=== PATIENT | female | born 1985 | race Caucasian/White ===

== ENCOUNTER 2016-03-06 22:11 | Inpatient (IN) | payer MEDICAID ==
[2016-03-06] MEDS ORDERED: NORMAL SALINE 1000 ML 1,000 ML IV PRN ×2 (22:30→22:57)
[2016-03-06] MEDS ORDERED: PROMETHAZINE HCL 25 MG TABLET PO ONE (22:57)
[2016-03-06] MEDS ORDERED: OXYCODONE-ACETAMINOPHEN 5-325 MG TABLET PO ONE (22:57)
--- NOTE | 2016-03-06 22:58 | ER Document Report ---
ED Blood Sugar Problem - General Chief Complaint: High Blood Sugar Stated Complaint: BLOOD SUGAR PROBLEMS Time seen by provider: 22:57 Mode of Arrival: Ambulatory Information source: Patient TRAVEL OUTSIDE OF THE [place] IN LAST 30 DAYS: No - HPI Patient complains to provider of: elevated blood sugar Onset: This morning Onset/Duration: Worse Quality of pain: Achy Severity: Moderate Insulin taken: Yes Associated symptoms: Increased thirst, Frequent urination, Nausea Similar symptoms previously: Yes Notes: Patient is a 30-year-old female with a history of type I diabetes who presents to the emergency room complaining of elevated blood sugar with increased thirst and urination that started earlier today, she denies any nausea, vomiting or diarrhea, no fever or chills, she does report mild dysuria, and generalized weakness and body aches, patient does report having recent dental extractions on the , had multiple teeth pulled from the right mandibular region, she states she did take some insulin this morning - Related Data Allergies/Adverse Reactions: amoxicillin trihydrate [From Augmentin] Allergy (Unknown, Verified 03/13/15 14: 46) methylphenidate HCl [From Ritalin] Allergy (Unknown, Verified 03/13/15 14:46) Penicillins Allergy (Unknown, Verified 03/13/15 14:46) Potassium Clavulanate * [From Augmentin] Allergy (Unknown, Verified 03/13/15 14: 46) Sulfa (Sulfonamide Antibiotics) Allergy (Unknown, Verified 03/13/15 14:46) amoxicillin [Amoxicillin] Allergy (Verified 03/13/15 14:46) buspirone HCl [From BuSpar] Allergy (Verified 03/13/15 14:46) Psychosis enoxaparin sodium [From Lovenox] Allergy (Verified 03/13/15 14:46) Estrogens Allergy (Verified 03/13/15 14:46) Heparin Analogues [Heparin Agents] Allergy (Verified 03/13/15 18:53) ondansetron HCl [From Zofran] Allergy (Verified 03/13/15 14:46) Past Medical History - General Information source: Patient - Social History Smoking Status: Current Every Day Smoker Family History: Arthritis, CAD, DM, Hyperlipidemia, Hypertension, Malignancy, Thyroid Disfunction - Past Medical History Cardiac Medical History: Reports: Hx Hypercholesterolemia Pulmonary Medical History: Reports: Hx Asthma, Hx Pneumonia Neurological Medical History: Reports: Hx Seizures - DUE RITALIN Endocrine Medical History: Reports: Hx Diabetes Mellitus Type 1, Hx Hypothyroidism Renal/ Medical History: Reports: Hx Ovarian Cysts GI Medical History: Reports: Hx Gastroesophageal Reflux Disease Musculoskeltal Medical History: Reports Hx Arthritis, Reports Hx Musculoskeletal Trauma - foot fracture Psychiatric Medical History: Reports: Hx Bipolar Disorder, Hx Depression, Hx Schizophrenia Traumatic Medical History: Reports: Hx Fractures - left foot Past Surgical History: Reports: Hx Dilation and Curettage, Hx Oral Surgery - wisdom tooth - Immunizations Immunizations up to date: Yes Hx Diphtheria, Pertussis, Tetanus Vaccination: Yes Hx Pneumococcal Vaccination: 04/16/08 Review of Systems - Review of Systems Constitutional: See HPI EENT: No symptoms reported Cardiovascular: No symptoms reported Respiratory: No symptoms reported Gastrointestinal: No symptoms reported. denies: Abdominal pain, Diarrhea, Nausea, Vomiting Genitourinary: Frequency, Other - Increased thirst Female Genitourinary: No symptoms reported Musculoskeletal: See HPI Skin: No symptoms reported Hematologic/Lymphatic: No symptoms reported Neurological/Psychological: No symptoms reported -: Yes All other systems reviewed and negative Physical Exam - Vital signs Vitals: Temp Pulse Resp BP Pulse Ox 98.6 F 106 H 20 145/93 H 97 03/06/16 22:15 03/06/16 22:15 03/06/16 22:15 03/06/16 22:15 03/06/16 22:15 Interpretation: Hypertensive, Tachycardic - General General appearance: Appears well, Alert - HEENT Head: Normocephalic, Atraumatic Eyes: Normal Pupils: PERRL - Respiratory Respiratory status: No respiratory distress Chest status: Nontender Breath sounds: Normal Chest palpation: Normal - Cardiovascular Rhythm: Regular Heart sounds: Normal auscultation Murmur: No - Abdominal Inspection: Normal Distension: No distension Bowel sounds: Normal Tenderness: Nontender Organomegaly: No organomegaly - Back Back: Normal, Nontender - Extremities General upper extremity: Normal inspection, Nontender, Normal color, Normal ROM , Normal temperature General lower extremity: Normal inspection, Nontender, Normal color, Normal ROM , Normal temperature, Normal weight bearing. No: Donna's sign - Neurological Neuro grossly intact: Yes Cognition: Normal Orientation: AAOx4 Michael Coma Scale Eye Opening: Spontaneous Happy Coma Scale Verbal: Oriented Happy Coma Scale Motor: Obeys Commands Happy Coma Scale Total: 15 Speech: Normal Motor strength normal: LUE, RUE, LLE, RLE Sensory: Normal - Psychological Associated symptoms: Normal affect, Normal mood - Skin Skin Temperature: Warm Skin Moisture: Dry Skin Color: Normal Course - Re-evaluation Re-evalutation: 03/07/16 00:29 Patient was discussed with the hospitalist who agrees to admit to the [facility] for further evaluation and treatment of nonketotic hyperosmolar hyperglycemia, patient will be started on an insulin drip, this plan was discussed with patient who is in agreement - Vital Signs Vital signs: Temp Pulse Resp BP Pulse Ox 98.6 F 106 H 20 145/93 H 97 03/06/16 22:15 03/06/16 22:15 03/06/16 22:15 03/06/16 22:15 03/06/16 22:15 - Laboratory Result Diagrams: 03/06/16 22:35 03/06/16 22:35 Laboratory results interpreted by me: 03/06/16 03/06/16 03/06/16 22:35 22:35 22:35 RBC 3.35 L Hgb 10.7 L Hct 33.1 L MCV 99 H VBG HCO3 Sodium 111.2 L* Potassium 5.6 H Chloride 77 L Carbon Dioxide 15 L BUN 39 H Creatinine 1.69 H Est GFR ( Amer) 43 L Est GFR (Non-Af Amer) 36 L Glucose 1313 H* Serum Osmolality 325 H Total Protein 5.8 L Albumin 3.2 L Urine Glucose (UA) Urine Ketones Urine Blood 03/06/16 03/06/16 22:35 22:35 RBC Hgb Hct MCV VBG HCO3 18.3 L Sodium Potassium Chloride Carbon Dioxide BUN Creatinine Est GFR ( Amer) Est GFR (Non-Af Amer) Glucose Serum Osmolality Total Protein Albumin Urine Glucose (UA) >=500 H Urine Ketones 20 H Urine Blood SMALL H - Transfer of Care Care transferred to following provider: Dr. Miller Critical Care Note - Critical Care Note Total time excluding time spent on procedures (mins): 30 Comments: Patient with markedly elevated blood sugar consistent with nonketotic hyperosmolar hyperglycemia, requiring insulin drip and IMCU admission Discharge - Discharge Clinical Impression: Type 1 diabetes mellitus with hyperosmolarity without nonketotic hyperglycemic hyperosmolar coma Condition: Serious Disposition: ADMITTED INPATIENT Admitting Provider: Hospitalist Unit Admitted: [facility]
[2016-03-06 23:04] LABS: ABSOLUTE BASOPHILS # (AUTO) 0.1 10^3/uL (0.0-0.2); ABSOLUTE EOSINOPHILS # (AUTO) 0.2 10^3/uL (0.0-0.6); ABSOLUTE MONOCYTES (AUTO) 0.6 10^3/uL (0.1-1.4); ABSOLUTE NEUT (AUTO) 4.8 10^3/uL (1.7-8.2); BASOPHILS % (AUTO) 0.8 % (0-2); EOSINOPHILS % (AUTO) 2.8 % (0-6); HEMATOCRIT 33.1 % (36.0-47.0); HEMOGLOBIN 10.7 g/dL (12.0-15.5); LYMPHOCYTES % (AUTO) 25.6 % (13-45); MEAN CORPUSCULAR HEMOGLOBIN 31.9 pg (27.0-33.4); MEAN CORPUSCULAR HGB CONC 32.3 g/dL (32.0-36.0); MEAN CORPUSCULAR VOLUME 99 fl (80-97); MONOCYTES % (AUTO) 8.5 % (3-13); RED BLOOD COUNT 3.35 10^6/uL (3.72-5.28); RED CELL DISTRIBUTION WIDTH 13.3 % (11.5-14.0); SEGMENTED NEUTROPHILS % (AUTO) 62.3 % (42-78); WHITE BLOOD COUNT 7.7 10^3/uL (4.0-10.5)
[2016-03-06 23:09] LABS: VENOUS BLOOD BASE EXCESS -6.8 mmol/L; VENOUS BLOOD HCO3 18.3 mmol/L (20-32); VENOUS BLOOD PCO2 35.4 mmHg (35-63); VENOUS BLOOD PH 7.33 (7.30-7.42)
[2016-03-06 23:14] LABS: APPEARANCE,URINE CLEAR; BILIRUBIN,URINE NEGATIVE (NEGATIVE); GLUCOSE, URINE >=500 mg/dL (NEGATIVE); KETONES,URINE 20 mg/dL (NEGATIVE); LEUKOCYTE ESTERASE,URINE NEGATIVE (NEGATIVE); NITRITE,URINE NEGATIVE (NEGATIVE); PROTEIN,URINE NEGATIVE (NEGATIVE); UROBILINOGEN,URINE NEGATIVE mg/dL (<2.0)
[2016-03-06 23:25] LABS: ALANINE AMINOTRANSFERASE 31 U/L (9-52); ALBUMIN 3.2 g/dL (3.5-5.0); ALKALINE PHOSPHATASE 125 U/L (38-126); ANION GAP 19 (5-19); ASPARTATE AMINO TRANSFERASE 18 U/L (14-36); BILIRUBIN,TOTAL 0.8 mg/dL (0.2-1.3); BLOOD UREA NITROGEN 39 mg/dL (7-20); CALCIUM 9.2 mg/dL (8.4-10.2); CARBON DIOXIDE 15 mmol/L (22-30); CHLORIDE 77 mmol/L (98-107); CREATININE RESULT 1.69 mg/dL (0.52-1.25); POTASSIUM 5.6 mmol/L (3.6-5.0); TOTAL PROTEIN 5.8 g/dL (6.3-8.2)
[2016-03-07 00:02] LABS: GLUCOSE 1313 mg/dL (75-110); SODIUM 111.2 mmol/L (137-145)
[2016-03-07] MEDS ORDERED: GLUCAGON,HUMAN RECOMB 1 MG INJ IM PRN (00:04)
[2016-03-07] MEDS ORDERED: NORMAL SALINE 100 ML with INSULIN REGULAR, HUMAN 100 UNIT IV PRN ×4 (00:04→01:38)
[2016-03-07] MEDS ORDERED: DEXTROSE 40% GEL 15 GM TUBE PO PRN ×4 (00:04→01:38)
[2016-03-07] MEDS ORDERED: DEXTROSE 50%-WATER 25 GM/50 ML DISP.SYRIN IV PRN ×4 (00:04→01:38)
[2016-03-07] MEDS ORDERED: INSULIN LISPRO 100 UNIT/ML 3 ML VIAL ONE (00:11)
[2016-03-07 00:49] LABS: ADD ON TESTING BLD IN LAB ACKNOWLEDGE
[2016-03-07] MEDS ORDERED: NORMAL SALINE 1000 ML 2,000 ML IV ONE ×2 (01:25→02:33)
[2016-03-07] MEDS ORDERED: NORMAL SALINE 1000 ML 1,000 ML IV PRN (01:29)
[2016-03-07] MEDS ORDERED: IPRATROPIUM/ALBUTEROL 0.5-2.5 MG/3 ML AMPUL NEB PRN (01:34)
[2016-03-07] MEDS ORDERED: ACETAMINOPHEN 325 MG TABLET PO PRN (01:34)
[2016-03-07] MEDS ORDERED: NICOTINE 14 MG/24 HR PATCH.TD24 TD PRN (01:35)
[2016-03-07 02:01] LABS: URINE BARBITURATES SCREEN NEGATIVE; URINE METHADONE SCREEN NEGATIVE; URINE PHENCYCLIDINE SCREEN NEGATIVE
[2016-03-07 02:01] LABS: PROTHROMBIN TIME 12.5 SEC (11.4-15.4)
[2016-03-07 02:02] LABS: PARTIAL THROMBOPLASTIN TIME 31.4 SEC (23.5-35.8)
--- NOTE | 2016-03-07 02:11 | PDOC H&P ---
History of Present Illness Admission Date/PCP: 03/07/16 00:20 LION LOPEZ DO, [facility] Patient complains of: BLOOD SUGAR PROBLEMS History of Present Illness: DADA SWEET is a 30 year old female, with underlying type I diabetes mellitus, bipolar disorder, and hypothyroidism, along with other diagnoses to be listed below, and with a long history of noncompliance to both medications and diet, who presents to the emergency room yet again for above complaint. Has a history of multiple admissions to our facility for same, typically DKA. Patient has been discussed with emergency room physician who evaluated the patient. Has noted approximate 24-hour history of elevated blood sugar, with associated increased thirst and urination. Nausea, but no vomiting. No fever chills, diarrhea or dysuria. States has probably been about 4 days since she last had a bowel movement, which is not unusual for her, according to the patient. Denies any "sore spots" anywhere on her body or infected draining areas. Has noted recent onset of a slightly productive cough. Denies chest pain. States she's been compliant with her medications. Status post extraction of multiple teeth, right mandibular and maxillary, on the 10th of this month. Laboratory results are listed in [employer] and are reviewed. X-ray chest x-ray pending. EKG reviewed. Social history/personal habits: . No children. On disability. Half- pack of cigarettes per day. No alcohol or illicit drug use. Allergies/adverse reactions are listed in [employer] and are reviewed. Home medications are reviewed bottle review and discussion with patient and are to be reconciled by nursing staff in [facility]. Home medications initially autopopulated into [employer] may not accurately reflect patient's true medications, dosages, and/or frequencies. REVIEW OF SYSTEMS: Constitutional: No fever or chills. Eyes: Wears glasses. ENT: No swallowing problems or complaints. No hearing problems or complaints. Pulmonary: No current complaints. Cardiovascular: No current complaints, including chest pain. Gastrointestinal: See history and present illness. Skin: No current complaints, including rashes. Hematologic: No unusual easy bruising or bleeding. Neurologic: No current complaints, including numbness or tingling. Musculoskeletal: No current complaints, including painful joints. Psychiatric: Anxiety depression; denies suicidal or homicidal ideation. Endocrine: See history and present illness. Genitourinary: No current complaints, including dysuria. PHYSICAL EXAMINATION: 5 feet 4 inches tall. 66.1 kg. BMI 25 kg/m. Blood pressure 147/94. Pulse 101 and regular. 97% saturation on room air. Respirations are 25 and unlabored. Temperature 98.6. Slightly overweight otherwise well-nourished well-developed though somewhat chronically ill-appearing female who nevertheless appears approximately her stated age. Initially asleep, but awakens easily. Pleasant alert and cooperative. Mildly anxious; otherwise no obvious distress. Female emergency room nurse Fabi is present. Skin is warm and dry. No grossly obvious evidence of rash in areas of skin examined. No subcutaneous nodules palpated. ENT: Hearing grossly normal to normal conversation. Tongue midline on protrusion pink and slightly tacky. Eyes: No scleral icterus. Pupils equal and reactive to light at 4 mm. [place] conjunctivae. Neck is supple and nontender to gentle active range of motion and palpation. Midline trachea. No palpable thyroid nodule mass enlargement or tenderness. Lymphatic: No palpable cervical or clavicular nodes. Neck and lymphatic exams limited by patient body habitus. Psychiatric: Fair to reasonable insight into acute and chronic medical issues. Oriented to time location and why here. Lungs: Auscultation reveals clear and equal breath sounds bilaterally. No use of accessory respiratory muscles. Occasional slightly productive cough. Cardiovascular: Heart regular rate and rhythm, without gallop murmur or rub. No carotid or abdominal aortic bruits. No ankle or pedal edema. palpable dorsalis pedis pulses. Abdomen: soft, slightly obese, nontender with positive bowel sounds. Unable to adequately evaluate abdomen for masses or organomegaly due to body habitus. Extremities: Feet are warm and dry. No calf tenderness to compression. No grossly obvious visual evidence of calf swelling. Gentle manipulation of lower extremities fails to reveal any obvious evidence of injury or instability to knees hips or ankles. Neurologic: Moves upper extremities grossly normally. Moves from a lateral decubitus to supine position without undue difficulty. Patellar reflexes absent. Light touch is intact at feet. Dorsiflexion and plantarflexion of feet 5 / 5 and symmetric. Past Medical History Cardiac Medical History: Reports: Pulmonary Embolism - History of same. Denies: Congestive Heart Failure, DVT, Myocardial Infarction, Hypertension Pulmonary Medical History: Reports: Asthma, Pneumonia EENT Medical History: Reports: Eyes - Reading glasses Denies: Ears, Throat Neurological Medical History: Reports: Seizures - DUE RITALIN Denies: Hemorrhagic CVA, Ischemic CVA Endocrine Medical History: Reports: Diabetes Mellitus Type 1, Hypothyroidism Renal/ Medical History: Reports: None GI Medical History: Reports: Gastroesophageal Reflux Disease Denies: Cirrhosis, Hepatitis, Peptic Ulcer Disease Musculoskeltal Medical History: Denies: Arthritis Skin Medical History: Reports: None Denies: Eczema, Psoriasis Psychiatric Medical History: Reports: Bipolar Disorder, Depression, General Anxiety Disorder, Tobacco Dependency Denies: Alcohol Dependency, Substance Abuse Hematology: Denies: Anemia Infectious Medical History: Denies: Hepatitis B, Hepatitis C Past Surgical History Past Surgical History: Reports: Other - D&C. Multiple dental extractions. Social History Information Source: Patient, Emergency Med Personnel, [facility] Records Smoking Status: Current Every Day Smoker Frequency of Alcohol Use: None Drugs: None - Advance Directive Resuscitation Status: Full Code Surrogate healthcare decision maker:: Mother Family History Family History: Arthritis, CAD, DM, Hyperlipidemia, Hypertension, Malignancy, Thyroid Disfunction Parental Family History Reviewed: Yes Children Family History Reviewed: NA Sibling(s) Family History Reviewed.: Yes Medication/Allergy Home Medications: Albuterol Sulfate [Proair HFA Inhalation Aerosol 8.5 gm MDI] 1 puff IH Q4HP PRN 03/07/16 Benztropine Mesylate [Cogentin 1 mg Tablet] 1 tab PO BID 03/07/16 Clonazepam [Klonopin] 0.5 mg PO BID 03/07/16 Cyclobenzaprine HCl [Flexeril 10 mg Tablet] 10 mg PO QHS 03/07/16 Folic Acid 0.8 mg PO DAILY 03/07/16 Gabapentin [Neurontin 300 mg Capsule] 300 mg PO Q12 03/07/16 Haloperidol [Haldol 5 mg Tablet] 15 mg PO QHS 03/07/16 Ibuprofen [Motrin 800 mg Tablet] 800 mg PO TID 03/07/16 Insulin Aspart [Novolog Flexpen] 0 unit SUBCUT .SLD SCALE 03/07/16 Insulin Degludec [Tresiba Flextouch U-100] 20 unit SQ QAM 03/07/16 Levothyroxine Sodium [Synthroid 0.15 mg Tablet] 0.15 mg PO DAILY 03/07/16 Omeprazole 40 mg PO BID 03/07/16 Allergies/Adverse Reactions: amoxicillin trihydrate [From Augmentin] Allergy (Unknown, Verified 03/13/15 14: 46) methylphenidate HCl [From Ritalin] Allergy (Unknown, Verified 03/07/16 05:10) seizure Penicillins Allergy (Unknown, Verified 03/13/15 14:46) Potassium Clavulanate * [From Augmentin] Allergy (Unknown, Verified 03/13/15 14: 46) Sulfa (Sulfonamide Antibiotics) Allergy (Unknown, Verified 03/07/16 05:10) rash amoxicillin [Amoxicillin] Allergy (Verified 03/13/15 14:46) buspirone HCl [From BuSpar] Allergy (Verified 03/13/15 14:46) Psychosis enoxaparin sodium [From Lovenox] Allergy (Verified 03/07/16 05:09) rash Estrogens Allergy (Verified 03/13/15 14:46) fondaparinux [From Arixtra] Allergy (Verified 03/07/16 05:09) rash Heparin Analogues [Heparin Agents] Allergy (Verified 03/07/16 05:09) rash ondansetron HCl [From Zofran] Allergy (Verified 03/13/15 14:46) Physical Exam Vital Signs: Temp Pulse Resp BP Pulse Ox 98.6 F 106 H 20 147/94 H 97 03/06/16 22:15 03/06/16 22:15 03/07/16 01:00 03/07/16 01:00 03/07/16 01:01 Intake & Output 03/06/16 03/07/16 03/08/16 00:59 00:59 00:59 Weight 66.1 kg Assessment & Plan - Diagnosis (1) History of medication noncompliance Is this a current diagnosis for this admission?: Yes (2) Tobacco dependency Is this a current diagnosis for this admission?: YesPlan: When necessary nicotine patch. (3) Cough Is this a current diagnosis for this admission?: YesPlan: Chest x-ray. (4) Hypothyroidism Qualifiers: Hypothyroidism type: unspecified Qualified Code(s): E03.9 - Hypothyroidism, unspecified Is this a current diagnosis for this admission?: YesPlan: TSH pending. Resume home medications as appropriate once these have been reviewed. (5) Acute renal failure (ARF) Qualifiers: Acute renal failure type: unspecified Qualified Code(s): N17.9 - Acute kidney failure, unspecified Is this a current diagnosis for this admission?: YesPlan: Likely prerenal. Serial chemistry. (6) Type 1 diabetes mellitus with hyperosmolarity without nonketotic hyperglycemic hyperosmolar coma Is this a current diagnosis for this admission?: YesPlan: Patient will be admitted under DKA protocol. Insulin drip. Vigorous fluid hydration. Strict intake and output. Q 4 hours chemistry 7. Hourly Accu- Cheks. Addition of dextrose to intravenous fluid once serum glucose and/or Accu- Cheks 275 or less. Patient is full code. I have strongly encouraged patient not to get out of bed without notifying staff , to avoid a fall with injury. Knee high SCDs for DVT prophylaxis. Impression and plans were discussed with patient , who concurs. Critical care Time spent in evaluation and management of patient: 65 minutes (7) DVT prophylaxis Is this a current diagnosis for this admission?: YesPlan: With allergies to Heparin, Lovenox, and Arixtra, and with personal history of PE , will add aspirin to standard SCD's. - Inpatient Certification Based on my medical assessment, after consideration of the patient's comorbidities, presenting symptoms, or acuity I expect that the services needed warrant INPATIENT care.: Yes I certify that my determination is in accordance with my understanding of Medicare's requirements for reasonable and necessary INPATIENT services [42 CFR 412.3e].: Yes Medical Necessity: Need Close Monitoring Due to Risk of Patient Decompensation, Need For IV Fluids, Need For Continuous Telemetry Monitoring, Risk of Complication if Not Cared For in Hospital, Risk of Diagnosis Which Will Require Inpatient Eval/Care/Monitoring Post Hospital Care: D/C or Transfer Summary
[2016-03-07 02:24] LABS: CREATINE KINASE MB 0.82 ng/mL (<4.55)
[2016-03-07 02:25] LABS: TROPONIN I < 0.012 ng/mL
[2016-03-07 02:32] LABS: ANION GAP 14 (5-19); BLOOD UREA NITROGEN 38 mg/dL (7-20); CALCIUM 8.3 mg/dL (8.4-10.2); CARBON DIOXIDE 17 mmol/L (22-30); CHLORIDE 90 mmol/L (98-107); CREATINE KINASE 77 U/L (30-135); CREATININE RESULT 1.53 mg/dL (0.52-1.25); SODIUM 121.2 mmol/L (137-145)
[2016-03-07 02:48] LABS: GLUCOSE 1011 mg/dL (75-110)
[2016-03-07 02:49] LABS: POTASSIUM 4.4 mmol/L (3.6-5.0)
[2016-03-07] MEDS ORDERED: PROMETHAZINE HCL INJ 25 MG/1 ML VIAL IV PRN (03:11)
[2016-03-07] MEDS ORDERED: DEXTROSE 5%-NORMAL SALINE 1,000 ML IV PRN (06:11)
[2016-03-07 06:37] LABS: ABSOLUTE BASOPHILS # (AUTO) 0.1 10^3/uL (0.0-0.2); ABSOLUTE EOSINOPHILS # (AUTO) 0.4 10^3/uL (0.0-0.6); ABSOLUTE LYMPHOCYTES (AUTO) 3.6 10^3/uL (0.5-4.7); ABSOLUTE MONOCYTES (AUTO) 0.7 10^3/uL (0.1-1.4); ABSOLUTE NEUT (AUTO) 4.4 10^3/uL (1.7-8.2); BASOPHILS % (AUTO) 0.7 % (0-2); EOSINOPHILS % (AUTO) 4.2 % (0-6); HEMATOCRIT 30.4 % (36.0-47.0); HEMOGLOBIN 10.5 g/dL (12.0-15.5); HGB HCT DIFFERENCE 1.1; LYMPHOCYTES % (AUTO) 38.9 % (13-45); MEAN CORPUSCULAR HGB CONC 34.5 g/dL (32.0-36.0); MONOCYTES % (AUTO) 8.2 % (3-13); RED BLOOD COUNT 3.39 10^6/uL (3.72-5.28); RED CELL DISTRIBUTION WIDTH 12.8 % (11.5-14.0); WHITE BLOOD COUNT 9.2 10^3/uL (4.0-10.5)
[2016-03-07 06:42] LABS: MEAN CORPUSCULAR VOLUME 90 fl (80-97)
[2016-03-07 07:02] LABS: ANION GAP 13 (5-19); BLOOD UREA NITROGEN 30 mg/dL (7-20); CARBON DIOXIDE 19 mmol/L (22-30); CHLORIDE 105 mmol/L (98-107); CREATININE RESULT 1.14 mg/dL (0.52-1.25); GLUCOSE 235 mg/dL (75-110); POTASSIUM 3.6 mmol/L (3.6-5.0); SODIUM 136.5 mmol/L (137-145)
[2016-03-07 08:07] VITALS: BP 122/83
[2016-03-07] MEDS ORDERED: FOLIC ACID 1 MG TABLET PO SCH (10:00)
[2016-03-07] MEDS ORDERED: ASPIRIN 81 MG TABLET, ENT COATED PO SCH (10:00)
[2016-03-07] MEDS ORDERED: (PENDING PHARMACY ID) (Folic Acid [Folic Acid] 0.8 MG) PO SCH (10:00)
[2016-03-07] MEDS ORDERED: BENZTROPINE MESYLATE 1 MG TABLET PO SCH ×2 (10:00→22:00)
[2016-03-07] MEDS ORDERED: HALOPERIDOL 5 MG TABLET PO SCH ×2 (10:00→22:00)
[2016-03-07] MEDS ORDERED: FAMOTIDINE INJ/PF 20 MG/2 ML SDV IV SCH (10:00)
[2016-03-07] MEDS ORDERED: GABAPENTIN 300 MG CAPSULE PO SCH ×2 (10:00→22:00)
[2016-03-07] MEDS ORDERED: LEVOTHYROXINE SODIUM 0.15 MG TABLET PO SCH (10:00)
[2016-03-07] MEDS ORDERED: DOCUSATE SODIUM 100 MG CAPSULE PO SCH (10:00)
[2016-03-07] MEDS ORDERED: HALOPERIDOL 15 MG PO SCH (10:00)
--- NOTE | 2016-03-07 10:05 | EKG REPORT ---
SEVERITY:- OTHERWISE NORMAL ECG - SINUS TACHYCARDIA : Confirmed by: Nimo Herrera MD 07-Mar-2016 10:04:47
[2016-03-07 10:40] LABS: ANION GAP 12 (5-19); BLOOD UREA NITROGEN 23 mg/dL (7-20); CARBON DIOXIDE 18 mmol/L (22-30); CHLORIDE 111 mmol/L (98-107); CREATININE RESULT 0.93 mg/dL (0.52-1.25); GLUCOSE 99 mg/dL (75-110); POTASSIUM 3.3 mmol/L (3.6-5.0); SODIUM 140.6 mmol/L (137-145)
[2016-03-07] MEDS ORDERED: (PENDING PHARMACY ID) (Clonazepam [Klonopin] 0.5 MG) PO PRN (12:07)
[2016-03-07] MEDS ORDERED: LEVOTHYROXINE SODIUM 0.15 MG TABLET PO ONE (13:00)
[2016-03-07] MEDS ORDERED: POTASSIUM CHLORIDE 10 MEQ TABLET.SA PO ONE (13:30)
[2016-03-07] MEDS ORDERED: CLONAZEPAM 1 MG TABLET PO PRN (13:54)
[2016-03-07] MEDS ORDERED: LANSOPRAZOLE 30 MG TAB.RAP.DR PO SCH (18:00)
[2016-03-07] MEDS ORDERED: (PENDING PHARMACY ID) (Doxepin Hcl [Doxepin Hcl] 100 MG) PO SCH (22:00)
[2016-03-07] MEDS ORDERED: CYCLOBENZAPRINE HCL 10 MG TABLET PO SCH (22:00)
[2016-03-07] MEDS ORDERED: DOXEPIN HCL 25 MG CAPSULE PO SCH (22:00)
[2016-03-08] MEDS ORDERED: (PENDING PHARMACY ID) (Folic Acid [Folic Acid] 0.8 MG) PO SCH (10:00)
[2016-03-08] MEDS ORDERED: LEVOTHYROXINE SODIUM 0.15 MG TABLET PO SCH (10:00)
--- NOTE | 2016-03-08 17:28 | DISCHARGE SUMMARY E ---
Discharge Summary NAME: DADA SWEET : 1985 AGE: 30Y ADMITTED: 03/07/2016 DISCHARGED: 03/07/2016 AGAINST MEDICAL ADVICE DATE PATIENT LEFT AMA: 03/07/2016 CODE STATUS AT TIME OF AMA: FULL CODE. PRIMARY CARE PROVIDER: Elana Escalera. WORKING DIAGNOSIS AT TIME OF AMA: 1. Hyperosmolar nonketotic state. 2. Diabetes mellitus type 1. 3. Noncompliance. 4. Bipolar disorder. 5. History of pulmonary embolism. 6. History of asthma. 7. Hypothyroidism. 8. Gastroesophageal reflux disease. 9. General anxiety disorder. 10. Tobacco dependency. HISTORY OF PRESENT ILLNESS: The patient is a 30-year-old female with a past medical history of diabetes mellitus type 1 and numerous admissions for diabetic ketoacidosis that is well known to the hospitalist service. The patient presented to the Emergency Department with a chief complaint of blood sugar problems. The patient noted a 24-hour history of having elevated blood sugars with an associated increased thirst, urination, nausea without vomiting. The patient denied any fevers, chills, diarrhea, dysuria. The patient had stated that she had indeed been compliant with her medications, however, was unable to produce the bottles for such. The patient on presentation was found to have glucose of 1313 with a sodium of 111, potassium of 5.6, CO2 of 15 without a gap. The patient's TSH was found to be 94, and the patient was referred to the hospitalist for admission and management. HOSPITAL COURSE: The patient was admitted to [facility]. The patient was aggressively volume resuscitated and was started on an insulin drip at [facility] protocol. The patient's blood sugars did improve, and the patient's electrolytes improved with hydration; however, as soon as the patient's blood sugars were in the 200 range, the patient requested against medical advice paperwork as she wanted to leave. The patient would not give specific reason other than she no longer needed to be in the hospital, and the patient left against medical advice. The patient was aware of the risks associated with this including . TIME SPENT: Time spent on this AMA summary is 10 minutes. DICTATING PHYSICIAN: ADITYA FELIX NP [id number] PHY#: [id number] ID: [id number] JOB#: [id number] ACCT: [id number] cc:Maegan HURST NP >
== END 2016-03-07 13:45 | disposition left against medical advice (07) | DRG 639 ==
LOC: ER 22:11 → EH 03-07 00:20 → UNDOADMIN 03-07 00:20 → EH 03-07 01:34 → 3W 03-07 03:25
PROVIDERS: ADMIT Family Medicine; ATTEND Family Medicine
DX: E10.69 Type 1 diabetes mellitus with other specified complication (principal); E10.65 Type 1 diabetes mellitus with hyperglycemia; N17.9 Acute kidney failure, unspecified; F31.9 Bipolar disorder, unspecified; E03.9 Hypothyroidism, unspecified; F17.210 Nicotine dependence, cigarettes, uncomplicated; J45.909 Unspecified asthma, uncomplicated; E66.3 Overweight; D64.9 Anemia, unspecified; K21.9 Gastro-esophageal reflux disease without esophagitis; Z79.4 Long term (current) use of insulin; R05 Cough; F41.1 Generalized anxiety disorder; Z91.19 Patient's noncompliance with other medical treatment and regimen; Z86.711 Personal history of pulmonary embolism; Z88.0 Allergy status to penicillin; Z88.2 Allergy status to sulfonamides; Z88.8 Allergy status to other drugs, medicaments and biological substances; Z82.61 Family history of arthritis; Z83.3 Family history of diabetes mellitus; Z82.49 Family history of ischemic heart disease and other diseases of the circulatory system; Z80.9 Family history of malignant neoplasm, unspecified; Z98.818 Other dental procedure status
CPT/HCPCS: 36415; 71010; 80048; 80053; 80307; 81001; 82550; 82553; 82803; 82962; 83735; 83930; 84443; 84484; 84703; 85025; 85610; 85730; 93005; 93010; 94640; 96360; 99291; J1815; J7030; J7620; S0028

== ENCOUNTER 2016-04-22 09:40 | Emergency (ER) | payer MEDICAID, OTHER ==
[2016-04-22 11:24] LABS: APPEARANCE,URINE CLOUDY; BILIRUBIN,URINE NEGATIVE (NEGATIVE); GLUCOSE, URINE 150 mg/dL (NEGATIVE); KETONES,URINE NEGATIVE (NEGATIVE); LEUKOCYTE ESTERASE,URINE LARGE (NEGATIVE); NITRITE,URINE NEGATIVE (NEGATIVE); PROTEIN,URINE 100 mg/dL (NEGATIVE); URINE SPECIFIC GRAVITY 1.014; UROBILINOGEN,URINE NEGATIVE mg/dL (<2.0)
--- NOTE | 2016-04-22 11:48 | ER Document Report ---
ED General - General Chief Complaint: Urinary Problem Stated Complaint: URINARY SYMPTOMS Mode of Arrival: Ambulatory Information source: Patient Notes: 30-year-old female presents with 2 separate complaints. Patient notes that she' s been having burning on urination for the past 4 days. Patient also notes that she's had itching and rash of her left shoulder for 2-3 days. Patient notes she took Benadryl one time. Patient is unsure of any allergens TRAVEL OUTSIDE OF THE [place] IN LAST 30 DAYS: No - HPI Onset: Other Onset/Duration: Persistent Quality of pain: Burning Severity: Mild Pain Level: 1 Associated symptoms: Other Exacerbated by: Denies Relieved by: Denies Similar symptoms previously: No Recently seen / treated by doctor: No - Related Data Allergies/Adverse Reactions: amoxicillin trihydrate [From Augmentin] Allergy (Unknown, Verified 04/22/16 09: 43) methylphenidate HCl [From Ritalin] Allergy (Unknown, Verified 04/22/16 09:43) seizure Penicillins Allergy (Unknown, Verified 04/22/16 09:43) Potassium Clavulanate * [From Augmentin] Allergy (Unknown, Verified 04/22/16 09: 43) Sulfa (Sulfonamide Antibiotics) Allergy (Unknown, Verified 04/22/16 09:43) rash amoxicillin [Amoxicillin] Allergy (Verified 04/22/16 09:43) buspirone HCl [From BuSpar] Allergy (Verified 04/22/16 09:43) Psychosis enoxaparin sodium [From Lovenox] Allergy (Verified 04/22/16 09:43) rash Estrogens Allergy (Verified 04/22/16 09:43) fondaparinux [From Arixtra] Allergy (Verified 04/22/16 09:43) rash Heparin Analogues [Heparin Agents] Allergy (Verified 03/07/16 05:09) rash ondansetron HCl [From Zofran] Allergy (Verified 03/13/15 14:46) Past Medical History - General Last Menstrual Period: 1 year ago - Social History Smoking Status: Current Every Day Smoker Cigarette use (# per day): No Chew tobacco use (# tins/day): No Smoking Education Provided: No Frequency of alcohol use: None Drug Abuse: None Family History: Arthritis, CAD, DM, Hyperlipidemia, Hypertension, Malignancy, Thyroid Disfunction Patient has suicidal ideation: No - Past Medical History Cardiac Medical History: Reports: Hx Hypercholesterolemia, Hx Pulmonary Embolism - History of same. Denies: Hx Congestive Heart Failure, Hx DVT, Hx Heart Attack, Hx Hypertension Pulmonary Medical History: Reports: Hx Asthma, Hx Pneumonia Neurological Medical History: Reports: Hx Seizures - DUE RITALIN Endocrine Medical History: Reports: Hx Diabetes Mellitus Type 1, Hx Hypothyroidism Renal/ Medical History: Reports: Hx Ovarian Cysts. Denies: Hx Peritoneal Dialysis GI Medical History: Reports: Hx Gastroesophageal Reflux Disease. Denies: Hx Cirrhosis, Hx Hepatitis Musculoskeltal Medical History: Denies Hx Arthritis, Reports Hx Musculoskeletal Trauma - foot fracture Skin Medical History: Denies Hx Eczema, Denies Hx Psoriasis Psychiatric Medical History: Reports: Hx Bipolar Disorder, Hx Depression, Hx Schizophrenia Traumatic Medical History: Reports: Hx Fractures - left foot Infectious Medical History: Denies: Hx Hepatitis Past Surgical History: Reports: Hx Dilation and Curettage, Hx Oral Surgery - wisdom tooth, Other - D&C. Multiple dental extractions. - Immunizations Immunizations up to date: Yes Hx Diphtheria, Pertussis, Tetanus Vaccination: Yes Hx Pneumococcal Vaccination: 04/16/08 Review of Systems - Review of Systems Notes: REVIEW OF SYSTEMS: CONSTITUTIONAL : Denies fever, chills, or sweats. Denies recent illness. EENT: Denies eye, ear, throat, or mouth pain or symptoms. Denies nasal or sinus congestion or discharge. Denies throat, tongue, or mouth swelling or difficulty swallowing. CARDIOVASCULAR: Denies chest pain. Denies palpitations or racing or irregular heart beat. Denies ankle edema. RESPIRATORY: Denies cough, cold, or chest congestion. Denies shortness of breath, difficulty breathing, or wheezing. GASTROINTESTINAL: Denies abdominal pain or distention. Denies nausea, vomiting , or diarrhea. Denies blood in vomitus, stools, or per rectum. Denies black, tarry stools. Denies constipation. GENITOURINARY: Admits to burning on urination FEMALE GENITOURINARY: Denies vaginal bleeding, heavy or abnormal periods, irregular periods. Denies vaginal discharge or odor. MUSCULOSKELETAL: Denies back or neck pain or stiffness. Denies joint pain or swelling. SKIN: Admits to shoulder rash HEMATOLOGIC : Denies easy bruising or bleeding. LYMPHATIC: Denies swollen, enlarged glands. NEUROLOGICAL: Denies confusion or altered mental status. Denies passing out or loss of consciousness. Denies dizziness or lightheadedness. Denies headache. Denies weakness or paralysis or loss of use of either side. Denies problems with gait or speech. Denies sensory loss, numbness, or tingling. Denies seizures. PSYCHIATRIC: Denies anxiety or stress. Denies depression, suicidal ideation, or homicidal ideation. ALL OTHER SYSTEMS REVIEWED AND NEGATIVE. Dictation was performed using [employer] voice recognition software PHYSICAL EXAMINATION: GENERAL: Well-appearing, well-nourished and in no acute distress. HEAD: Atraumatic, normocephalic. EYES: Pupils equal round and reactive to light, extraocular movements intact, conjunctiva are normal. ENT: Nares patent, oropharynx clear without exudates. Moist mucous membranes. NECK: Normal range of motion, supple without lymphadenopathy LUNGS: Breath sounds clear to auscultation bilaterally and equal. No wheezes rales or rhonchi. HEART: Regular rate and rhythm without murmurs ABDOMEN: Soft, nontender, nondistended abdomen. No guarding, no rebound. No masses appreciated. Female : deferred Musculoskeletal: Normal range of motion, no pitting or edema. No cyanosis. NEUROLOGICAL: Cranial nerves grossly intact. Normal speech, normal gait. Normal sensory, motor exams PSYCH: Normal mood, normal affect. SKIN: Multiple hives noted of the left scapular and shoulder region no secondary sign of infection Physical Exam - Vital signs Vitals: Temp Pulse Resp BP Pulse Ox 97.4 F 88 14 122/76 99 04/22/16 09:44 04/22/16 09:44 04/22/16 09:44 04/22/16 09:44 04/22/16 09:44 Course - Re-evaluation Re-evalutation: 04/22/16 15:06 Urinalysis was consistent with a UTI, patient was started on antibiotic. She is instructed to take Benadryl for her hives. She is been given a double cutter for testing as well. Patient is rotated to return immediately if there are any other concerns After performing a Medical Screening Examination, I estimate there is LOW risk for AIRWAY COMPROMISE, ANAPHYLAXIS, CELLULITIS, EPIGLOTTIS, or NECROTIZING FASCIITIS, thus I consider the discharge disposition reasonable. Also, there is no evidence or peritonitis, sepsis, or toxicity. The patient and I have discussed the diagnosis and risks, and we agree with discharging home with close follow-up with the understanding that symptoms and presentations can change. We also discussed returning to the Emergency Department immediately if new or worsening symptoms occur. We have discussed the symptoms which are most concerning (e.g., difficulty breathing or swallowing, fever, changing or worsening pain) that necessitate immediate return. - Vital Signs Vital signs: Temp Pulse Resp BP Pulse Ox 97.5 F 84 16 120/81 99 04/22/16 11:44 04/22/16 11:44 04/22/16 11:44 04/22/16 11:44 04/22/16 11:44 - Laboratory Laboratory results interpreted by me: 04/22/16 10:44 Urine Protein 100 H Urine Glucose (UA) 150 H Urine Blood MODERATE H Ur Leukocyte Esterase LARGE H Discharge - Discharge Clinical Impression: allergic rash UTI (urinary tract infection) Qualifiers: Urinary tract infection type: acute cystitis Hematuria presence: with hematuria Qualified Code(s): N30.01 - Acute cystitis with hematuria Condition: Stable Disposition: HOME, SELF-CARE Instructions: Urinary Tract Infection ([facility]) Prescriptions: Cephalexin Monohydrate [Keflex 500 mg Capsule] 500 mg PO BID #10 capsule Phenazopyridine HCl [Pyridium 100 Mg Tablet] 100 mg PO Q8 #9 tablet Referrals: CLEMENTE COWART PA-C [Primary Care Provider] - Follow up in 3-5 days CHEMA ROBBINS DO [ACTIVE STAFF] - Follow up in 3-5 days
[2016-04-22 11:56] VITALS: BP 120/81
== END 2016-04-22 11:57 | disposition home or self-care (01) ==
LOC: ER 09:40
DX: N30.01 Acute cystitis with hematuria (principal); R30.0 Dysuria; L50.0 Allergic urticaria; F17.200 Nicotine dependence, unspecified, uncomplicated; E10.9 Type 1 diabetes mellitus without complications; J45.909 Unspecified asthma, uncomplicated; Z88.0 Allergy status to penicillin; Z88.8 Allergy status to other drugs, medicaments and biological substances; Z88.2 Allergy status to sulfonamides; Z86.711 Personal history of pulmonary embolism
CPT/HCPCS: 81001; 81025; 99283

== ENCOUNTER 2016-05-05 09:55 | Emergency (ER) | payer MEDICAID ==
[2016-05-05 10:03] VITALS: BP 102/66
--- NOTE | 2016-05-05 10:38 | ER Document Report ---
ED Extremity Problem, Lower - General Chief Complaint: Foot Injury Stated Complaint: FOOT PAIN Notes: She is a 30-year-old female, past medical history type I diabetes, schizophrenia , presents with right foot pain after she twisted her ankle last night and landed on her right foot. She says she is having pain when she walks. She denies numbness, tingling, open wounds, ankle pain or any other injuries. TRAVEL OUTSIDE OF THE [place] IN LAST 30 DAYS: No - Related Data Allergies/Adverse Reactions: amoxicillin trihydrate [From Augmentin] Allergy (Unknown, Verified 05/05/16 10: 02) methylphenidate HCl [From Ritalin] Allergy (Unknown, Verified 05/05/16 10:02) seizure Penicillins Allergy (Unknown, Verified 05/05/16 10:02) Potassium Clavulanate * [From Augmentin] Allergy (Unknown, Verified 05/05/16 10: 02) Sulfa (Sulfonamide Antibiotics) Allergy (Unknown, Verified 05/05/16 10:02) rash amoxicillin [Amoxicillin] Allergy (Verified 05/05/16 10:02) buspirone HCl [From BuSpar] Allergy (Verified 05/05/16 10:02) Psychosis enoxaparin sodium [From Lovenox] Allergy (Verified 05/05/16 10:02) rash Estrogens Allergy (Verified 05/05/16 10:02) fondaparinux [From Arixtra] Allergy (Verified 05/05/16 10:02) rash Heparin Analogues [Heparin Agents] Allergy (Verified 03/07/16 05:09) rash ondansetron HCl [From Zofran] Allergy (Verified 03/13/15 14:46) Past Medical History - General Information source: Patient - Social History Smoking Status: Current Every Day Smoker Chew tobacco use (# tins/day): No Frequency of alcohol use: None Drug Abuse: None Family History: Arthritis, CAD, DM, Hyperlipidemia, Hypertension, Malignancy, Thyroid Disfunction Patient has suicidal ideation: No Patient has homicidal ideation: No - Past Medical History Cardiac Medical History: Reports: Hx Hypercholesterolemia, Hx Pulmonary Embolism - History of same. Denies: Hx Congestive Heart Failure, Hx DVT, Hx Heart Attack, Hx Hypertension Pulmonary Medical History: Reports: Hx Asthma, Hx Pneumonia Neurological Medical History: Reports: Hx Seizures - DUE RITALIN Endocrine Medical History: Reports: Hx Diabetes Mellitus Type 1, Hx Hypothyroidism Renal/ Medical History: Reports: Hx Ovarian Cysts. Denies: Hx Peritoneal Dialysis GI Medical History: Reports: Hx Gastroesophageal Reflux Disease. Denies: Hx Cirrhosis, Hx Hepatitis Musculoskeltal Medical History: Denies Hx Arthritis, Reports Hx Musculoskeletal Trauma - foot fracture Skin Medical History: Denies Hx Eczema, Denies Hx Psoriasis Psychiatric Medical History: Reports: Hx Bipolar Disorder, Hx Depression, Hx Schizophrenia Traumatic Medical History: Reports: Hx Fractures - left foot Infectious Medical History: Denies: Hx Hepatitis Past Surgical History: Reports: Hx Dilation and Curettage, Hx Oral Surgery - wisdom tooth, Other - D&C. Multiple dental extractions. - Immunizations Immunizations up to date: Yes Hx Diphtheria, Pertussis, Tetanus Vaccination: Yes Hx Pneumococcal Vaccination: 04/16/08 Review of Systems - Review of Systems Notes: REVIEW OF SYSTEMS: CONSTITUTIONAL: -fevers, -chills EENT: -eye pain, -difficulty swallowing, -nasal congestion CARDIOVASCULAR:-chest pain, -syncope. RESPIRATORY: -cough, -SOB GASTROINTESTINAL: -abdominal pain, - nausea, -vomiting, -diarrhea GENITOURINARY: -dysuria, -hematuria MUSCULOSKELETAL: +right foot pain, -back pain, -neck pain SKIN: -rash or skin lesions. HEMATOLOGIC: -easy bruising or bleeding. LYMPHATIC: -swollen, enlarged glands. NEUROLOGICAL: -altered mental status or loss of consciousness, -headache, - neurologic symptoms PSYCHIATRIC: -anxiety, -depression. ALL OTHER SYSTEMS REVIEWED AND NEGATIVE. Physical Exam - Vital signs Vitals: Temp Pulse Resp BP Pulse Ox 97.4 F 98 18 102/66 98 05/05/16 10:05/05/16 10:05/05/16 10:01 05/05/16 10:05/05/16 10:01 - Notes Notes: PHYSICAL EXAMINATION: GENERAL: Well-appearing, well-nourished and in no acute distress. HEAD: Atraumatic, normocephalic. EYES: Pupils equal round and reactive to light, extraocular movements intact, sclera anicteric, conjunctiva are normal. ENT: nares patent, oropharynx clear without exudates. Moist mucous membranes. NECK: Normal range of motion, supple without lymphadenopathy LUNGS: Breath sounds clear to auscultation bilaterally and equal. No wheezes rales or rhonchi. HEART: Regular rate and rhythm without murmurs ABDOMEN: Soft, nontender, normoactive bowel sounds. No guarding, no rebound. No masses appreciated. EXTREMITIES: Tenderness over right distal 5th metatarsal, brisk capillary refill , N/V intact distally, Normal range of motion, no pitting or edema. No cyanosis. NEUROLOGICAL: Cranial nerves grossly intact. Normal speech, normal gait. Normal sensory, motor, and reflex exams. PSYCH: Normal mood, normal affect. SKIN: Warm, Dry, normal turgor, no rashes or lesions noted. Course - Re-evaluation Re-evalutation: Patient with no fractures on x-ray. No base of fifth metatarsal tenderness to suggest Salgado fracture. Placed in an Maximino wrap and instructed her about RICE. She will follow up with her primary care physician and ortho as needed. - Vital Signs Vital signs: Temp Pulse Resp BP Pulse Ox 97.4 F 98 18 102/66 98 05/05/16 10:05/05/16 10:05/05/16 10:05/05/16 10:05/05/16 10:01 - Diagnostic Test Radiology reviewed: Image reviewed, Reports reviewed Radiology results interpreted by me: Right x-ray and foot: NAD Discharge - Discharge Clinical Impression: Contusion of foot, right Qualifiers: Encounter type: initial encounter Qualified Code(s): S90.31XA - Contusion of right foot, initial encounter Condition: Stable Disposition: HOME, SELF-CARE Additional Instructions: Contusion Your injury has resulted in a contusion -- a crushing of the deep tissues. No injury to important structures was detected during the physician's exam. Contusions vary in the amount of pain they cause, and in the length of time required for healing. Typically, the area will become bruised, and will remain painful to touch for two or three weeks. However, most patients are back to working and playing within a few days. After the initial period of rest and cold-packs, your symptoms (together with the doctor's recommendations) will determine how rapidly you can get back to full activity. Usually this means "do what feels okay, but don't do things that hurt." If re-examination was recommended, it's important to follow up as instructed. Call the doctor or return any time if pain increases, if swelling becomes severe, if you develop numbness or weakness in an injured extremity, or if any other alarming symptoms occur. Referrals: KASI CROOKS MD [ACTIVE STAFF] - Follow up as needed
== END 2016-05-05 10:50 | disposition home or self-care (01) ==
LOC: ER 09:55
DX: S90.31XA Contusion of right foot, initial encounter (principal); X50.1XXA Overexertion from prolonged static or awkward postures, initial encounter; M79.671 Pain in right foot; E10.9 Type 1 diabetes mellitus without complications; J45.909 Unspecified asthma, uncomplicated; F17.200 Nicotine dependence, unspecified, uncomplicated; Z88.0 Allergy status to penicillin; Z88.8 Allergy status to other drugs, medicaments and biological substances; Z88.2 Allergy status to sulfonamides; Z86.711 Personal history of pulmonary embolism
CPT/HCPCS: 99283

== ENCOUNTER → 2016-05-11 | Outpatient (CLI) | payer MEDICAID | LOC: OD 10:33 | DX: J45.909 Unspecified asthma, uncomplicated (principal); M79.5 Residual foreign body in soft tissue; M72.2 Plantar fascial fibromatosis | CPT/HCPCS: 71020 ==

== ENCOUNTER 2016-05-13 13:05 | Emergency (ER) | payer MEDICAID ==
[2016-05-13] MEDS ORDERED: NORMAL SALINE 1000 ML 1,000 ML IV ONE (13:23)
--- NOTE | 2016-05-13 13:23 | ER Document Report ---
ED Medical Screen (RME) - General Stated Complaint: BLOOD SUGAR PROBLEMS Mode of Arrival: Wheelchair Information source: Patient Notes: She reports low blood sugar at home. Patient states that her blood glucose was 59 earlier this morning. Patient states most recently she was 75 around 12:30 today. Patient complains of slurred speech and feeling dizzy. Patient hypotensive in triage. Patient complains of right foot pain from a fall one week ago. Patient reports malodorous urine and UTI symptoms for the past 2 weeks. hx: Diabetes, thyroid, GERD, bipolar, schizophrenia I have greeted and performed a rapid initial assessment of this patient. A comprehensive ED assessment and evaluation of the patient, analysis of test results and completion of the medical decision making process will be conducted by additional ED providers. TRAVEL OUTSIDE OF THE [place] IN LAST 30 DAYS: No - Related Data Allergies/Adverse Reactions: amoxicillin trihydrate [From Augmentin] Allergy (Unknown, Verified 05/13/16 13: 18) methylphenidate HCl [From Ritalin] Allergy (Unknown, Verified 05/13/16 13:18) seizure Penicillins Allergy (Unknown, Verified 05/13/16 13:18) Potassium Clavulanate * [From Augmentin] Allergy (Unknown, Verified 05/13/16 13: 18) Sulfa (Sulfonamide Antibiotics) Allergy (Unknown, Verified 05/13/16 13:18) rash amoxicillin [Amoxicillin] Allergy (Verified 05/13/16 13:18) buspirone HCl [From BuSpar] Allergy (Verified 05/13/16 13:18) Psychosis enoxaparin sodium [From Lovenox] Allergy (Verified 05/13/16 13:18) rash Estrogens Allergy (Verified 05/13/16 13:18) fondaparinux [From Arixtra] Allergy (Verified 05/13/16 13:18) rash Heparin Analogues [Heparin Agents] Allergy (Verified 03/07/16 05:09) rash ondansetron HCl [From Zofran] Allergy (Verified 03/13/15 14:46) Past Medical History - Past Medical History Cardiac Medical History: Reports: Hx Hypercholesterolemia, Hx Pulmonary Embolism - History of same. Denies: Hx Congestive Heart Failure, Hx DVT, Hx Heart Attack, Hx Hypertension Pulmonary Medical History: Reports: Hx Asthma, Hx Pneumonia Neurological Medical History: Reports: Hx Seizures - DUE RITALIN Endocrine Medical History: Reports: Hx Diabetes Mellitus Type 1, Hx Hypothyroidism Renal/ Medical History: Reports: Hx Ovarian Cysts. Denies: Hx Peritoneal Dialysis GI Medical History: Reports: Hx Gastroesophageal Reflux Disease. Denies: Hx Cirrhosis, Hx Hepatitis Musculoskeltal Medical History: Denies Hx Arthritis, Reports Hx Musculoskeletal Trauma - foot fracture Skin Medical History: Denies Hx Eczema, Denies Hx Psoriasis Psychiatric Medical History: Reports: Hx Bipolar Disorder, Hx Depression, Hx Schizophrenia Traumatic Medical History: Reports: Hx Fractures - left foot Infectious Medical History: Denies: Hx Hepatitis Past Surgical History: Reports: Hx Dilation and Curettage, Hx Oral Surgery - wisdom tooth, Other - D&C. Multiple dental extractions. - Immunizations Immunizations up to date: Yes Hx Diphtheria, Pertussis, Tetanus Vaccination: Yes Physical Exam - Back Back: Normal. No: CVA tenderness - Extremities General lower extremity: Tender - Right foot
--- NOTE | 2016-05-13 13:41 | ER Document Report ---
ED Blood Sugar Problem - General Mode of Arrival: Wheelchair Information source: Patient TRAVEL OUTSIDE OF THE [place] IN LAST 30 DAYS: No - HPI Patient complains to provider of: Hypoglycemia Onset: Yesterday Onset/Duration: Gradual, Persistent Quality of pain: No pain Associated symptoms: Other - Cloudy urine with an odor x 1 week <NADER SAMSON - Last Filed: 05/13/16 14:12> <DIA CARLTON - Last Filed: 05/13/16 16:02> - General Chief Complaint: Low Blood Pressure Stated Complaint: BLOOD SUGAR PROBLEMS Notes: Patient is a 30-year-old female presenting to the emergency department concerned of hyperglycemia onset yesterday. Patient states her sugar just keeps dropping. Patient also notes 1 week of cloudy urine with an odor. Patient has no other complaints at this time. (NAEDR SAMSON) - Related Data Allergies/Adverse Reactions: amoxicillin trihydrate [From Augmentin] Allergy (Unknown, Verified 05/13/16 13: 18) methylphenidate HCl [From Ritalin] Allergy (Unknown, Verified 05/13/16 13:18) seizure Penicillins Allergy (Unknown, Verified 05/13/16 13:18) Potassium Clavulanate * [From Augmentin] Allergy (Unknown, Verified 05/13/16 13: 18) Sulfa (Sulfonamide Antibiotics) Allergy (Unknown, Verified 05/13/16 13:18) rash amoxicillin [Amoxicillin] Allergy (Verified 05/13/16 13:18) buspirone HCl [From BuSpar] Allergy (Verified 05/13/16 13:18) Psychosis enoxaparin sodium [From Lovenox] Allergy (Verified 05/13/16 13:18) rash Estrogens Allergy (Verified 05/13/16 13:18) fondaparinux [From Arixtra] Allergy (Verified 05/13/16 13:18) rash Heparin Analogues [Heparin Agents] Allergy (Verified 03/07/16 05:09) rash ondansetron HCl [From Zofran] Allergy (Verified 03/13/15 14:46) Past Medical History - General Information source: Patient - Social History Smoking Status: Current Every Day Smoker Chew tobacco use (# tins/day): No Frequency of alcohol use: None Drug Abuse: None Family History: Arthritis, CAD, DM, Hyperlipidemia, Hypertension, Malignancy, Thyroid Disfunction Patient has suicidal ideation: No Patient has homicidal ideation: No - Past Medical History Cardiac Medical History: Reports: Hx Hypercholesterolemia, Hx Pulmonary Embolism - History of same. Denies: Hx Congestive Heart Failure, Hx DVT, Hx Heart Attack, Hx Hypertension Pulmonary Medical History: Reports: Hx Asthma, Hx Pneumonia Neurological Medical History: Reports: Hx Seizures - DUE RITALIN Endocrine Medical History: Reports: Hx Diabetes Mellitus Type 1, Hx Hypothyroidism Renal/ Medical History: Reports: Hx Ovarian Cysts. Denies: Hx Peritoneal Dialysis GI Medical History: Reports: Hx Gastroesophageal Reflux Disease. Denies: Hx Cirrhosis, Hx Hepatitis Musculoskeltal Medical History: Denies Hx Arthritis, Reports Hx Musculoskeletal Trauma - foot fracture Skin Medical History: Denies Hx Eczema, Denies Hx Psoriasis Psychiatric Medical History: Reports: Hx Bipolar Disorder, Hx Depression, Hx Schizophrenia Traumatic Medical History: Reports: Hx Fractures - left foot Infectious Medical History: Denies: Hx Hepatitis Past Surgical History: Reports: Hx Dilation and Curettage, Hx Oral Surgery - wisdom tooth, Other - D&C. Multiple dental extractions. - Immunizations Immunizations up to date: Yes Hx Diphtheria, Pertussis, Tetanus Vaccination: Yes Hx Pneumococcal Vaccination: 04/16/08 <NADER SAMSON - Last Filed: 05/13/16 14:12> Review of Systems - Review of Systems Constitutional: See HPI, Other - Hypoglycemia EENT: No symptoms reported Cardiovascular: No symptoms reported Respiratory: No symptoms reported Gastrointestinal: No symptoms reported Genitourinary: See HPI, Other - Cloudy urine with odor x 1 week Female Genitourinary: No symptoms reported Musculoskeletal: No symptoms reported Skin: No symptoms reported Hematologic/Lymphatic: No symptoms reported Neurological/Psychological: No symptoms reported -: Yes All other systems reviewed and negative <NADER SAMSON - Last Filed: 05/13/16 14:12> Physical Exam - Vital signs Interpretation: Normal - General General appearance: Appears well, Alert - HEENT Head: Normocephalic, Atraumatic Eyes: Normal Pupils: PERRL - Respiratory Respiratory status: No respiratory distress Chest status: Nontender Breath sounds: Normal Chest palpation: Normal - Cardiovascular Rhythm: Regular Heart sounds: Normal auscultation Murmur: No - Abdominal Inspection: Normal Tenderness: Nontender - Back Back: Normal, Nontender - Extremities General upper extremity: Normal inspection, Nontender General lower extremity: Normal inspection, Nontender - Neurological Neuro grossly intact: Yes Cognition: Normal Orientation: AAOx4 Michael Coma Scale Eye Opening: Spontaneous [place] Coma Scale Verbal: Oriented Michael Coma Scale Motor: Obeys Commands [place] Coma Scale Total: 15 Speech: Normal Motor strength normal: LUE, RUE, LLE, RLE Sensory: Normal - Psychological Associated symptoms: Normal mood, Other - Infantile acting - Skin Skin Temperature: Warm Skin Moisture: Dry Skin Color: Normal <NADER SAMSON - Last Filed: 05/13/16 14:12> Course <NADER SAMSON - Last Filed: 05/13/16 14:12> - Laboratory Result Diagrams: 05/13/16 14:05 05/13/16 14:05 - EKG Interpretation by Me EKG shows normal: Sinus rhythm, [place], Intervals, QRS Complexes, ST-T Waves Rate: Normal - 97 Rhythm: NSR When compared to previous EKG there are: No significant change <DIA CARLTON - Last Filed: 05/13/16 16:02> - Re-evaluation Re-evalutation: 05/13/16 15:57 The patient has received almost 2 L of fluid, 1 eos liters being D5 normal saline due to her blood sugar being a little low. She has not urinated yet. She wants to sign out AMA at this time for unknown reasons. At this time she mentions that she is taking antibiotics for her urine infection. She is sitting up, feels well, blood pressure is fine. I told her that we could not force her to stay to continue the evaluation. (DIA CARLTON) - Vital Signs Vital signs: Temp Pulse Resp BP Pulse Ox 97.6 F 106 H 112/81 95 05/13/16 13:17 05/13/16 13:17 05/13/16 15:00 05/13/16 15:01 - Laboratory Laboratory results interpreted by me: 05/13/16 14:05 BUN 27 H Creatinine 1.27 H Est GFR (Non-Af Amer) 49 L Glucose 62 L AST 39 H ALT 57 H Discharge <NADER SAMSON - Last Filed: 05/13/16 14:12> <DIA CARLTON - Last Filed: 05/13/16 16:02> - Discharge Clinical Impression: Hypoglycemia, Leaving AMA Hypotension Qualifiers: Hypotension type: unspecified hypotension type Qualified Code(s): I95.9 - Hypotension, unspecified Condition: Stable Disposition: AGAINST MEDICAL ADVICE Additional Instructions: You have elected to sign out AGAINST MEDICAL ADVICE before your workup is completed. You should check your sugar frequently. You should drink plenty of fluids. You should follow-up with your doctor tomorrow for recheck. RETURN TO THE EMERGENCY ROOM IF ANY NEW OR WORSENING SYMPTOMS. Scribe Documentation - Scribe Written by Scribe:: Nader Samson 05/13/2016 1341 acting as scribe for :: Nisreen <NADER SAMSON - Last Filed: 05/13/16 14:12>
[2016-05-13 14:23] LABS: ABSOLUTE BASOPHILS # (AUTO) 0.1 10^3/uL (0.0-0.2); ABSOLUTE EOSINOPHILS # (AUTO) 0.3 10^3/uL (0.0-0.6); ABSOLUTE LYMPHOCYTES (AUTO) 3.1 10^3/uL (0.5-4.7); ABSOLUTE MONOCYTES (AUTO) 0.4 10^3/uL (0.1-1.4); ABSOLUTE NEUT (AUTO) 4.4 10^3/uL (1.7-8.2); BASOPHILS % (AUTO) 0.8 % (0-2); EOSINOPHILS % (AUTO) 3.4 % (0-6); HEMATOCRIT 40.5 % (36.0-47.0); HGB HCT DIFFERENCE 1.5; LYMPHOCYTES % (AUTO) 37.5 % (13-45); MEAN CORPUSCULAR HEMOGLOBIN 32.7 pg (27.0-33.4); MEAN CORPUSCULAR HGB CONC 34.5 g/dL (32.0-36.0); MEAN CORPUSCULAR VOLUME 95 fl (80-97); RED BLOOD COUNT 4.27 10^6/uL (3.72-5.28); RED CELL DISTRIBUTION WIDTH 13.9 % (11.5-14.0); SEGMENTED NEUTROPHILS % (AUTO) 53.3 % (42-78); WHITE BLOOD COUNT 8.2 10^3/uL (4.0-10.5)
[2016-05-13 14:25] LABS: VENOUS BLOOD BASE EXCESS 1.8 mmol/L; VENOUS BLOOD HCO3 29.2 mmol/L (20-32); VENOUS BLOOD PCO2 56.9 mmHg (35-63); VENOUS BLOOD PH 7.33 (7.30-7.42)
[2016-05-13 14:45] LABS: ALANINE AMINOTRANSFERASE 57 U/L (9-52); ALBUMIN 4.1 g/dL (3.5-5.0); ALKALINE PHOSPHATASE 81 U/L (38-126); ANION GAP 12 (5-19); ASPARTATE AMINO TRANSFERASE 39 U/L (14-36); BILIRUBIN,DIRECT 0.2 mg/dL (0.0-0.4); BILIRUBIN,TOTAL 0.6 mg/dL (0.2-1.3); BLOOD UREA NITROGEN 27 mg/dL (7-20); CALCIUM 9.8 mg/dL (8.4-10.2); CARBON DIOXIDE 29 mmol/L (22-30); CHLORIDE 102 mmol/L (98-107); CREATININE RESULT 1.27 mg/dL (0.52-1.25); GLUCOSE 62 mg/dL (75-110); POTASSIUM 4.8 mmol/L (3.6-5.0); SODIUM 142.7 mmol/L (137-145); TOTAL PROTEIN 7.7 g/dL (6.3-8.2)
[2016-05-13] MEDS ORDERED: DEXTROSE 5%-NORMAL SALINE 1,000 ML IV ONE (14:52)
[2016-05-13 15:31] VITALS: BP 112/81
--- NOTE | 2016-05-13 19:07 | EKG REPORT ---
SEVERITY:- NORMAL ECG - SINUS RHYTHM : Confirmed by: Eleuterio Stratton MD 13-May-2016 19:06:36
== END 2016-05-13 16:13 | disposition left against medical advice (07) ==
LOC: ER 13:05
DX: E10.649 Type 1 diabetes mellitus with hypoglycemia without coma (principal); I95.9 Hypotension, unspecified; N39.0 Urinary tract infection, site not specified; F17.200 Nicotine dependence, unspecified, uncomplicated; J45.909 Unspecified asthma, uncomplicated; Z88.0 Allergy status to penicillin; Z88.8 Allergy status to other drugs, medicaments and biological substances; Z88.2 Allergy status to sulfonamides; Z86.711 Personal history of pulmonary embolism; Z53.20 Procedure and treatment not carried out because of patient's decision for unspecified reasons
CPT/HCPCS: 93005; 99285; 96365; 36415; 87040; 82962; 84703; 85025; 85610; 80053; 82803; 83605; 73630; 93010; J7030

== ENCOUNTER → 2016-05-13 | Outpatient (CLI) | payer MEDICAID | LOC: OD 12:06 | DX: S92.301A Fracture of unspecified metatarsal bone(s), right foot, initial encounter for closed fracture (principal); X58.XXXA Exposure to other specified factors, initial encounter ==

== ENCOUNTER → 2016-07-02 | Outpatient (CLI) | payer MEDICAID ==
[2016-07-02 13:33] LABS: ABSOLUTE EOSINOPHILS # (AUTO) 0.1 10^3/uL (0.0-0.6); ABSOLUTE LYMPHOCYTES (AUTO) 1.8 10^3/uL (0.5-4.7); ABSOLUTE MONOCYTES (AUTO) 0.3 10^3/uL (0.1-1.4); ABSOLUTE NEUT (AUTO) 3.4 10^3/uL (1.7-8.2); BASOPHILS % (AUTO) 0.6 % (0-2); EOSINOPHILS % (AUTO) 1.8 % (0-6); HEMATOCRIT 38.6 % (36.0-47.0); HEMOGLOBIN 13.1 g/dL (12.0-15.5); HGB HCT DIFFERENCE 0.7; LYMPHOCYTES % (AUTO) 32.5 % (13-45); MEAN CORPUSCULAR HEMOGLOBIN 31.5 pg (27.0-33.4); MEAN CORPUSCULAR HGB CONC 33.9 g/dL (32.0-36.0); MEAN CORPUSCULAR VOLUME 93 fl (80-97); MONOCYTES % (AUTO) 5.3 % (3-13); RED BLOOD COUNT 4.16 10^6/uL (3.72-5.28); RED CELL DISTRIBUTION WIDTH 12.9 % (11.5-14.0); SEGMENTED NEUTROPHILS % (AUTO) 59.8 % (42-78); WHITE BLOOD COUNT 5.7 10^3/uL (4.0-10.5)
[2016-07-02 13:51] LABS: ALANINE AMINOTRANSFERASE 25 U/L (9-52); ALKALINE PHOSPHATASE 79 U/L (38-126); ANION GAP 14 (5-19); ASPARTATE AMINO TRANSFERASE 13 U/L (14-36); BILIRUBIN,DIRECT 0.5 mg/dL (0.0-0.4); BILIRUBIN,TOTAL 0.6 mg/dL (0.2-1.3); BLOOD UREA NITROGEN 14 mg/dL (7-20); CALCIUM 9.7 mg/dL (8.4-10.2); CARBON DIOXIDE 27 mmol/L (22-30); CHLORIDE 100 mmol/L (98-107); CREATININE RESULT 1.04 mg/dL (0.52-1.25); GLUCOSE 297 mg/dL (75-110); POTASSIUM 4.6 mmol/L (3.6-5.0); SODIUM 141.2 mmol/L (137-145); TOTAL PROTEIN 7.6 g/dL (6.3-8.2)
[2016-07-02 14:37] LABS: FREE T3 2.8 pg/mL (2.77-5.27)
== END ==
LOC: OD 12:28
PROVIDERS: ATTEND Student in an Organized Health Care Education/Training Program
DX: E03.9 Hypothyroidism, unspecified (principal); E78.00 Pure hypercholesterolemia, unspecified; F25.8 Other schizoaffective disorders; K59.04 Chronic idiopathic constipation; K59.00 Constipation, unspecified
CPT/HCPCS: 36415; 80053; 84439; 84443; 84481; 85025

== ENCOUNTER 2016-07-04 13:07 | Emergency (ER) | payer MEDICAID ==
[2016-07-04] MEDS ORDERED: IBUPROFEN 800 MG TABLET PO ONE (13:55)
--- NOTE | 2016-07-04 13:58 | ER Document Report ---
ED Extremity Problem, Lower - General Chief Complaint: Foot Pain Stated Complaint: RIGHT FOOT PAIN Time Seen by Provider: 07/04/16 13:46 Mode of Arrival: Ambulatory Information source: Patient Notes: 30-year-old female presents to ED for complain in her right foot. She states she injured the area in the end of April and the pain has continued since then. States she had the x-ray at that time and that did not show a break but she thinks it needs to be re-x-rayed as evidenced continuing to her. There is no redness swelling or ecchymosis noted at this time but she does have tenderness to touch distal metatarsal almost all of her toes. TRAVEL OUTSIDE OF THE [place] IN LAST 30 DAYS: No - HPI Patient complains to provider of: Injury - In April, Pain. No: Swelling Location: Foot, 2nd Toe, 3rd Toe, 4th Toe, 5th Toe Occurred: Other - April Where: Home Onset/Duration: Persistent Quality of pain: Achy, Throbbing Severity: Moderate Pain Level: 4 Recent injury: No - Injured it on May 13 Associated symptoms: Painful ambulation Exacerbated by: Movement, Walking Relieved by: Elevation, Ice - Related Data Allergies/Adverse Reactions: amoxicillin trihydrate [From Augmentin] Allergy (Unknown, Verified 05/13/16 13: 18) methylphenidate HCl [From Ritalin] Allergy (Unknown, Verified 05/13/16 13:18) seizure Penicillins Allergy (Unknown, Verified 05/13/16 13:18) Potassium Clavulanate * [From Augmentin] Allergy (Unknown, Verified 05/13/16 13: 18) Sulfa (Sulfonamide Antibiotics) Allergy (Unknown, Verified 05/13/16 13:18) rash amoxicillin [Amoxicillin] Allergy (Verified 05/13/16 13:18) buspirone HCl [From BuSpar] Allergy (Verified 05/13/16 13:18) Psychosis enoxaparin sodium [From Lovenox] Allergy (Verified 05/13/16 13:18) rash Estrogens Allergy (Verified 05/13/16 13:18) fondaparinux [From Arixtra] Allergy (Verified 05/13/16 13:18) rash Heparin Analogues [Heparin Agents] Allergy (Verified 03/07/16 05:09) rash ondansetron HCl [From Zofran] Allergy (Verified 03/13/15 14:46) Past Medical History - General Information source: Patient - Social History Smoking Status: Current Every Day Smoker Cigarette use (# per day): Yes Chew tobacco use (# tins/day): No Smoking Education Provided: Yes Frequency of alcohol use: None Drug Abuse: None Lives with: Family Family History: Arthritis, CAD, DM, Hyperlipidemia, Hypertension, Malignancy, Thyroid Disfunction - Past Medical History Cardiac Medical History: Reports: Hx Hypercholesterolemia, Hx Pulmonary Embolism - History of same. Pulmonary Medical History: Reports: Hx Asthma, Hx Pneumonia EENT Medical History: Reports: None Neurological Medical History: Reports: Hx Seizures - DUE RITALIN Endocrine Medical History: Reports: Hx Diabetes Mellitus Type 1, Hx Hypothyroidism Renal/ Medical History: Reports: Hx Ovarian Cysts Malignancy Medical History: Reports: None GI Medical History: Reports: Hx Gastroesophageal Reflux Disease Musculoskeltal Medical History: Reports Hx Musculoskeletal Trauma - foot fracture Skin Medical History: Reports None Psychiatric Medical History: Reports: Hx Bipolar Disorder, Hx Depression, Hx Schizophrenia Traumatic Medical History: Reports: Hx Fractures - left foot Infectious Medical History: Reports: None Past Surgical History: Reports: Hx Dilation and Curettage, Hx Oral Surgery - wisdom tooth, Other - D&C. Multiple dental extractions. - Immunizations Immunizations up to date: Yes Hx Diphtheria, Pertussis, Tetanus Vaccination: Yes Hx Pneumococcal Vaccination: 04/16/08 Review of Systems - Review of Systems Constitutional: No symptoms reported EENT: No symptoms reported Cardiovascular: No symptoms reported Respiratory: No symptoms reported Gastrointestinal: No symptoms reported Genitourinary: No symptoms reported Female Genitourinary: No symptoms reported Musculoskeletal: Other - Right foot pain Skin: No symptoms reported Hematologic/Lymphatic: No symptoms reported Neurological/Psychological: No symptoms reported -: Yes All other systems reviewed and negative Physical Exam - Vital signs Vitals: Temp Pulse Resp BP Pulse Ox 98.7 F 115 H 19 108/75 98 07/04/16 13:12 07/04/16 13:12 07/04/16 13:12 07/04/16 13:12 07/04/16 13:12 Interpretation: Normal - General General appearance: Appears well, Alert - HEENT Head: Normocephalic, Atraumatic Eyes: Normal Pupils: PERRL - Respiratory Respiratory status: No respiratory distress Chest status: Nontender Breath sounds: Normal Chest palpation: Normal - Cardiovascular Rhythm: Regular Heart sounds: Normal auscultation Murmur: No - Abdominal Inspection: Normal Distension: No distension Bowel sounds: Normal Tenderness: Nontender Organomegaly: No organomegaly - Back Back: Normal, Nontender - Extremities General upper extremity: Normal inspection, Nontender, Normal color, Normal ROM , Normal temperature General lower extremity: Normal inspection, Normal color, Normal ROM, Normal temperature, Normal weight bearing. No: Donna's sign Foot: Tender, Metatarsal compress. pain, No evidence of FB. No: Normal, Nontender, Abrasion, Deformity, Edema, Ecchymosis, Instability, Laceration, Nail injury, Navicular tenderness, Puncture wound, Unable to bear weight, Tender 5th metatarsal, Other - Neurological Neuro grossly intact: Yes Cognition: Normal Orientation: AAOx4 [place] Coma Scale Eye Opening: Spontaneous Michael Coma Scale Verbal: Oriented [place] Coma Scale Motor: Obeys Commands Michael Coma Scale Total: 15 Speech: Normal Motor strength normal: LUE, RUE, LLE, RLE Sensory: Normal - Psychological Associated symptoms: Normal affect, Normal mood - Skin Skin Temperature: Warm Skin Moisture: Dry Skin Color: Normal Course - Re-evaluation Re-evalutation: 07/04/16 18:43 Discussed x-rays with patient written report given to patient patient instructed on use of ibuprofen Tylenol elevation and ice for her pain. - Vital Signs Vital signs: Temp Pulse Resp BP Pulse Ox 98.7 F 106 H 18 150/100 H 97 07/04/16 13:12 07/04/16 16:13 07/04/16 16:13 07/04/16 16:13 07/04/16 16:13 - Diagnostic Test Radiology reviewed: Image reviewed, Reports reviewed Discharge - Discharge Clinical Impression: Pain in right foot Condition: Stable Disposition: HOME, SELF-CARE Additional Instructions: You were seen today for complaint of pain in the right foot just behind the toes. You state this is from a previous injury with no new injuries at this time. Your x-rays are negative no acute injuries noted. You can use Tylenol or Motrin for the discomfort. Elevation and ice will sometimes help with discomfort in your feet. Please follow-up with the [facility] functional analyst if the pain continues I have given you a name of a [employer] functional analyst or you can find one of your own choosing Forms: Smoking Cessation Education Referrals: LION LOPEZ, [Primary Care Provider] - Follow up as needed SRUTHI CLARK, OMERM [ACTIVE STAFF] - Follow up as needed
[2016-07-04 16:23] VITALS: BP 150/100
== END 2016-07-04 16:27 | disposition home or self-care (01) ==
LOC: ER 13:07
DX: M79.671 Pain in right foot (principal); E10.9 Type 1 diabetes mellitus without complications; J45.909 Unspecified asthma, uncomplicated; F17.210 Nicotine dependence, cigarettes, uncomplicated; Z88.0 Allergy status to penicillin; Z88.2 Allergy status to sulfonamides; Z88.8 Allergy status to other drugs, medicaments and biological substances; Z86.711 Personal history of pulmonary embolism
CPT/HCPCS: 99283; 73630; J3490

== ENCOUNTER 2016-07-07 14:41 | Observation (INO) | payer MEDICAID ==
[2016-07-07] MEDS ORDERED: NORMAL SALINE 1000 ML 1,000 ML IV ONE (18:45)
[2016-07-07] MEDS ORDERED: NORMAL SALINE 1000 ML 1,000 ML IV PRN (18:45)
[2016-07-07] MEDS ORDERED: CEFTRIAXONE INJ 1000 MG VIAL ONE (21:39)
[2016-07-08] MEDS ORDERED: NORMAL SALINE 1000 ML 1,000 ML IV PRN (01:50)
[2016-07-08] MEDS ORDERED: IPRATROPIUM/ALBUTEROL 0.5-2.5 MG/3 ML AMPUL NEB PRN (01:50)
[2016-07-08] MEDS ORDERED: ACETAMINOPHEN 325 MG TABLET PO PRN (01:50)
[2016-07-08] MEDS ORDERED: GLUCAGON,HUMAN RECOMB 1 MG INJ IM PRN (01:52)
[2016-07-08] MEDS ORDERED: INSULIN LISPRO 100 UNIT/ML 3 ML VIAL SUBCUT PRN (01:52)
[2016-07-08] MEDS ORDERED: DEXTROSE 50%-WATER 25 GM/50 ML DISP.SYRIN IV PRN ×2 (01:52)
[2016-07-08] MEDS ORDERED: DEXTROSE 40% GEL 15 GM TUBE PO PRN ×2 (01:52)
--- NOTE | 2016-07-08 02:21 | PDOC H&P ---
History of Present Illness Admission Date/PCP: 07/08/16 01:40 PCP Uncertain Patient complains of: ams, elev blood sugar History of Present Illness: DADA SWEET is a 30 year old female, with underlying type 1 diabetes mellitus, bipolar disorder, and hypothyroidism, well-known to the hospitalist service for multiple admissions in the past for diabetic ketoacidosis, with history of chronic noncompliance of medications and diet, and history of leaving hospital AGAINST MEDICAL ADVICE on multiple occasions, who presents to the emergency room for evaluation of above complaints. Patient has been discussed with emergency room physician who evaluated the patient. Patient herself is oriented to year and the fact that she is in the hospital. When I asked her why she was here, she stated "my girlfriend said I was not acting right." According to the emergency room physician, blood sugar was noted to be approximately 500 at home. Patient took insulin and Klonopin along with trazodone. Was noted to be acting in a somewhat altered fashion. Friend who was with patient earlier reportedly stated that "she is this way every day" after taking her meds. Initial plans by the emergency room physician were to send the patient home, with instructions to stop taking her Klonopin until she sees her primary care provider. However, upon his reassessment of the patient and her altered mental status, combined with elevated blood sugar and underlying urinary tract infection, he decided to contact hospitalist service for admission. Patient denies pain, nausea vomiting, or diarrhea or dysuria. Patient at first reluctant to come into the hospital, but she remains somewhat altered, with slight slurring of speech, acting as if she might be "high." Emergency room charge nurse, Coral, who is present in the room, agrees. Certainly did not feel comfortable discharging the patient under the circumstances, and she has agreed to stay. Given her history of leaving the hospital AGAINST MEDICAL ADVICE on multiple occasions, however, IVC papers were drawn up. Laboratory results are listed in [employer] and are reviewed. X-ray--CT scan of head is pending. Social history/personal habits: . No children. On disability. Half pack of cigarettes per day. No alcohol or illicit drug use. Allergies/adverse reactions are listed in [employer] and are reviewed. Home medications initially autopopulated into [employer] may not accurately reflect patient's true medications, dosages, and/or frequencies. manager technical training to reconcile medications. Unfortunately, patient uncertain of medications/dosages/frequencies. REVIEW OF SYSTEMS: Constitutional: No fever or chills. Eyes: No current vision complaints. ENT: No swallowing problems or complaints. No hearing problems or complaints. Pulmonary: No current complaints. Cardiovascular: No current complaints, including chest pain. Gastrointestinal: No current complaints, including nausea or vomiting. Skin: No current complaints, including rashes. Hematologic:Easy bruising. Neurologic: See history and present illness. Musculoskeletal: No current complaints, including painful joints. Psychiatric:Anxiety depression; denies suicidal or homicidal ideation. Endocrine: No current complaints, including polyuria. Genitourinary: No current complaints, including dysuria. PHYSICAL EXAMINATION: Neither height nor weight are recorded on the chart. Temperature not recorded on the chart. Skin feels normothermic. Blood pressure 113/86. Pulse 93 and regular. 94% saturation on room air. Respirations are 22 and unlabored. Female emergency room charge nurse, Coral, is present. Somewhat overweight otherwise well-nourished well-developed female appearing approximately her stated age. Somewhat chronically ill in appearance. Slightly fatigued. Slightly somnolent, but is cooperative. Mildly anxious, without agitation. Mental status seems slightly altered. Very mild slurring of speech intermittently. Slow to formulate answers to basic questions at times. Skin is warm and dry. No grossly obvious evidence of rash in areas of skin examined. No subcutaneous nodules palpated. ENT: Hearing grossly normal to normal conversation. Tongue midline on protrusion pink and slightly tacky. No huffman sign. Eyes: No scleral icterus. Pupils equal and reactive to light at 4 mm. [place] conjunctivae. No raccoon eyes. Neck is supple and nontender to gentle active range of motion and palpation. Midline trachea. No palpable thyroid nodule mass enlargement or tenderness. Lymphatic: No palpable cervical or clavicular nodes. Neck and lymphatic exams limited by patient body habitus. Psychiatric: At best fair insight into chronic medical issues. See history and present illness.. Lungs: Auscultation reveals clear and equal breath sounds bilaterally. No use of accessory respiratory muscles. Cardiovascular: Heart regular rate and rhythm, without gallop murmur or rub. No carotid or abdominal aortic bruits. No ankle or pedal edema. palpable dorsalis pedis pulses. Abdomen:soft, somewhat obese, nontender with positive bowel sounds. Unable to adequately evaluate abdomen for masses or organomegaly due to body habitus. Extremities: Feet are warm and dry. No calf tenderness to compression. No grossly obvious visual evidence of calf swelling. Gentle manipulation of lower extremities fails to reveal any obvious evidence of injury or instability to knees hips or ankles. Neurologic: Moves all 4 extremities grossly normally. Patellar reflexes absent. Absent Babinski. Light touch is intact at feet. Dorsiflexion and plantarflexion of feet 5 / 5 and symmetric. Past Medical History Cardiac Medical History: Reports: Hyperlipidema, Pulmonary Embolism - History of same. Denies: Congestive Heart Failure, Coronary Artery Disease, DVT, Myocardial Infarction, Hypertension Pulmonary Medical History: Reports: Asthma, Pneumonia Denies: Bronchitis, Chronic Obstructive Pulmonary Disease (COPD) Neurological Medical History: Reports: Seizures - DUE RITALIN Endocrine Medical History: Reports: Diabetes Mellitus Type 1, Hypothyroidism Denies: Diabetes Mellitus Type 2, Hyperthyroidism Renal/ Medical History: Reports: Other - Occasional urinary tract infection. GI Medical History: Reports: Gastroesophageal Reflux Disease Denies: Cirrhosis, Hepatitis Musculoskeltal Medical History: Denies: Arthritis Skin Medical History: Denies: Eczema, Psoriasis Psychiatric Medical History: Reports: Bipolar Disorder, Depression, General Anxiety Disorder, Tobacco Dependency Denies: Alcohol Dependency, Substance Abuse Hematology: Denies: Anemia Past Surgical History Past Surgical History: Reports: Other - D&C. Multiple dental extractions. Social History Information Source: Patient, Emergency Med Personnel, [facility] Records Smoking Status: Current Every Day Smoker Frequency of Alcohol Use: None Hx Recreational Drug Use: No Drugs: None Hx Prescription Drug Abuse: Yes - Advance Directive Resuscitation Status: Full Code Surrogate healthcare decision maker:: Uncertain at this time. Family History Family History: Arthritis, CAD, DM, Hyperlipidemia, Hypertension, Malignancy, Thyroid Disfunction Parental Family History Reviewed: Yes - Arthritis, coronary artery disease, malignancy. Children Family History Reviewed: NA Sibling(s) Family History Reviewed.: Yes - Sister with diabetes mellitus hypothyroidism and bipolar disorder. Medication/Allergy Home Medications: Benztropine Mesylate [Cogentin 1 mg Tablet] 1 mg PO Q12 07/08/16 Clonazepam [Klonopin] 0.5 mg PO BID 07/08/16 Cyclobenzaprine HCl [Flexeril 10 mg Tablet] 10 mg PO QHS 07/08/16 Ferrous Sulfate [Iron] 325 mg PO DAILY 07/08/16 Folic Acid 0.8 mg PO DAILY 07/08/16 Gabapentin [Neurontin 300 mg Capsule] 300 mg PO Q12 07/08/16 Haloperidol 15 mg PO BID 07/08/16 Insulin Aspart [Novolog Flexpen] 0 units SUBCUT .SLIDING SCALE PRN 07/08/16 Insulin Degludec [Tresiba Flextouch U-100] 22 unit SUBCUT QAM 07/08/16 Levothyroxine Sodium [Synthroid 0.15 mg Tablet] 0.15 mg PO DAILY 07/08/16 Omeprazole 40 mg PO BID 07/08/16 Trazodone HCl [Desyrel] 300 mg PO QHS 07/08/16 Zolpidem Tartrate [Ambien 5 mg Tablet] 5 mg PO QHS 07/08/16 Allergies/Adverse Reactions: amoxicillin trihydrate [From Augmentin] Allergy (Unknown, Verified 07/11/16 19: 50) methylphenidate HCl [From Ritalin] Allergy (Unknown, Verified 07/11/16 19:50) seizure Penicillins Allergy (Unknown, Verified 07/11/16 19:50) Potassium Clavulanate * [From Augmentin] Allergy (Unknown, Verified 07/11/16 19: 50) Sulfa (Sulfonamide Antibiotics) Allergy (Unknown, Verified 07/11/16 19:50) rash amoxicillin [Amoxicillin] Allergy (Verified 07/11/16 19:50) buspirone HCl [From BuSpar] Allergy (Verified 07/11/16 19:50) Psychosis enoxaparin sodium [From Lovenox] Allergy (Verified 07/11/16 19:50) rash Estrogens Allergy (Verified 07/11/16 19:50) fondaparinux [From Arixtra] Allergy (Verified 07/11/16 19:50) rash Heparin Analogues [Heparin Agents] Allergy (Verified 07/11/16 19:50) rash ondansetron HCl [From Zofran] Allergy (Verified 07/11/16 19:50) Physical Exam Vital Signs: Temp Pulse Resp BP Pulse Ox 15 114/93 H 95 07/08/16 00:00 07/07/16 22:01 07/08/16 00:00 Assessment & Plan - Diagnosis (1) Acute encephalopathy Is this a current diagnosis for this admission?: YesPlan: Likely at least partly due to side effect of multiple psychoactive drugs she takes. Should clear with time and treatment. I have strongly encouraged patient not to get out of bed without notifying staff to avoid a fall with injury. Knee high SCDs for DVT prophylaxis,; patient is allergic to Lovenox, heparin, and Arixtra. She is young, and likely will be discharged later today. Impression and plans were discussed with patient, who concurs. Time spent in evaluation and management of patient: 62 minutes. (2) Bipolar disorder Qualifiers: Active/Remission status: remission status unspecified Qualified Code (s): F31.9 - Bipolar disorder, unspecified Is this a current diagnosis for this admission?: YesPlan: Resume home medications as appropriate once these have been determined and reviewed. (3) UTI (urinary tract infection) Qualifiers: Urinary tract infection type: site unspecified Is this a current diagnosis for this admission?: YesPlan: Urine culture. Aztreonam. (4) Hypothyroidism Qualifiers: Hypothyroidism type: unspecified Qualified Code(s): E03.9 - Hypothyroidism, unspecified Is this a current diagnosis for this admission?: YesPlan: Resume home medications as appropriate once these have been determined and reviewed. (5) Acute renal failure (ARF) Qualifiers: Acute renal failure type: unspecified Qualified Code(s): N17.9 - Acute kidney failure, unspecified Is this a current diagnosis for this admission?: YesPlan: Suspect due to an element of dehydration. IV fluid. Follow-up chemistry.
[2016-07-08 03:33] LABS: ADD ON TESTING BLD IN LAB ACKNOWLEDGE
[2016-07-08 03:57] LABS: MAGNESIUM 1.9 mg/dL (1.6-2.3)
[2016-07-08 04:07] LABS: URINE BARBITURATES SCREEN NEGATIVE; URINE METHADONE SCREEN NEGATIVE; URINE OPIATES LOW NEGATIVE; URINE PHENCYCLIDINE SCREEN NEGATIVE
[2016-07-08 09:24] LABS: ANION GAP 9 (5-19); BLOOD UREA NITROGEN 20 mg/dL (7-20); CALCIUM 9.4 mg/dL (8.4-10.2); CARBON DIOXIDE 30 mmol/L (22-30); CHLORIDE 103 mmol/L (98-107); CREATININE RESULT 1.14 mg/dL (0.52-1.25); GLUCOSE 84 mg/dL (75-110); POTASSIUM 4.4 mmol/L (3.6-5.0); SODIUM 142.1 mmol/L (137-145)
[2016-07-08] MEDS ORDERED: AZTREONAM 1 GM in DEXTROSE 5%-WATER 50 ML IV SCH (10:00)
[2016-07-08] MEDS ORDERED: DOCUSATE SODIUM 100 MG CAPSULE PO SCH (10:00)
[2016-07-08 10:03] LABS: ABSOLUTE BASOPHILS # (AUTO) 0.1 10^3/uL (0.0-0.2); ABSOLUTE EOSINOPHILS # (AUTO) 0.2 10^3/uL (0.0-0.6); ABSOLUTE LYMPHOCYTES (AUTO) 3.3 10^3/uL (0.5-4.7); ABSOLUTE MONOCYTES (AUTO) 0.5 10^3/uL (0.1-1.4); ABSOLUTE NEUT (AUTO) 3.8 10^3/uL (1.7-8.2); BASOPHILS % (AUTO) 0.9 % (0-2); EOSINOPHILS % (AUTO) 2.1 % (0-6); HEMATOCRIT 37.9 % (36.0-47.0); HEMOGLOBIN 12.7 g/dL (12.0-15.5); HGB HCT DIFFERENCE 0.2; LYMPHOCYTES % (AUTO) 42.2 % (13-45); MEAN CORPUSCULAR HEMOGLOBIN 31.6 pg (27.0-33.4); MEAN CORPUSCULAR HGB CONC 33.4 g/dL (32.0-36.0); MEAN CORPUSCULAR VOLUME 95 fl (80-97); RED BLOOD COUNT 4.01 10^6/uL (3.72-5.28); RED CELL DISTRIBUTION WIDTH 12.8 % (11.5-14.0); SEGMENTED NEUTROPHILS % (AUTO) 48.8 % (42-78); WHITE BLOOD COUNT 7.9 10^3/uL (4.0-10.5)
[2016-07-08 11:31] LABS: CALCIUM 10.3 mg/dL (8.4-10.2); GLUCOSE 111 mg/dL (75-110)
[2016-07-08 11:32] LABS: ALBUMIN 4.1 g/dL (3.5-5.0); ANION GAP 12 (5-19); BLOOD UREA NITROGEN 27 mg/dL (7-20); CARBON DIOXIDE 28 mmol/L (22-30); CHLORIDE 100 mmol/L (98-107); CREATININE RESULT 1.68 mg/dL (0.52-1.25); POTASSIUM 4.4 mmol/L (3.6-5.0); SODIUM 140.4 mmol/L (137-145)
[2016-07-08 11:33] LABS: ALANINE AMINOTRANSFERASE 22 U/L (9-52); ALKALINE PHOSPHATASE 74 U/L (38-126); ASPARTATE AMINO TRANSFERASE 22 U/L (14-36); BILIRUBIN,DIRECT 0.5 mg/dL (0.0-0.4); BILIRUBIN,TOTAL 0.5 mg/dL (0.2-1.3)
[2016-07-08 12:31] VITALS: BP 120/82
[2016-07-08 16:17] LABS: APPEARANCE,URINE CLOUDY; BILIRUBIN,URINE NEGATIVE (NEGATIVE); GLUCOSE, URINE >=500 mg/dL (NEGATIVE); KETONES,URINE NEGATIVE (NEGATIVE); LEUKOCYTE ESTERASE,URINE TRACE (NEGATIVE); NITRITE,URINE NEGATIVE (NEGATIVE); PROTEIN,URINE NEGATIVE (NEGATIVE); URINE SPECIFIC GRAVITY 1.013; UROBILINOGEN,URINE NEGATIVE mg/dL (<2.0)
--- NOTE | 2016-07-09 08:09 | DISCHARGE SUMMARY E ---
Discharge Summary NAME: DADA SWEET : 1985 AGE: 30Y ADMITTED: 07/08/2016 DISCHARGED: 07/08/2016 CODE STATUS: FULL CODE. PRIMARY CARE PROVIDER: Dr. Escalera. PSYCHIATRIC PROVIDER: [facility]. DISCHARGE DIAGNOSES: 1. Hyperglycemia in a patient with type-1 diabetes mellitus. 2. Bipolar disorder. 3. Hypothyroidism. 4. Polypharmacy. 5. Altered mental status most likely secondary to polypharmacy. DISCHARGE MEDICATIONS: 1. Cogentin 1 mg p.o. q.12 h. 2. Klonopin 0.5 mg p.o. b.i.d. p.r.n. 3. Flexeril 10 mg p.o. every hour of sleep. 4. Ferrous sulfate 325 mg p.o. daily. 5. Folic acid 0.8 mg p.o. daily. 6. Neurontin 300 mg p.o. q.12 h. 7. Haldol 15 mg p.o. b.i.d. 8. NovoLog FlexPen before meals and at bedtime sliding scale coverage. 9. Tresiba FlexTouch 22 units subcutaneous a.m. 10. Synthroid 0.125 mg p.o. daily. 11. Omeprazole 40 mg p.o. b.i.d. 12. Desyrel 300 mg p.o. every hour of sleep. 13. Ambien 5 mg p.o. every hour of sleep. DIET: Diabetic. ACTIVITY: Supervised as tolerated. HISTORY OF PRESENT ILLNESS: The patient is a 30-year-old female that is well known to the hospitalist service due to multiple admissions with DKA. The patient presented to the emergency department due to altered mental status as well as elevated blood sugars. When asked why she was here, the patient had stated that her girlfriend said she was not acting right. According to ER notes, the patient's blood sugar was noted to be approximately 500 at home. The patient took insulin and Klonopin along with her trazodone and making the patient act in an altered fashion. The patient's girlfriend who is present with the patient reportedly stated that she acts this way every day when she takes her meds. The initial plan of the emergency room provider was to send the patient home with instructions to stop taking Klonopin until she sees her primary care provider; however, upon reassessment of the patient, continued to be altered. This along with her elevated blood sugar felt the patient needed referral for admission. The patient was highly reluctant to be admitted to the hospital and, therefore, IVC papers were drawn up. HOSPITAL COURSE: The patient was admitted to continuous telemetry unit. The patient was aggressively hydrated and started on her home insulin regimen. The patient's electrolytes were without issue. The patient's toxicology screen was ojeda-negative. The patient's electrolytes were much improved after just hydration and the patient's urine culture did not reveal any growth. The patient remained afebrile and her blood pressure was in a good range. Upon rounding on the patient, she was found to be alert and oriented to person, place, time and situation. The patient denied suicidal or homicidal ideations. The patient does have a followup appointment tomorrow with her psychiatric healthcare provider to which her girlfriend has agreed to accompany the patient to discuss the patient's behaviors on certain medications. As to the patient's credit, she has had numerous admissions in the past for DKA and suicidal ideation; however, these have fallen off drastically for which the patient attributes to her current medication regimen that she states keeps her "stable." The patient once again denies any suicidal or homicidal ideation nor has displayed any of these behaviors when altered. The patient does have family that has agreed to stay with her until her followup appointment tomorrow, and the patient is quite eager for discharge. The patient does not meet criteria for involuntary commitment, as the patient displays no intent to self-harm or to harm others. The patient denies suicidal or homicidal ideations; therefore, IVC will be rescinded and the patient is quite eager for discharge. DIAGNOSTICS: Lab values are as follows: Hematology obtained on 07/07/2016: WBCs are 3.9, hemoglobin 12.7, hematocrit 37.9, and platelet count is 494,000. Chemistry obtained on 07/08/2016: Sodium is 142, potassium 4.4, chloride 103, carbon dioxide 30, BUN 20, creatinine 0.14, glucose 84, calcium 9.4. Toxicology obtained on 07/07/2016 is ojeda-negative. Microbiology: Urine culture obtained 07/08/[address] obtained on 07/08/[address] without contrast. PHYSICAL EXAMINATION: GENERAL: On examination, the patient is a well-developed, well-nourished 30-year-old female who is awake, alert and oriented to person, place, time and situation. She is verbal and conversational, and ambulatory and does not appear to be in any acute distress. VITAL SIGNS: Temperature 97.3, pulse 83, respirations 14, blood pressure 120/82, oxygen saturation is 94% on room air. SKIN: Warm and dry. No rash, not diaphoretic. HEENT: Pupils are equal, round, and reactive to light and accommodation. Conjunctivae is pink. NECK: There is no JVD. CARDIOVASCULAR: Heart is regular. There is no murmur or rub. CHEST: Clear to auscultation symmetrical and unlabored. ABDOMEN: Soft. Nontender, nondistended. BACK: No CVA tenderness or sacral edema. EXTREMITIES: No clubbing, cyanosis or edema. PSYCHIATRIC: Appropriate affect. Pleasant mood. DISCHARGE PLANNIN. The patient is advised to follow up with primary care provider within 1-2 weeks for hospital followup. 2. The patient is to follow up with her psychiatric healthcare provider at [facility] tomorrow as scheduled. Do have agreement of the patient's family who is present at bedside to accompany the patient to this appointment. Time spent on this discharge including assessment and plan, physical examination, patient education, specialty collaboration and family meeting is 60 minutes. DICTATING PHYSICIAN: ADITYA FELIX NP [id number] PHY#: [id number] ID: [id number] JOB#: [id number] ACCT: [id number] cc:ZAC POLO M.D., MICHAEL NP >
== END 2016-07-08 15:35 | disposition home or self-care (01) ==
LOC: ER 14:41 → UNDOADMOB 07-08 01:40 → EH 07-08 01:40 → 5 07-08 05:55
PROVIDERS: ADMIT Family Medicine; ATTEND Family Medicine
DX: E10.65 Type 1 diabetes mellitus with hyperglycemia (principal); F31.9 Bipolar disorder, unspecified; R41.82 Altered mental status, unspecified; E03.9 Hypothyroidism, unspecified; Z79.899 Other long term (current) drug therapy; N39.0 Urinary tract infection, site not specified; N17.9 Acute kidney failure, unspecified; F20.9 Schizophrenia, unspecified; F41.1 Generalized anxiety disorder; F17.210 Nicotine dependence, cigarettes, uncomplicated; Z79.4 Long term (current) use of insulin; Z81.8 Family history of other mental and behavioral disorders; Z83.3 Family history of diabetes mellitus
CPT/HCPCS: 36415 ×2; 87086; 82962 ×2; 83735; 84443; 85025; 81025; 80048; 80053; 81001; 80307; 70450; G0378 ×2; J0696; J3490; 96361; 96365; 99285

== ENCOUNTER 2016-07-11 19:35 | Emergency (ER) | payer MEDICAID ==
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
[2016-07-11 22:49] LABS: ALANINE AMINOTRANSFERASE 27 U/L (9-52); ALBUMIN 3.9 g/dL (3.5-5.0); ALKALINE PHOSPHATASE 68 U/L (38-126); ANION GAP 13 (5-19); ASPARTATE AMINO TRANSFERASE 13 U/L (14-36); BILIRUBIN,DIRECT 0.3 mg/dL (0.0-0.4); BILIRUBIN,TOTAL 0.5 mg/dL (0.2-1.3); BLOOD UREA NITROGEN 21 mg/dL (7-20); CARBON DIOXIDE 27 mmol/L (22-30); CHLORIDE 103 mmol/L (98-107); CREATININE RESULT 1.13 mg/dL (0.52-1.25); GLUCOSE 110 mg/dL (75-110); POTASSIUM 4.2 mmol/L (3.6-5.0); SODIUM 143.2 mmol/L (137-145); TOTAL PROTEIN 7.3 g/dL (6.3-8.2)
[2016-07-11 22:51] LABS: ALCOHOL < 10 mg/dL (NONE DETECTED)
[2016-07-11 23:56] LABS: ABSOLUTE BASOPHILS # (AUTO) 0.1 10^3/uL (0.0-0.2); ABSOLUTE EOSINOPHILS # (AUTO) 0.3 10^3/uL (0.0-0.6); ABSOLUTE MONOCYTES (AUTO) 0.4 10^3/uL (0.1-1.4); ABSOLUTE NEUT (AUTO) 4.7 10^3/uL (1.7-8.2); EOSINOPHILS % (AUTO) 2.9 % (0-6); HEMATOCRIT 36.6 % (36.0-47.0); HEMOGLOBIN 12.3 g/dL (12.0-15.5); HGB HCT DIFFERENCE 0.3; LYMPHOCYTES % (AUTO) 42.1 % (13-45); MEAN CORPUSCULAR HEMOGLOBIN 30.9 pg (27.0-33.4); MEAN CORPUSCULAR HGB CONC 33.5 g/dL (32.0-36.0); MEAN CORPUSCULAR VOLUME 92 fl (80-97); MONOCYTES % (AUTO) 4.4 % (3-13); RED BLOOD COUNT 3.97 10^6/uL (3.72-5.28); RED CELL DISTRIBUTION WIDTH 12.9 % (11.5-14.0); SEGMENTED NEUTROPHILS % (AUTO) 49.6 % (42-78); WHITE BLOOD COUNT 9.4 10^3/uL (4.0-10.5)
[2016-07-12 01:40] LABS: URINE BARBITURATES SCREEN NEGATIVE; URINE METHADONE SCREEN NEGATIVE; URINE OPIATES LOW NEGATIVE; URINE PHENCYCLIDINE SCREEN NEGATIVE
[2016-07-12 01:59] LABS: APPEARANCE,URINE CLOUDY; BILIRUBIN,URINE NEGATIVE (NEGATIVE); GLUCOSE, URINE >=500 mg/dL (NEGATIVE); KETONES,URINE NEGATIVE (NEGATIVE); LEUKOCYTE ESTERASE,URINE LARGE (NEGATIVE); NITRITE,URINE NEGATIVE (NEGATIVE); PROTEIN,URINE 100 mg/dL (NEGATIVE); URINE SPECIFIC GRAVITY 1.006; UROBILINOGEN,URINE NEGATIVE mg/dL (<2.0)
[2016-07-12] MEDS ORDERED: NITROFURANTOIN MONOHYD/M-CRYST 100 MG CAPSULE PO SCH (02:15)
[2016-07-12] MEDS ORDERED: NITROFURANTOIN MONOHYD/M-CRYST 100 MG CAPSULE PO ONE (03:15)
--- NOTE | 2016-07-12 08:54 | EKG REPORT ---
SEVERITY:- NORMAL ECG - SINUS RHYTHM : Confirmed by: Eleuterio Stratton MD 12-Jul-2016 08:53:59
--- NOTE | 2016-07-12 11:39 | ER Document Report ---
Doctor's Note Notes: 07/12/16 11:39 I have evaluated this patient this am and has no c/o at this time. Feels all of their needs are being met and physical exam is normal. Awaiting dispositon per mental health.
[2016-07-12] MEDS ORDERED: INSULIN DETEMIR 100 UNIT/ML 3 ML PEN SUBCUT ONE (12:56)
--- NOTE | 2016-07-12 13:39 | ER Document Report ---
ED Psych Disorder / Suicide - General Mode of Arrival: Ambulatory Information source: Patient, [facility] Records TRAVEL OUTSIDE OF THE [place] IN LAST 30 DAYS: No - HPI Patient complains to provider of: Suicidal ideation - plans to slit her wrist Onset: Just prior to arrival Onset was: Sudden Suicide Risk Factors: Bipolar, Depressed, Prior suicide attempt, Substance abuse , Other mental health dx. - "too much stress", Other - Diabetic Situational problems related to: Significant other Normal mood: Yes - irritable Associated symptoms: Normal affect, Normal mood, Labile, Uncooperative Similar symptoms previously: Yes Recently seen / treated by doctor: Yes - recently dc from [facility] for AMS/DKA <ROBERT CHAVEZ - Last Filed: 07/12/16 13:39> <WILLIAM AYERS - Last Filed: 07/12/16 13:46> - General Chief Complaint: Suicidal Ideation Stated Complaint: SUICIDAL IDEATION Time Seen by Provider: 07/11/16 20:25 - HPI Notes: Patient is a 30 year old female who presented overnight with c/o suicidal ideations. Patient is familiar to this clinician for prior episodes of similar etiology, as well as this Department due to frequent presentation and admissions for DKA related probs. Patient reported upon arrival that she planned to OD on her insulin. Patient this morning states she has a lot of stress right now, and she cannot handle stress. Patient identifies her family and boyfriend, although refuses to provide specifics. She does state her boyfriend "into bad things." Patient states she is managing her diabetes since her discharge a the . Patient states she did not follow up with [facility] to see Rani Box as instructed. Patient denies she was instructed to do so. Reviewed with patient information form her discharge report, which specifies her family has agreed to accompany her to the psychiatric provider to review medications which she may be using incorrectly and resulting in AMS (Klonopin and or Ambien). Patient became upset and stated she needs her Ambien. Patient was unable or unwilling to reports her symptoms requiring Ambien and or Klonopin. Patient otherwise reported on the at discharge that her medication regimen keeps her stable. Patient again refuses to elaborate on factors associated with this change between 07/08 and 07/11. Patient additionally reported homicidal ideations towards a neighbor, who reportedly argued with her friend [employer] UP [employer]PERATOR. Patient states she still "sort of" wants to kill her neighbor and still wants to hurt herself. Patient states she is upset because she is not allowed to hold her niece. Patient states her sister, her gf and baby jordan have all told her she is not allowed to hold her because of her mental instability. Note, patient during this conversation made eye contact, was able to track and remain on topic, etc. Mother, Kalpana Helms : she is concerned the patient's medications are too high or too much. Mother states they have attempted to go with the patient to her provider to address concerns over the need to be on so many medications. Mother states she will present and talk with the patient shortly. Patient's mother, sister, and [id number] presented to discuss patient and concerns. Note, during this conversation, patient presented with "babytalk" and family identified this persona as "Alise." Encouraged patient at this time to stop the babytalk because she was just engaging with this Clinician withing normal limits. Patient was able to resume her baseline disposition. Patient states she does not want to come off her Ambien or her Klonopin. Mother verbalized she agrees that the patient is intentionally presenting in such a manner. Patient is A&O. Mood is irritable with congruent affect. Patient endorses suicidal ideations with plan, and passive homicidal ideations with no plan or means. Patient denied A/V H; delusions not noted. Thought processes were organized. Conversational speech was WNL for this patient, which includes a slight speech impediment. 296.80 (F31.9) Unspecified Bipolar and Related Disorder Patient is psychiatrically cleared and recommended for rescind IVC and discharge to her family. Patient's overall presentation is considered behavioral and intentional. Mother refuted patient's claims that she is suicidal because she cannot hold her niece. Mother states the patient is in fact able to hold and visit with the baby, just not alone in her own home. Mother verbalized she agrees the patient is acting out in regards to the different personas, and that her medications are a factor in her current episode. Mother states she will call and or walk in at [facility]. I consulted with Dr. Armendariz in regards to the care and management of this patient. (ROBERT CHAVEZ) - Related Data Allergies/Adverse Reactions: amoxicillin trihydrate [From Augmentin] Allergy (Unknown, Verified 07/11/16 19: 50) methylphenidate HCl [From Ritalin] Allergy (Unknown, Verified 07/11/16 19:50) seizure Penicillins Allergy (Unknown, Verified 07/11/16 19:50) Potassium Clavulanate * [From Augmentin] Allergy (Unknown, Verified 07/11/16 19: 50) Sulfa (Sulfonamide Antibiotics) Allergy (Unknown, Verified 07/11/16 19:50) rash amoxicillin [Amoxicillin] Allergy (Verified 07/11/16 19:50) buspirone HCl [From BuSpar] Allergy (Verified 07/11/16 19:50) Psychosis enoxaparin sodium [From Lovenox] Allergy (Verified 07/11/16 19:50) rash Estrogens Allergy (Verified 07/11/16 19:50) fondaparinux [From Arixtra] Allergy (Verified 07/11/16 19:50) rash Heparin Analogues [Heparin Agents] Allergy (Verified 07/11/16 19:50) rash ondansetron HCl [From Zofran] Allergy (Verified 07/11/16 19:50) Past Medical History - General Information source: Patient - Social History Smoking Status: Current Every Day Smoker Chew tobacco use (# tins/day): No Smoking Education Provided: Yes Frequency of alcohol use: Occasional Drug Abuse: Marijuana Family History: Arthritis, CAD, DM, Hyperlipidemia, Hypertension, Malignancy, Thyroid Disfunction Patient has suicidal ideation: Yes - pt reports ideations, but denies plan or means Patient has homicidal ideation: Yes - pt reports ideations, but denies plan or means - Past Medical History Cardiac Medical History: Reports: Hx Hypercholesterolemia, Hx Pulmonary Embolism - History of same. Denies: Hx Congestive Heart Failure, Hx Coronary Artery Disease, Hx DVT, Hx Heart Attack, Hx Hypertension Pulmonary Medical History: Reports: Hx Asthma, Hx Pneumonia Denies: Hx Bronchitis, Hx COPD Neurological Medical History: Reports: Hx Seizures - DUE RITALIN Endocrine Medical History: Reports: Hx Diabetes Mellitus Type 1, Hx Hypothyroidism. Denies: Hx Diabetes Mellitus Type 2, Hx Hyperthyroidism Renal/ Medical History: Reports: Hx Ovarian Cysts. Denies: Hx Peritoneal Dialysis GI Medical History: Reports: Hx Gastroesophageal Reflux Disease. Denies: Hx Cirrhosis, Hx Hepatitis Musculoskeltal Medical History: Denies Hx Arthritis, Reports Hx Musculoskeletal Trauma - foot fracture Skin Medical History: Denies Hx Eczema, Denies Hx Psoriasis Psychiatric Medical History: Reports: Hx Bipolar Disorder, Hx Depression, Hx Schizophrenia Traumatic Medical History: Reports: Hx Fractures - left foot Infectious Medical History: Denies: Hx Hepatitis Past Surgical History: Reports: Hx Dilation and Curettage, Hx Oral Surgery - wisdom tooth, Other - D&C. Multiple dental extractions. - Immunizations Immunizations up to date: Yes Hx Diphtheria, Pertussis, Tetanus Vaccination: Yes Hx Pneumococcal Vaccination: 04/16/08 <ROBERT CHAVEZ - Last Filed: 07/12/16 13:39> Course - Laboratory Result Diagrams: 07/11/16 23:40 07/11/16 22:25 <ROBERT CHAVEZ - Last Filed: 07/12/16 13:39> - Laboratory Result Diagrams: 07/11/16 23:40 07/11/16 22:25 <WILLIAM AYERS - Last Filed: 07/12/16 13:46> - Vital Signs Vital signs: Temp Pulse Resp BP Pulse Ox 97.3 F 107 H 16 109/66 97 07/11/16 19:43 07/12/16 13:15 07/12/16 13:15 07/12/16 13:15 07/12/16 13:15 - Laboratory Laboratory results interpreted by la: 07/11/16 07/11/16 07/11/16 20:35 22:14 22:25 BUN 21 H Est GFR (Non-Af Amer) 57 L POC Glucose 65 L 135 H AST 13 L Urine Protein Urine Glucose (UA) Ur Leukocyte Esterase Urine Ascorbic Acid Salicylates < 1.0 L Acetaminophen < 10 L 07/12/16 07/12/16 07/12/16 01:00 06:53 07:40 BUN Est GFR (Non-Af Amer) POC Glucose 50 L 164 H AST Urine Protein 100 H Urine Glucose (UA) >=500 H Ur Leukocyte Esterase LARGE H Urine Ascorbic Acid 40 H Salicylates Acetaminophen 07/12/16 12:40 BUN Est GFR (Non-Af Amer) POC Glucose 247 H AST Urine Protein Urine Glucose (UA) Ur Leukocyte Esterase Urine Ascorbic Acid Salicylates Acetaminophen Discharge <ROBERT CHAVEZ - Last Filed: 07/12/16 13:39> <WILLIAM AYERS E - Last Filed: 07/12/16 13:46> - Discharge Clinical Impression: Suicidal ideation, Homicidal ideation, Behavior concern UTI (urinary tract infection) Qualifiers: Urinary tract infection type: site unspecified Hematuria presence: without hematuria Qualified Code(s): N39.0 - Urinary tract infection, site not specified Condition: Stable Disposition: PSYCH HOSP/UNIT Additional Instructions: Bipolar Disorder Bipolar disorder is also called manic-depressive disorder. Depression alternates with brain hyperactivity called vi. Each phase lasts from several days to a few weeks. We don't know exactly what causes bipolar disorder , but it's treatable. During the "manic phase," you may feel elated and energetic. You may have racing thoughts, rapid speech, increased activity, and grandiose ideas. During this time, you may not realize how poor your judgment is. Inappropriate spending, drug abuse, excessive alcohol use, marriage problems, and irresponsible sexual behavior are common during the manic phase. During the "depressive phase," you might feel depressed, guilty, worthless , fatigued, and unable to concentrate. You might have thoughts of suicide. Good treatments are available for bipolar disorder. [place] is a classic drug for bipolar disorder, and is still often useful. If the manic phase is very mild, an antidepressant alone can be prescribed. If the manic phase is very severe, an antipsychotic medicine (such as Haldol) may be needed. The treatment must be matched to your symptoms, so it's important to work closely with your psychiatric care provider. Contact your physician, the hospital emergency center, crisis line, or your counsellor if you are losing control or having self-destructive thoughts. Please follow up with your provider. Please only take medications as they are prescribed. Your family has verbalized they are concerned regarding the amount of medications you take and the number of AMS episodes. Please allow your family to discuss their concerns with your provider. Prescriptions: Nitrofurantoin/Nitrofuran Mac [Macrobid 100 mg Capsule] 1 tab PO BID #10 capsule Referrals: [facility] [Provider Group] - Follow up as needed
[2016-07-12 15:26] VITALS: BP 108/66
== END 2016-07-12 14:05 ==
LOC: ER 19:35
DX: R45.851 Suicidal ideations (principal); R45.850 Homicidal ideations; N39.0 Urinary tract infection, site not specified; F91.9 Conduct disorder, unspecified; F17.200 Nicotine dependence, unspecified, uncomplicated
CPT/HCPCS: 93005; 99285; 36415; 82962; 80307 ×4; 84703; 85025; 80053; 81001; 93010; J1815; J3490; J8499

== ENCOUNTER 2016-07-25 13:28 | Inpatient (IN) | payer MEDICAID ==
[2016-07-25] MEDS ORDERED: NORMAL SALINE 1000 ML 1,000 ML IV PRN ×3 (14:08→18:29)
--- NOTE | 2016-07-25 14:29 | ER Document Report ---
ED Medical Screen (RME) - General Chief Complaint: Low Blood Pressure Stated Complaint: FALL/CHIN LACERATION Time Seen by Provider: 07/25/16 14:22 Mode of Arrival: Wheelchair Information source: Patient TRAVEL OUTSIDE OF THE [place] IN LAST 30 DAYS: No - HPI Patient complains to provider of: syncope/fell and cut chin Onset: Just prior to arrival - pt with syncopal episode earlier today and fell and hit chin on counter. C/o cut chin. Tet- UTD - Related Data Allergies/Adverse Reactions: amoxicillin trihydrate [From Augmentin] Allergy (Severe, Verified 07/25/16 14:04 ) rash methylphenidate HCl [From Ritalin] Allergy (Severe, Verified 07/25/16 14:04) seizure Penicillins Allergy (Severe, Verified 07/25/16 14:04) rash Potassium Clavulanate * [From Augmentin] Allergy (Severe, Verified 07/25/16 14: 04) rash Sulfa (Sulfonamide Antibiotics) Allergy (Severe, Verified 07/25/16 14:04) rash amoxicillin [Amoxicillin] Allergy (Verified 07/25/16 14:04) Hives buspirone HCl [From BuSpar] Allergy (Verified 07/25/16 14:04) Psychosis enoxaparin sodium [From Lovenox] Allergy (Verified 07/25/16 14:04) rash Estrogens Allergy (Verified 07/25/16 14:04) Hives fondaparinux [From Arixtra] Allergy (Verified 07/25/16 14:04) rash Heparin Analogues [Heparin Agents] Allergy (Verified 07/25/16 14:04) rash ondansetron HCl [From Zofran] Allergy (Verified 07/25/16 14:04) Hives Past Medical History - Social History Chew tobacco use (# tins/day): No Frequency of alcohol use: None Drug Abuse: None - Past Medical History Cardiac Medical History: Reports: Hx Hypercholesterolemia, Hx Pulmonary Embolism - History of same. Denies: Hx Congestive Heart Failure, Hx Coronary Artery Disease, Hx DVT, Hx Heart Attack, Hx Hypertension Pulmonary Medical History: Reports: Hx Asthma, Hx Pneumonia Denies: Hx Bronchitis, Hx COPD Neurological Medical History: Reports: Hx Seizures - DUE RITALIN Endocrine Medical History: Reports: Hx Diabetes Mellitus Type 1, Hx Hypothyroidism. Denies: Hx Diabetes Mellitus Type 2, Hx Hyperthyroidism Renal/ Medical History: Reports: Hx Ovarian Cysts. Denies: Hx Peritoneal Dialysis GI Medical History: Reports: Hx Gastroesophageal Reflux Disease. Denies: Hx Cirrhosis, Hx Hepatitis Musculoskeltal Medical History: Denies Hx Arthritis, Reports Hx Musculoskeletal Trauma - foot fracture Skin Medical History: Denies Hx Eczema, Denies Hx Psoriasis Psychiatric Medical History: Reports: Hx Bipolar Disorder, Hx Depression, Hx Schizophrenia Traumatic Medical History: Reports: Hx Fractures - left foot Infectious Medical History: Denies: Hx Hepatitis Past Surgical History: Reports: Hx Dilation and Curettage, Hx Oral Surgery - wisdom tooth, Other - D&C. Multiple dental extractions. - Immunizations Immunizations up to date: Yes Hx Diphtheria, Pertussis, Tetanus Vaccination: No Physical Exam - Vital signs Vitals: Temp Pulse Resp BP Pulse Ox 98.0 F 130 H 16 82/26 L 95 07/25/16 14:06 07/25/16 14:06 07/25/16 14:06 07/25/16 14:06 07/25/16 14:06 Course - Vital Signs Vital signs: Temp Pulse Resp BP Pulse Ox 98.0 F 130 H 16 80/46 L 95 07/25/16 14:06 07/25/16 14:06 07/25/16 14:06 07/25/16 14:09 07/25/16 14:06
[2016-07-25] MEDS ORDERED: LIDOCAINE 1% INJ-PF (10 MG/ML) 30 ML SDV INJ ONE (15:02)
--- NOTE | 2016-07-25 15:09 | ER Document Report ---
ED General - General Chief Complaint: Low Blood Pressure Stated Complaint: FALL/CHIN LACERATION Time Seen by Provider: 07/25/16 14:22 Mode of Arrival: Wheelchair Information source: Patient Notes: 30-year-old female extensive psychiatric history presents with complaints of low blood pressure and passing out. Patient notes no pain anywhere, denies any previous episodes or symptoms prior to passing out. Patient notes laceration under her chin. Blood pressure was noted to be low on arrival TRAVEL OUTSIDE OF THE [place] IN LAST 30 DAYS: No - HPI Onset: Just prior to arrival Onset/Duration: Sudden Quality of pain: No pain Severity: Mild Pain Level: Denies Associated symptoms: Weakness Exacerbated by: Denies Relieved by: Denies Similar symptoms previously: No Recently seen / treated by doctor: No - Related Data Allergies/Adverse Reactions: amoxicillin trihydrate [From Augmentin] Allergy (Severe, Verified 07/25/16 14:04 ) rash methylphenidate HCl [From Ritalin] Allergy (Severe, Verified 07/25/16 14:04) seizure Penicillins Allergy (Severe, Verified 07/25/16 14:04) rash Potassium Clavulanate * [From Augmentin] Allergy (Severe, Verified 07/25/16 14: 04) rash Sulfa (Sulfonamide Antibiotics) Allergy (Severe, Verified 07/25/16 14:04) rash amoxicillin [Amoxicillin] Allergy (Verified 07/25/16 14:04) Hives buspirone HCl [From BuSpar] Allergy (Verified 07/25/16 14:04) Psychosis enoxaparin sodium [From Lovenox] Allergy (Verified 07/25/16 14:04) rash Estrogens Allergy (Verified 07/25/16 14:04) Hives fondaparinux [From Arixtra] Allergy (Verified 07/25/16 14:04) rash Heparin Analogues [Heparin Agents] Allergy (Verified 07/25/16 14:04) rash ondansetron HCl [From Zofran] Allergy (Verified 07/25/16 14:04) Hives Past Medical History - General Information source: Patient - Social History Smoking Status: Current Every Day Smoker Cigarette use (# per day): Yes Chew tobacco use (# tins/day): No Smoking Education Provided: No Frequency of alcohol use: None Drug Abuse: None Family History: Arthritis, CAD, DM, Hyperlipidemia, Hypertension, Malignancy, Thyroid Disfunction Patient has suicidal ideation: No Patient has homicidal ideation: No - Past Medical History Cardiac Medical History: Reports: Hx Hypercholesterolemia, Hx Pulmonary Embolism - History of same. Denies: Hx Congestive Heart Failure, Hx Coronary Artery Disease, Hx DVT, Hx Heart Attack, Hx Hypertension Pulmonary Medical History: Reports: Hx Asthma, Hx Pneumonia Denies: Hx Bronchitis, Hx COPD Neurological Medical History: Reports: Hx Seizures - DUE RITALIN Endocrine Medical History: Reports: Hx Diabetes Mellitus Type 1, Hx Hypothyroidism. Denies: Hx Diabetes Mellitus Type 2, Hx Hyperthyroidism Renal/ Medical History: Reports: Hx Ovarian Cysts. Denies: Hx Peritoneal Dialysis GI Medical History: Reports: Hx Gastroesophageal Reflux Disease. Denies: Hx Cirrhosis, Hx Hepatitis Musculoskeltal Medical History: Denies Hx Arthritis, Reports Hx Musculoskeletal Trauma - foot fracture Skin Medical History: Denies Hx Eczema, Denies Hx Psoriasis Psychiatric Medical History: Reports: Hx Bipolar Disorder, Hx Depression, Hx Schizophrenia Traumatic Medical History: Reports: Hx Fractures - left foot Infectious Medical History: Denies: Hx Hepatitis Past Surgical History: Reports: Hx Dilation and Curettage, Hx Oral Surgery - wisdom tooth, Other - D&C. Multiple dental extractions. - Immunizations Immunizations up to date: Yes Hx Diphtheria, Pertussis, Tetanus Vaccination: No Hx Pneumococcal Vaccination: 04/16/08 Review of Systems - Review of Systems Notes: REVIEW OF SYSTEMS: CONSTITUTIONAL : Denies fever, chills, or sweats. Denies recent illness. EENT: Denies eye, ear, throat, or mouth pain or symptoms. Denies nasal or sinus congestion or discharge. Denies throat, tongue, or mouth swelling or difficulty swallowing. CARDIOVASCULAR: Denies chest pain. Denies palpitations or racing or irregular heart beat. Denies ankle edema. RESPIRATORY: Denies cough, cold, or chest congestion. Denies shortness of breath, difficulty breathing, or wheezing. GASTROINTESTINAL: Denies abdominal pain or distention. Denies nausea, vomiting , or diarrhea. Denies blood in vomitus, stools, or per rectum. Denies black, tarry stools. Denies constipation. GENITOURINARY: Denies difficulty urinating, painful urination, burning, frequency, blood in urine, or discharge. FEMALE GENITOURINARY: Denies vaginal bleeding, heavy or abnormal periods, irregular periods. Denies vaginal discharge or odor. MUSCULOSKELETAL: Denies back or neck pain or stiffness. Denies joint pain or swelling. SKIN: admit sto laceration udner chin . HEMATOLOGIC : Denies easy bruising or bleeding. LYMPHATIC: Denies swollen, enlarged glands. NEUROLOGICAL: admits to syncope PSYCHIATRIC: Denies anxiety or stress. Denies depression, suicidal ideation, or homicidal ideation. ALL OTHER SYSTEMS REVIEWED AND NEGATIVE. Dictation was performed using [employer] voice recognition software PHYSICAL EXAMINATION: GENERAL: Well-appearing, well-nourished and in no acute distress. HEAD: Atraumatic, normocephalic. EYES: Pupils equal round and reactive to light, extraocular movements intact, conjunctiva are normal. ENT: Nares patent, oropharynx clear without exudates. Moist mucous membranes. NECK: Normal range of motion, supple without lymphadenopathy LUNGS: Breath sounds clear to auscultation bilaterally and equal. No wheezes rales or rhonchi. HEART: Regular rate and rhythm without murmurs ABDOMEN: Soft, nontender, nondistended abdomen. No guarding, no rebound. No masses appreciated. Female : deferred Musculoskeletal: Normal range of motion, no pitting or edema. No cyanosis. NEUROLOGICAL: Cranial nerves grossly intact. Normal speech, normal gait. Normal sensory, motor exams PSYCH: Normal mood, normal affect. SKIN: under chin 4 cm laceration in v shape Physical Exam - Vital signs Vitals: Temp Pulse Resp Pulse Ox 98.0 F 132 H 16 92 07/25/16 14:04 07/25/16 14:04 07/25/16 14:04 07/25/16 14:04 Course - Re-evaluation Re-evalutation: 07/25/16 15:10 Lab work pending patient will be bolused fluids repair of lack will be performed 07/25/16 17:01 Blood pressure has improved, she is still slightly tachycardic, she has not eaten today and her blood sugar was 60 I will theater and continue IV fluids 07/25/16 18:00 pt has renal failure , hypotension, uti 07/25/16 18:58 Has been admitted to the hospitalist service for urosepsis tension acute renal failure - Vital Signs Vital signs: Temp Pulse Resp BP Pulse Ox 98.0 F 139 H 18 86/61 L 95 07/25/16 14:06 07/25/16 14:23 07/25/16 16:00 07/25/16 15:00 07/25/16 16:00 - Laboratory Result Diagrams: 07/25/16 15:30 07/25/16 15:30 Laboratory results interpreted by me: 07/25/16 07/25/16 07/25/16 15:30 15:30 16:39 WBC 11.6 H Creatinine 1.98 H Est GFR ( Amer) 36 L Est GFR (Non-Af Amer) 30 L POC Glucose Calcium 10.8 H Urine Protein 100 H Urine Glucose (UA) >=500 H Urine Blood SMALL H Ur Leukocyte Esterase LARGE H 07/25/16 16:59 WBC Creatinine Est GFR ( Amer) Est GFR (Non-Af Amer) POC Glucose 64 L Calcium Urine Protein Urine Glucose (UA) Urine Blood Ur Leukocyte Esterase Procedures - Laceration/Wound Repair Lower Face Time completed: 17:01 Wound length (cm): 4 Wound's Depth, Shape: Superficial, Flap Laceration pre-procedure: Sterile PPE donned, Sterile drapes applied, Shur- Clens applied Anesthetic type: 1% Lidocaine Volume Anesthetic (mLs): 7 Wound explored: Clean, No foreign body removed Irrigated w/ Saline (mLs): 500 Wound Debrided: Moderate Wound Repaired With: Sutures Suture Size/Type: 4:0, Ethilon Number of Sutures: 3 Layer Closure?: No Post-procedure wound care: Sterile dressing applied Post-procedure NV exam normal: Yes Complications: No Critical Care Note - Critical Care Note Total time excluding time spent on procedures (mins): 33 Comments: 33 minutes of critical care time spent in direct contact evaluating and reevaluating the patient, treating symptoms, reviewing labs and studies and speaking with family and consultants excluding any procedures Discharge - Discharge Clinical Impression: Tachycardia Sepsis Qualifiers: Sepsis type: sepsis due to unspecified organism Qualified Code(s): A41.9 - Sepsis, unspecified organism Hypotension Qualifiers: Hypotension type: unspecified hypotension type Qualified Code(s): I95.9 - Hypotension, unspecified Acute renal failure (ARF) Qualifiers: Acute renal failure type: unspecified Qualified Code(s): N17.9 - Acute kidney failure, unspecified UTI (urinary tract infection) Qualifiers: Urinary tract infection type: site unspecified Hematuria presence: without hematuria Qualified Code(s): N39.0 - Urinary tract infection, site not specified Condition: Fair Disposition: ADMITTED INPATIENT Admitting Provider: Hospitalist Unit Admitted: [facility]
[2016-07-25 17:49] LABS: APPEARANCE,URINE TURBID; BILIRUBIN,URINE NEGATIVE (NEGATIVE); GLUCOSE, URINE >=500 mg/dL (NEGATIVE); KETONES,URINE NEGATIVE (NEGATIVE); LEUKOCYTE ESTERASE,URINE LARGE (NEGATIVE); NITRITE,URINE NEGATIVE (NEGATIVE); PROTEIN,URINE 100 mg/dL (NEGATIVE); URINE SPECIFIC GRAVITY 1.008; UROBILINOGEN,URINE NEGATIVE mg/dL (<2.0)
[2016-07-25 17:52] LABS: ABSOLUTE BASOPHILS # (AUTO) 0.1 10^3/uL (0.0-0.2); ABSOLUTE EOSINOPHILS # (AUTO) 0.2 10^3/uL (0.0-0.6); ABSOLUTE LYMPHOCYTES (AUTO) 2.6 10^3/uL (0.5-4.7); ABSOLUTE MONOCYTES (AUTO) 0.9 10^3/uL (0.1-1.4); ABSOLUTE NEUT (AUTO) 7.9 10^3/uL (1.7-8.2); BASOPHILS % (AUTO) 0.5 % (0-2); EOSINOPHILS % (AUTO) 1.5 % (0-6); HEMATOCRIT 41.8 % (36.0-47.0); HEMOGLOBIN 13.8 g/dL (12.0-15.5); HGB HCT DIFFERENCE -0.4; LYMPHOCYTES % (AUTO) 22.1 % (13-45); MEAN CORPUSCULAR HEMOGLOBIN 30.7 pg (27.0-33.4); MEAN CORPUSCULAR VOLUME 93 fl (80-97); MONOCYTES % (AUTO) 7.8 % (3-13); RED CELL DISTRIBUTION WIDTH 13.3 % (11.5-14.0); SEGMENTED NEUTROPHILS % (AUTO) 68.1 % (42-78); WHITE BLOOD COUNT 11.6 10^3/uL (4.0-10.5)
[2016-07-25 17:53] LABS: ALANINE AMINOTRANSFERASE 18 U/L (9-52); ALBUMIN 3.6 g/dL (3.5-5.0); ALKALINE PHOSPHATASE 73 U/L (38-126); ANION GAP 9 (5-19); ASPARTATE AMINO TRANSFERASE 16 U/L (14-36); BILIRUBIN,DIRECT 0.3 mg/dL (0.0-0.4); BILIRUBIN,TOTAL 0.5 mg/dL (0.2-1.3); BLOOD UREA NITROGEN 17 mg/dL (7-20); CALCIUM 10.8 mg/dL (8.4-10.2); CARBON DIOXIDE 29 mmol/L (22-30); CHLORIDE 102 mmol/L (98-107); CREATININE RESULT 1.98 mg/dL (0.52-1.25); GLUCOSE 95 mg/dL (75-110); POTASSIUM 4.3 mmol/L (3.6-5.0); TOTAL PROTEIN 7.4 g/dL (6.3-8.2)
[2016-07-25] MEDS ORDERED: AZTREONAM INJ 1 GM VIAL IV ONE (18:05)
[2016-07-25] MEDS ORDERED: VANCOMYCIN HCL INJ 1000 MG VIAL IV ONE (18:06)
[2016-07-25] MEDS ORDERED: DEXTROSE 50%-WATER 25 GM/50 ML DISP.SYRIN IV PRN ×2 (18:29)
[2016-07-25] MEDS ORDERED: GLUCAGON,HUMAN RECOMB 1 MG INJ IM PRN (18:29)
[2016-07-25] MEDS ORDERED: DEXTROSE 40% GEL 15 GM TUBE PO PRN ×2 (18:29)
[2016-07-25] MEDS ORDERED: OXYCODONE-ACETAMINOPHEN 5-325 MG TABLET PO PRN (18:34)
[2016-07-25] MEDS ORDERED: ACETAMINOPHEN 325 MG TABLET PO PRN (18:34)
[2016-07-25] MEDS ORDERED: ONDANSETRON HCL INJ/PF 4 MG/2 ML SDV IV PRN (18:34)
--- NOTE | 2016-07-25 18:51 | PDOC H&P ---
History of Present Illness Admission Date/PCP: 07/25/16 18:31 Patient complains of: Fall/chin laceration History of Present Illness: DADA SWEET is a 30 year old female that presented to the emergency department after sustaining a fall resulting in a chin laceration. In the emergency department she was noted to be hypotensive. Further investigation of her hypotension indicated that she was in septic shock based upon elevated white blood count, tachycardia, hypotension, abnormal urinalysis. She was also noted to be in acute renal failure. Patient recently was treated with Macrobid for urinary tract infection. Chin laceration has been sutured with 3 interrupted sutures by emergency department physician. Medications have not been verified. Past Medical History Cardiac Medical History: Reports: Hyperlipidema, Pulmonary Embolism - History of same. Denies: Congestive Heart Failure, Coronary Artery Disease, DVT, Myocardial Infarction, Hypertension Pulmonary Medical History: Reports: Asthma, Pneumonia Denies: Bronchitis, Chronic Obstructive Pulmonary Disease (COPD) Neurological Medical History: Reports: Seizures - DUE RITALIN Endocrine Medical History: Reports: Diabetes Mellitus Type 1, Hypothyroidism Denies: Diabetes Mellitus Type 2, Hyperthyroidism GI Medical History: Reports: Gastroesophageal Reflux Disease Denies: Cirrhosis, Hepatitis Musculoskeltal Medical History: Denies: Arthritis Skin Medical History: Denies: Eczema, Psoriasis Psychiatric Medical History: Reports: Bipolar Disorder, Depression Hematology: Denies: Anemia Past Surgical History Past Surgical History: Reports: Other - D&C. Multiple dental extractions. Social History Information Source: Patient Smoking Status: Current Every Day Smoker Frequency of Alcohol Use: None Hx Recreational Drug Use: Yes Drugs: None Hx Prescription Drug Abuse: Yes - Advance Directive Resuscitation Status: Full Code Family History Family History: Arthritis, CAD, DM, Hyperlipidemia, Hypertension, Malignancy, Thyroid Disfunction Parental Family History Reviewed: Yes Children Family History Reviewed: Yes Sibling(s) Family History Reviewed.: Yes Medication/Allergy Home Medications: Benztropine Mesylate [Cogentin 1 mg Tablet] 1 mg PO BID 07/08/16 Clonazepam [Klonopin] 0.5 mg PO BID 07/08/16 Cyclobenzaprine HCl [Flexeril 10 mg Tablet] 10 mg PO QHS 07/08/16 Ferrous Sulfate [Iron] 325 mg PO DAILY 07/08/16 Folic Acid 0.8 mg PO DAILY 07/08/16 Gabapentin [Neurontin 300 mg Capsule] 300 mg PO BID 07/08/16 Insulin Aspart [Novolog Flexpen] 0 units SUBCUT .SLIDING SCALE PRN 07/08/16 Insulin Degludec [Tresiba Flextouch U-100] 22 unit SUBCUT QAM 07/08/16 Levothyroxine Sodium [Synthroid 0.15 mg Tablet] 0.15 mg PO DAILY 07/08/16 Omeprazole 40 mg PO BID 07/08/16 Trazodone HCl [Desyrel] 300 mg PO QHS 07/08/16 Zolpidem Tartrate [Ambien 5 mg Tablet] 5 mg PO QHS 07/08/16 Nitrofurantoin/Nitrofuran Mac [Macrobid 100 mg Capsule] 1 tab PO BID #10 capsule 07/12/16 Albuterol Sulfate [Ventolin Hfa] 2 puff PO Q6 PRN 07/16/16 Haloperidol [Haldol 5 mg Tablet] 15 mg PO BID 07/16/16 Allergies/Adverse Reactions: amoxicillin trihydrate [From Augmentin] Allergy (Severe, Verified 07/25/16 14:04 ) rash methylphenidate HCl [From Ritalin] Allergy (Severe, Verified 07/25/16 14:04) seizure Penicillins Allergy (Severe, Verified 07/25/16 14:04) rash Potassium Clavulanate * [From Augmentin] Allergy (Severe, Verified 07/25/16 14: 04) rash Sulfa (Sulfonamide Antibiotics) Allergy (Severe, Verified 07/25/16 14:04) rash amoxicillin [Amoxicillin] Allergy (Verified 07/25/16 14:04) Hives buspirone HCl [From BuSpar] Allergy (Verified 07/25/16 14:04) Psychosis enoxaparin sodium [From Lovenox] Allergy (Verified 07/25/16 14:04) rash Estrogens Allergy (Verified 07/25/16 14:04) Hives fondaparinux [From Arixtra] Allergy (Verified 07/25/16 14:04) rash Heparin Analogues [Heparin Agents] Allergy (Verified 07/25/16 14:04) rash ondansetron HCl [From Zofran] Allergy (Verified 07/25/16 14:04) Hives Review of Systems Constitutional: PRESENT: fatigue, fever(s), weakness. ABSENT: chills, headache( s), weight gain, weight loss Eyes: ABSENT: visual disturbances Ears: ABSENT: hearing changes Cardiovascular: ABSENT: chest pain, dyspnea on exertion, edema, orthropnea, palpitations Respiratory: ABSENT: cough, hemoptysis Gastrointestinal: ABSENT: abdominal pain, constipation, diarrhea, hematemesis, hematochezia, nausea, vomiting Genitourinary: ABSENT: dysuria, hematuria Musculoskeletal: ABSENT: joint swelling Integumentary: ABSENT: rash, wounds Neurological: ABSENT: abnormal gait, abnormal speech, confusion, dizziness, focal weakness, syncope Psychiatric: ABSENT: anxiety, depression, homidical ideation, suicidal ideation Endocrine: ABSENT: cold intolerance, heat intolerance, polydipsia, polyuria Hematologic/Lymphatic: ABSENT: easy bleeding, easy bruising Physical Exam Vital Signs: Temp Pulse Resp BP Pulse Ox 98.0 F 139 H 18 86/61 L 95 07/25/16 14:06 07/25/16 14:23 07/25/16 16:00 07/25/16 15:00 07/25/16 16:00 PHYSICAL EXAM: GENERAL: Appears well, no acute distress HEENT: Normocephalic, no scleral icterus, conjunctiva clear, EOEM intact, PERRLA , moist mucous membranes NECK: trachea midline, no thyromegally RESPIRATORY: Clear to auscultation, no wheezes/rhonchi CARDIAC: Regular rate and rhythm, no murmur/cresencio/rub ABDOMEN: Soft, no distension, no tenderness, no guarding, normal bowel sounds, negative Magdaleno sign RECTAL: deferred : deferred EXTREMITIES: No edema, cyanosis, clubbing MUSCULOSKELETAL: No joint swelling or deformity VASCULAR: normal peripheral pulses NEUROLOGIC: Alert, oriented to person/place/time, normal speech, cranial nerves grossly intact, 5/5 strength in all extremities, tactile sensation intact in all extremities SKIN: One and half centimeter linear laceration on chin approximated by 3 interrupted sutures. PSYCHIATRIC: Normal mood, usual affect Results Laboratory Results: Labs- All tests 24 hr 07/25/16 07/25/16 07/25/16 15:30 15:30 16:39 WBC 11.6 H RBC 4.50 Hgb 13.8 Hct 41.8 MCV 93 MCH 30.7 MCHC 33.0 RDW 13.3 Plt Count 307 Seg Neutrophils % 68.1 Lymphocytes % 22.1 Monocytes % 7.8 Eosinophils % 1.5 Basophils % 0.5 Absolute Neutrophils 7.9 Absolute Lymphocytes 2.6 Absolute Monocytes 0.9 Absolute Eosinophils 0.2 Absolute Basophils 0.1 Sodium 140.0 Potassium 4.3 Chloride 102 Carbon Dioxide 29 Anion Gap 9 BUN 17 Creatinine 1.98 H Est GFR ( Amer) 36 L Est GFR (Non-Af Amer) 30 L Glucose 95 POC Glucose Calcium 10.8 H Total Bilirubin 0.5 Direct Bilirubin 0.3 Indirect Bilirubin Not Reportable Neonat Total Bilirubin Not Reportable AST 16 ALT 18 Alkaline Phosphatase 73 Total Protein 7.4 Albumin 3.6 Urine Color YELLOW Urine Appearance TURBID Urine pH 5.0 Ur Specific Odell 1.008 Urine Protein 100 H Urine Glucose (UA) >=500 H Urine Ketones NEGATIVE Urine Blood SMALL H Urine Nitrite NEGATIVE Urine Bilirubin NEGATIVE Urine Urobilinogen NEGATIVE Ur Leukocyte Esterase LARGE H Urine WBC (Auto) >182 Urine RBC (Auto) 157 Urine Bacteria (Auto) TRACE Urine WBC Clumps MANY Urine Yeast (Budding) PRESENT Urine Ascorbic Acid NEGATIVE Urine HCG, Qual NEGATIVE 07/25/16 16:59 WBC RBC Hgb Hct MCV MCH MCHC RDW Plt Count Seg Neutrophils % Lymphocytes % Monocytes % Eosinophils % Basophils % Absolute Neutrophils Absolute Lymphocytes Absolute Monocytes Absolute Eosinophils Absolute Basophils Sodium Potassium Chloride Carbon Dioxide Anion Gap BUN Creatinine Est GFR ( Amer) Est GFR (Non-Af Amer) Glucose POC Glucose 64 L Calcium Total Bilirubin Direct Bilirubin Indirect Bilirubin Neonat Total Bilirubin AST ALT Alkaline Phosphatase Total Protein Albumin Urine Color Urine Appearance Urine pH Ur Specific Odell Urine Protein Urine Glucose (UA) Urine Ketones Urine Blood Urine Nitrite Urine Bilirubin Urine Urobilinogen Ur Leukocyte Esterase Urine WBC (Auto) Urine RBC (Auto) Urine Bacteria (Auto) Urine WBC Clumps Urine Yeast (Budding) Urine Ascorbic Acid Urine HCG, Qual Assessment & Plan - Diagnosis (1) Sepsis Qualifiers: Sepsis type: sepsis due to unspecified organism Qualified Code(s): A41.9 - Sepsis, unspecified organism Is this a current diagnosis for this admission?: YesPlan: Aggressive IV fluids, IV antibiotics. (2) UTI (urinary tract infection) Qualifiers: Urinary tract infection type: site unspecified Hematuria presence: without hematuria Qualified Code(s): N39.0 - Urinary tract infection, site not specified Is this a current diagnosis for this admission?: YesPlan: IV aztreonam secondary to penicillin allergy. Urine culture and blood cultures. Failed outpatient Macrobid. (3) Chin laceration Is this a current diagnosis for this admission?: YesPlan: Sutured in the emergency department on 07/25/2016. Suture removal required on 12/2016. (4) Acute renal failure (ARF) Qualifiers: Acute renal failure type: unspecified Qualified Code(s): N17.9 - Acute kidney failure, unspecified Is this a current diagnosis for this admission?: YesPlan: Aggressive IV fluids. Repeat labs in the morning. (5) Bipolar disorder Qualifiers: Active/Remission status: remission status unspecified Qualified Code (s): F31.9 - Bipolar disorder, unspecified Is this a current diagnosis for this admission?: YesPlan: Continue home medications. (6) Hypothyroidism Qualifiers: Hypothyroidism type: unspecified Qualified Code(s): E03.9 - Hypothyroidism, unspecified Is this a current diagnosis for this admission?: YesPlan: Synthroid (7) Tobacco dependency Is this a current diagnosis for this admission?: Yes (8) Type 1 diabetes mellitus Is this a current diagnosis for this admission?: YesPlan: Continue outpatient dose of Tresiba 22units daily. Sliding scale insulin coverage. Check hemoglobin A1c. - Time Time Spent: Greater than 70 Minutes
[2016-07-25 19:20] LABS: VENOUS BLOOD HCO3 27.7 mmol/L (20-32); VENOUS BLOOD PCO2 53.1 mmHg (35-63); VENOUS BLOOD PH 7.34 (7.30-7.42)
[2016-07-25] MEDS: GABAPENTIN 300 MG CAPSULE PO SCH (22:27)
[2016-07-25] MEDS: CLONAZEPAM 1 MG TABLET PO SCH (22:28)
[2016-07-25] MEDS: TRAZODONE HCL 50 MG TABLET PO SCH (22:28)
[2016-07-25] MEDS: ZOLPIDEM TARTRATE 5 MG TABLET PO SCH (22:28)
[2016-07-25] MEDS ORDERED: ZIPRASIDONE HCL 40 MG CAPSULE PO ONE (22:38)
[2016-07-25] MEDS: ZIPRASIDONE HCL 40 MG CAPSULE PO SCH (22:42)
[2016-07-26] MEDS ORDERED: AZTREONAM INJ 1 GM VIAL IV PRN (01:00)
[2016-07-26] MEDS: AZTREONAM 1.5 GM in DEXTROSE 5%-WATER 100 ML IV SCH ×4 (04:30→22:45)
[2016-07-26] MEDS: LANSOPRAZOLE 30 MG TAB.RAP.DR PO SCH ×2 (06:14→22:40)
[2016-07-26 06:25] LABS: ANION GAP 13 (5-19); BLOOD UREA NITROGEN 13 mg/dL (7-20); CARBON DIOXIDE 26 mmol/L (22-30); CHLORIDE 105 mmol/L (98-107); CREATININE RESULT 1.17 mg/dL (0.52-1.25); GLUCOSE 60 mg/dL (75-110); POTASSIUM 4.5 mmol/L (3.6-5.0); SODIUM 144.2 mmol/L (137-145)
[2016-07-26 06:40] LABS: ABSOLUTE EOSINOPHILS # (AUTO) 0.2 10^3/uL (0.0-0.6); ABSOLUTE LYMPHOCYTES (AUTO) 2.1 10^3/uL (0.5-4.7); ABSOLUTE MONOCYTES (AUTO) 0.8 10^3/uL (0.1-1.4); ABSOLUTE NEUT (AUTO) 6.5 10^3/uL (1.7-8.2); BASOPHILS % (AUTO) 0.5 % (0-2); EOSINOPHILS % (AUTO) 2.5 % (0-6); HEMATOCRIT 36.6 % (36.0-47.0); HEMOGLOBIN 12.5 g/dL (12.0-15.5); HGB HCT DIFFERENCE 0.9; LYMPHOCYTES % (AUTO) 21.4 % (13-45); MEAN CORPUSCULAR HEMOGLOBIN 31.3 pg (27.0-33.4); MEAN CORPUSCULAR HGB CONC 34.1 g/dL (32.0-36.0); MEAN CORPUSCULAR VOLUME 92 fl (80-97); MONOCYTES % (AUTO) 8.4 % (3-13); RED BLOOD COUNT 3.98 10^6/uL (3.72-5.28); SEGMENTED NEUTROPHILS % (AUTO) 67.2 % (42-78); WHITE BLOOD COUNT 9.6 10^3/uL (4.0-10.5)
[2016-07-26] MEDS ORDERED: INSULIN DEGLUDEC 22 UNIT SUBCUT SCH (08:00)
[2016-07-26] MEDS ORDERED: ENOXAPARIN SODIUM INJ 40 MG/0.4 ML DISP.SYRIN SUBCUT SCH (08:00)
[2016-07-26] MEDS ORDERED: LEVOTHYROXINE SODIUM 0.15 MG TABLET PO SCH (10:00)
[2016-07-26] MEDS: GABAPENTIN 300 MG CAPSULE PO SCH ×2 (10:16→22:41)
[2016-07-26] MEDS: BENZTROPINE MESYLATE 1 MG TABLET PO SCH ×2 (10:18→22:40)
[2016-07-26] MEDS: CLONAZEPAM 1 MG TABLET PO SCH ×2 (10:19→22:41)
[2016-07-26] MEDS: ZIPRASIDONE HCL 40 MG CAPSULE PO SCH ×2 (10:46→22:39)
--- NOTE | 2016-07-26 13:05 | PDOC PROGRESS REPORT ---
Subjective Progress Note for:: 07/26/16 Subjective:: Patient is feeling markedly better today and would like to go home. Patient denies fever, chills, headache, new focal weakness, chest pain, shortness of breath, abdominal pain, nausea, vomiting, diarrhea, constipation. Physical Exam Vital Signs: Temp Pulse Resp BP Pulse Ox 98.0 F 106 H 17 128/84 H 98 07/26/16 12:14 07/26/16 12:14 07/26/16 12:14 07/26/16 12:14 07/26/16 12:14 Intake & Output 07/25/16 07/26/16 07/27/16 06:59 06:59 06:59 Intake Total 945 Output Total 1050 0 Balance -105 0 Weight 66.8 kg GENERAL: No acute distress HEENT: Conjunctiva clear, nonicteric, moist mucous membranes, no JVD, midline trachea RESPIRATORY: Clear to auscultation bilaterally, no wheezes, no rhonchi CARDIAC: Regular rate and rhythm, no murmurs/gallops/rubs ABDOMEN: Soft, nondistended, nontender, positive bowel sounds, no rebound, no guarding EXTREMETIES: No edema, cyanosis, clubbing NEUROLOGIC: Alert, oriented to person/place/time, CN's grossly intact, no focal deficits SKIN: No rash, wounds PSYCH: Normal mood, normal affect Results Laboratory Results: 07/26/16 05:55 07/26/16 05:55 07/25/16 07/25/16 07/26/16 19:07 19:07 05:55 WBC 9.6 RBC 3.98 Hgb 12.5 Hct 36.6 MCV 92 MCH 31.3 MCHC 34.1 RDW 13.0 Plt Count 291 Seg Neutrophils % 67.2 Lymphocytes % 21.4 Monocytes % 8.4 Eosinophils % 2.5 Basophils % 0.5 Absolute Neutrophils 6.5 Absolute Lymphocytes 2.1 Absolute Monocytes 0.8 Absolute Eosinophils 0.2 Absolute Basophils 0.0 VBG pH 7.34 VBG pCO2 53.1 VBG HCO3 27.7 VBG Base Excess 1.0 Sodium Potassium Chloride Carbon Dioxide Anion Gap BUN Creatinine Est GFR ( Amer) Est GFR (Non-Af Amer) Glucose Lactic Acid 1.5 Calcium 07/26/16 05:55 WBC RBC Hgb Hct MCV MCH MCHC RDW Plt Count Seg Neutrophils % Lymphocytes % Monocytes % Eosinophils % Basophils % Absolute Neutrophils Absolute Lymphocytes Absolute Monocytes Absolute Eosinophils Absolute Basophils VBG pH VBG pCO2 VBG HCO3 VBG Base Excess Sodium 144.2 Potassium 4.5 Chloride 105 Carbon Dioxide 26 Anion Gap 13 BUN 13 Creatinine 1.17 Est GFR ( Amer) > 60 Est GFR (Non-Af Amer) 54 L Glucose 60 L Lactic Acid Calcium 10.0 Assessment & Plan - Diagnosis (1) Sepsis Qualifiers: Sepsis type: sepsis due to unspecified organism Qualified Code(s): A41.9 - Sepsis, unspecified organism Is this a current diagnosis for this admission?: YesPlan: Patient is now afebrile with a normal white blood count. Continue to treat urinary tract infection. (2) UTI (urinary tract infection) Qualifiers: Urinary tract infection type: site unspecified Hematuria presence: without hematuria Qualified Code(s): N39.0 - Urinary tract infection, site not specified Is this a current diagnosis for this admission?: YesPlan: Continue IV aztreonam secondary to penicillin allergy. Urine culture and blood cultures pending. Failed outpatient Macrobid. (3) Chin laceration Is this a current diagnosis for this admission?: YesPlan: Sutured in the emergency department on 07/25/2016. Suture removal required on 12/2016. (4) Acute renal failure (ARF) Qualifiers: Acute renal failure type: unspecified Qualified Code(s): N17.9 - Acute kidney failure, unspecified Is this a current diagnosis for this admission?: YesPlan: Resolved. Discontinue IV fluids. (5) Bipolar disorder Qualifiers: Active/Remission status: remission status unspecified Qualified Code (s): F31.9 - Bipolar disorder, unspecified Is this a current diagnosis for this admission?: YesPlan: Continue home medications. (6) Hypothyroidism Qualifiers: Hypothyroidism type: unspecified Qualified Code(s): E03.9 - Hypothyroidism, unspecified Is this a current diagnosis for this admission?: YesPlan: Synthroid (7) Tobacco dependency Is this a current diagnosis for this admission?: Yes (8) Type 1 diabetes mellitus Is this a current diagnosis for this admission?: YesPlan: Continue outpatient dose of Tresiba 22units daily. Sliding scale insulin coverage. Hemoglobin A1c 8.7. - Time Time Spent with patient: 25-34 minutes Anticipated discharge: Home Within: within 24 hours
[2016-07-26] MEDS ORDERED: INSULIN GLARGINE,HUM.REC.ANLOG 300 UNIT/3 ML INSULN.PEN SUBCUT SCH (22:00)
[2016-07-26] MEDS: TRAZODONE HCL 50 MG TABLET PO SCH (22:40)
[2016-07-26] MEDS: INSULIN LISPRO 100 UNIT/ML 3 ML VIAL SUBCUT PRN (22:42)
[2016-07-26] MEDS: ZOLPIDEM TARTRATE 5 MG TABLET PO SCH (23:03)
[2016-07-27 05:06] LABS: ANION GAP 10 (5-19); BLOOD UREA NITROGEN 11 mg/dL (7-20); CALCIUM 9.6 mg/dL (8.4-10.2); CARBON DIOXIDE 27 mmol/L (22-30); CHLORIDE 104 mmol/L (98-107); GLUCOSE 255 mg/dL (75-110); POTASSIUM 4.2 mmol/L (3.6-5.0); SODIUM 140.6 mmol/L (137-145)
[2016-07-27] MEDS ORDERED: LEVOTHYROXINE SODIUM 0.15 MG TABLET PO SCH (06:00)
[2016-07-27 06:14] LABS: ABSOLUTE BASOPHILS # (AUTO) 0.1 10^3/uL (0.0-0.2); ABSOLUTE EOSINOPHILS # (AUTO) 0.3 10^3/uL (0.0-0.6); ABSOLUTE LYMPHOCYTES (AUTO) 2.8 10^3/uL (0.5-4.7); ABSOLUTE MONOCYTES (AUTO) 0.5 10^3/uL (0.1-1.4); ABSOLUTE NEUT (AUTO) 4.1 10^3/uL (1.7-8.2); BASOPHILS % (AUTO) 1.2 % (0-2); EOSINOPHILS % (AUTO) 3.8 % (0-6); HEMATOCRIT 34.1 % (36.0-47.0); HEMOGLOBIN 11.3 g/dL (12.0-15.5); HGB HCT DIFFERENCE -0.2; LYMPHOCYTES % (AUTO) 35.8 % (13-45); MEAN CORPUSCULAR HEMOGLOBIN 31.2 pg (27.0-33.4); MEAN CORPUSCULAR HGB CONC 33.2 g/dL (32.0-36.0); MEAN CORPUSCULAR VOLUME 94 fl (80-97); MONOCYTES % (AUTO) 6.3 % (3-13); RED BLOOD COUNT 3.63 10^6/uL (3.72-5.28); RED CELL DISTRIBUTION WIDTH 13.2 % (11.5-14.0); SEGMENTED NEUTROPHILS % (AUTO) 52.9 % (42-78); WHITE BLOOD COUNT 7.8 10^3/uL (4.0-10.5)
[2016-07-27] MEDS: LANSOPRAZOLE 30 MG TAB.RAP.DR PO SCH (07:01)
[2016-07-27] MEDS: AZTREONAM 1.5 GM in DEXTROSE 5%-WATER 100 ML IV SCH (07:05)
[2016-07-27] MEDS: INSULIN LISPRO 100 UNIT/ML 3 ML VIAL SUBCUT PRN (08:19)
[2016-07-27 08:49] VITALS: BP 139/83
[2016-07-27] MEDS: GABAPENTIN 300 MG CAPSULE PO SCH (09:42)
[2016-07-27] MEDS: CLONAZEPAM 1 MG TABLET PO SCH (09:43)
[2016-07-27] MEDS: BENZTROPINE MESYLATE 1 MG TABLET PO SCH (09:43)
[2016-07-27] MEDS: ZIPRASIDONE HCL 40 MG CAPSULE PO SCH (09:43)
[2016-07-27] MEDS ORDERED: ALBUTEROL SULFATE HFA (90 MCG/PUFF) 8 GM MDI (1 MDI/ER DISP) IH PRN (10:59)
[2016-07-27] MEDS ORDERED: LEVOFLOXACIN 750 MG TABLET PO ONE (12:00)
[2016-07-27] MEDS ORDERED: FLUCONAZOLE 100 MG TABLET PO ONE (12:00)
[2016-07-27] MEDS ORDERED: INSULIN DETEMIR 100 UNIT/ML 3 ML PEN SUBCUT ONE (12:30)
[2016-07-27] MEDS ORDERED: ALBUTEROL SULFATE HFA (90 MCG/PUFF) 200 PUFF/8.5 GM MDI IH PRN (12:33)
[2016-07-27] MEDS ORDERED: LANSOPRAZOLE 30 MG TAB.RAP.DR PO SCH (16:00)
[2016-07-27] MEDS ORDERED: CYCLOBENZAPRINE HCL 10 MG TABLET PO SCH (22:00)
[2016-07-28] MEDS ORDERED: FOLIC ACID 1 MG TABLET PO SCH (08:00)
[2016-07-28] MEDS ORDERED: FOLIC ACID 1 MG PO SCH (08:00)
[2016-07-28] MEDS ORDERED: FERROUS SULFATE 325 MG TABLET PO SCH (10:00)
--- NOTE | 2016-07-29 19:54 | PDOC DISCHARGE SUMMARY ---
General - Admit/Disc Date/PCP Admission Date/Primary Care Provider: 07/25/16 18:34 Discharge Date: 07/27/16 - Discharge Diagnosis (1) Acute renal failure (ARF) Is this a current diagnosis for this admission?: Yes (2) Chin laceration Is this a current diagnosis for this admission?: Yes (3) Type 1 diabetes mellitus Is this a current diagnosis for this admission?: Yes (4) Bipolar disorder Is this a current diagnosis for this admission?: Yes (5) Hypothyroidism Is this a current diagnosis for this admission?: Yes (6) Tobacco dependency Is this a current diagnosis for this admission?: Yes - Additional Information Resuscitation Status: Full Code Discharge Diet: Diabetic Discharge Activity: Activity As Tolerated Home Medications: Albuterol Sulfate [Proair HFA] 2 puff IH Q6HP PRN 07/26/16 Benztropine Mesylate [Cogentin 1 mg Tablet] 1 mg PO BID 07/26/16 Clonazepam [Klonopin] 0.5 mg PO QHS 07/26/16 Cyclobenzaprine HCl [Flexeril 10 mg Tablet] 10 mg PO QHS 07/26/16 Ferrous Sulfate [Feosol 325 mg Tablet] 325 mg PO DAILY 07/26/16 Folic Acid 0.8 mg PO QAM 07/26/16 Gabapentin [Neurontin 300 mg Capsule] 300 mg PO Q12 07/26/16 Insulin Aspart [Novolog Flexpen] 0 units SQ .PERSLIDINGSCALE 07/26/16 Insulin Degludec [Tresiba Flextouch U-100] 22 units SQ QAM 07/26/16 Levothyroxine Sodium [Synthroid] 150 mcg PO QAM 07/26/16 Omeprazole 40 mg PO BID 07/26/16 Trazodone HCl [Desyrel] 300 mg PO QHS 07/26/16 Ziprasidone HCl [Geodon 40 mg Capsule] 40 mg PO BID 07/26/16 Zolpidem Tartrate [Ambien 5 mg Tablet] 5 mg PO QHS 07/26/16 Benztropine Mesylate [Cogentin 1 mg Tablet] 0.5 mg PO BID tablet 07/27/16 History of Present Illness History of Present Illness: DADA SWEET is a 30 year old female that presented to the emergency department after sustaining a fall resulting in a chin laceration. In the emergency department she was noted to be hypotensive. Further investigation of her hypotension indicated that she was in septic shock based upon elevated white blood count, tachycardia, hypotension, abnormal urinalysis. She was also noted to be in acute renal failure. Patient recently was treated with Macrobid for urinary tract infection. Chin laceration has been sutured with 3 interrupted sutures by emergency department physician. Medications have not been verified. Hospital Course Hospital Course: Patient initially was thought to be in septic shock due to her presentation, the patient's cultures were negative. Patient was found to be dehydrated with acute renal failure and her symptoms improved upon resolution of this condition. Patient had recently had her atypical antipsychotics changed. Urine culture grew out Staphylococcus epidermidis. This was felt to begin contaminant. Patient's antibiotics were stopped and she was discharged home in stable condition. Advised to discuss her atypical antipsychotic usage with her provider as patient has a long history of type 1 diabetes mellitus and is currently on Geodon. Physical Exam Vital Signs: Temp Pulse Resp BP Pulse Ox 98.3 F 96 16 139/83 H 99 07/27/16 12:16 07/27/16 12:16 07/27/16 12:16 07/27/16 12:16 07/27/16 12:16 Exam: GENERAL: No acute distress HEENT: Laceration to chin, conjunctiva clear, nonicteric, moist mucous membranes , no JVD, midline trachea RESPIRATORY: Clear to auscultation bilaterally, no wheezes, no rhonchi CARDIAC: Regular rate and rhythm, no murmurs/gallops/rubs ABDOMEN: Soft, nondistended, nontender, positive bowel sounds, no rebound, no guarding EXTREMETIES: No edema, cyanosis, clubbing NEUROLOGIC: Alert, oriented to person/place/time, CN's grossly intact, no focal deficits SKIN: No rash, wounds PSYCH: Normal mood, normal affect Results Laboratory Results: 07/27/16 05:54 07/27/16 04:18 Qualifiers PATEINT BEING DISCHARGED WITH ANY OF THE FOLLOWING DIAGNOSIS?: No Plan Time Spent: Less than 30 Minutes
== END 2016-07-27 12:38 | disposition home or self-care (01) | DRG 684 ==
LOC: ER 13:28 → UNDOADMIN 18:31 → EH 18:31 → ICU 20:16 → 4N 07-26 15:59
PROVIDERS: ADMIT Internal Medicine; ATTEND Internal Medicine
PROC: 0HQ1XZZ Repair Face Skin, External Approach (ICD-10-PCS; principal; 2016-07-25)
DX: N17.9 Acute kidney failure, unspecified (principal); E86.0 Dehydration; E87.5 Hyperkalemia; S01.81XA Laceration without foreign body of other part of head, initial encounter; E10.9 Type 1 diabetes mellitus without complications; E03.9 Hypothyroidism, unspecified; K21.9 Gastro-esophageal reflux disease without esophagitis; F31.9 Bipolar disorder, unspecified; Z79.899 Other long term (current) drug therapy; F17.200 Nicotine dependence, unspecified, uncomplicated; Z88.1 Allergy status to other antibiotic agents; Z88.8 Allergy status to other drugs, medicaments and biological substances; Z86.711 Personal history of pulmonary embolism; W19.XXXA Unspecified fall, initial encounter; Y93.9 Activity, unspecified; Y92.9 Unspecified place or not applicable; Y99.9 Unspecified external cause status
CPT/HCPCS: 36415; 80048; 80053; 81001; 81025; 82803; 82962; 83036; 83605; 85025; 87040; 87086; 87088; 87186; 99291; J1815; J3490; J7030

== ENCOUNTER 2016-09-06 12:19 | Emergency (ER) | payer MEDICAID ==
--- NOTE | 2016-09-06 12:48 | ER Document Report ---
ED Medical Screen (RME) - General Chief Complaint: Suicidal Ideation Stated Complaint: PSYCH EVAL Time Seen by Provider: 09/06/16 12:40 Information source: Patient Notes: Patient is a 30 year old female who presents to the ED with complaints of suicidal ideation. Patient took 2 Klonopin yesterday in an attempt to harm herself. TRAVEL OUTSIDE OF THE [place] IN LAST 30 DAYS: No - HPI Associated Symptoms: Other - see above - Related Data Allergies/Adverse Reactions: amoxicillin trihydrate [From Augmentin] Allergy (Severe, Verified 09/06/16 12:27 ) rash methylphenidate HCl [From Ritalin] Allergy (Severe, Verified 09/06/16 12:27) seizure Penicillins Allergy (Severe, Verified 09/06/16 12:27) rash Potassium Clavulanate * [From Augmentin] Allergy (Severe, Verified 09/06/16 12: 27) rash Sulfa (Sulfonamide Antibiotics) Allergy (Severe, Verified 09/06/16 12:27) rash amoxicillin [Amoxicillin] Allergy (Verified 09/06/16 12:27) Hives buspirone HCl [From BuSpar] Allergy (Verified 09/06/16 12:27) Psychosis enoxaparin sodium [From Lovenox] Allergy (Verified 09/06/16 12:27) rash Estrogens Allergy (Verified 09/06/16 12:27) Hives fondaparinux [From Arixtra] Allergy (Verified 09/06/16 12:27) rash Heparin Analogues [Heparin Agents] Allergy (Verified 09/06/16 12:27) rash ondansetron HCl [From Zofran] Allergy (Verified 09/06/16 12:27) Hives Past Medical History - General Information source: Patient - Social History Drug Abuse: Marijuana - Past Medical History Cardiac Medical History: Reports: Hx Hypercholesterolemia, Hx Pulmonary Embolism - History of same. Denies: Hx Congestive Heart Failure, Hx Coronary Artery Disease, Hx DVT, Hx Heart Attack, Hx Hypertension Pulmonary Medical History: Reports: Hx Asthma, Hx Pneumonia Denies: Hx Bronchitis, Hx COPD Neurological Medical History: Reports: Hx Seizures - DUE RITALIN Endocrine Medical History: Reports: Hx Diabetes Mellitus Type 1, Hx Hypothyroidism. Denies: Hx Diabetes Mellitus Type 2, Hx Hyperthyroidism Renal/ Medical History: Reports: Hx Ovarian Cysts. Denies: Hx Peritoneal Dialysis GI Medical History: Reports: Hx Gastroesophageal Reflux Disease. Denies: Hx Cirrhosis, Hx Hepatitis Musculoskeltal Medical History: Denies Hx Arthritis, Reports Hx Musculoskeletal Trauma - foot fracture Skin Medical History: Denies Hx Eczema, Denies Hx Psoriasis Psychiatric Medical History: Reports: Hx Bipolar Disorder, Hx Depression, Hx Schizophrenia Traumatic Medical History: Reports: Hx Fractures - left foot Infectious Medical History: Denies: Hx Hepatitis Past Surgical History: Reports: Hx Dilation and Curettage, Hx Oral Surgery - wisdom tooth, Other - D&C. Multiple dental extractions. - Immunizations Immunizations up to date: Yes Hx Diphtheria, Pertussis, Tetanus Vaccination: No Review of Systems - Review of Systems Constitutional: No symptoms reported EENT: No symptoms reported Cardiovascular: No symptoms reported Respiratory: No symptoms reported Gastrointestinal: No symptoms reported Genitourinary: No symptoms reported Female Genitourinary: No symptoms reported Musculoskeletal: No symptoms reported Skin: No symptoms reported Hematologic/Lymphatic: No symptoms reported Neurological/Psychological: See HPI, Suicidal ideation Physical Exam - Vital signs Vitals: Temp Pulse Resp BP Pulse Ox 98.5 F 111 H 16 107/69 97 09/06/16 12:27 09/06/16 12:27 09/06/16 12:27 09/06/16 12:27 09/06/16 12:27 - General General appearance: Other - continued to read book, would not make eye contact - Respiratory Respiratory status: No respiratory distress Chest status: Nontender Breath sounds: Normal Chest palpation: Normal - Cardiovascular Rhythm: Regular Heart sounds: Normal auscultation Murmur: No - Psychological Associated symptoms: Other - continued to read book, would not make eye contact Course - Vital Signs Vital signs: Temp Pulse Resp BP Pulse Ox 98.5 F 111 H 16 107/69 97 09/06/16 12:27 09/06/16 12:27 09/06/16 12:27 09/06/16 12:27 09/06/16 12:27 Scribe Documentation - Scribe Written by Scribe:: ruby Garcia, 09/06/2016, [id number] acting as scribe for :: Martell
[2016-09-06 13:09] LABS: ABSOLUTE EOSINOPHILS # (AUTO) 0.3 10^3/uL (0.0-0.6); ABSOLUTE LYMPHOCYTES (AUTO) 2.5 10^3/uL (0.5-4.7); ABSOLUTE MONOCYTES (AUTO) 0.4 10^3/uL (0.1-1.4); BASOPHILS % (AUTO) 0.7 % (0-2); EOSINOPHILS % (AUTO) 4.1 % (0-6); HEMATOCRIT 36.2 % (36.0-47.0); HGB HCT DIFFERENCE -0.2; LYMPHOCYTES % (AUTO) 40.3 % (13-45); MEAN CORPUSCULAR HEMOGLOBIN 31.6 pg (27.0-33.4); MEAN CORPUSCULAR HGB CONC 33.2 g/dL (32.0-36.0); MEAN CORPUSCULAR VOLUME 95 fl (80-97); MONOCYTES % (AUTO) 5.9 % (3-13); WHITE BLOOD COUNT 6.2 10^3/uL (4.0-10.5)
[2016-09-06 13:13] LABS: APPEARANCE,URINE SLIGHTLY-CLOUDY; BILIRUBIN,URINE NEGATIVE (NEGATIVE); GLUCOSE, URINE >=500 mg/dL (NEGATIVE); KETONES,URINE TRACE mg/dL (NEGATIVE); LEUKOCYTE ESTERASE,URINE NEGATIVE (NEGATIVE); NITRITE,URINE NEGATIVE (NEGATIVE); PROTEIN,URINE 100 mg/dL (NEGATIVE); URINE SPECIFIC GRAVITY 1.022; UROBILINOGEN,URINE NEGATIVE mg/dL (<2.0)
[2016-09-06 13:29] LABS: ALANINE AMINOTRANSFERASE 25 U/L (9-52); ALBUMIN 3.8 g/dL (3.5-5.0); ALKALINE PHOSPHATASE 83 U/L (38-126); ANION GAP 11 (5-19); ASPARTATE AMINO TRANSFERASE 13 U/L (14-36); BILIRUBIN,DIRECT 0.3 mg/dL (0.0-0.4); BILIRUBIN,TOTAL 0.4 mg/dL (0.2-1.3); BLOOD UREA NITROGEN 20 mg/dL (7-20); CALCIUM 9.3 mg/dL (8.4-10.2); CARBON DIOXIDE 26 mmol/L (22-30); CHLORIDE 100 mmol/L (98-107); CREATININE RESULT 1.09 mg/dL (0.52-1.25); SODIUM 137.1 mmol/L (137-145)
[2016-09-06 13:34] LABS: ALCOHOL < 10 mg/dL (NONE DETECTED)
[2016-09-06 13:37] LABS: GLUCOSE 415 mg/dL (75-110)
[2016-09-06 13:47] LABS: URINE BARBITURATES SCREEN NEGATIVE; URINE METHADONE SCREEN NEGATIVE; URINE OPIATES LOW NEGATIVE; URINE PHENCYCLIDINE SCREEN NEGATIVE
[2016-09-06] MEDS ORDERED: INSULIN REG, HUMAN 100 UNIT/ML 3 ML VIAL (PYX) SUBCUT ONE (14:00)
--- NOTE | 2016-09-06 15:41 | ER Document Report ---
ED General - General Chief Complaint: Suicidal Ideation Stated Complaint: PSYCH EVAL Time Seen by Provider: 09/06/16 12:40 TRAVEL OUTSIDE OF THE [place] IN LAST 30 DAYS: No - HPI Patient complains to provider of: Suicidal ideation homicidal ideation Notes: Patient reports to nursing staff and to the triage provider that she attempted suicide day prior to arrival taking 2 Klonopin. Also patient has been having thoughts about harming her boyfriend and her mother upon my evaluation patient is nonverbal does not give any information stating that all this information was obtained by the mother upfront patient adamantly denies any homicidal or suicidal ideation at this time however becomes very aggressive verbally when trying to ask any other further medical questions. Patient otherwise left alone sitting calmly coloring and multiple coloring books. - Related Data Allergies/Adverse Reactions: amoxicillin trihydrate [From Augmentin] Allergy (Severe, Verified 09/06/16 12:27 ) rash methylphenidate HCl [From Ritalin] Allergy (Severe, Verified 09/06/16 12:27) seizure Penicillins Allergy (Severe, Verified 09/06/16 12:27) rash Potassium Clavulanate * [From Augmentin] Allergy (Severe, Verified 09/06/16 12: 27) rash Sulfa (Sulfonamide Antibiotics) Allergy (Severe, Verified 09/06/16 12:27) rash amoxicillin [Amoxicillin] Allergy (Verified 09/06/16 12:27) Hives buspirone HCl [From BuSpar] Allergy (Verified 09/06/16 12:27) Psychosis enoxaparin sodium [From Lovenox] Allergy (Verified 09/06/16 12:27) rash Estrogens Allergy (Verified 09/06/16 12:27) Hives fondaparinux [From Arixtra] Allergy (Verified 09/06/16 12:27) rash Heparin Analogues [Heparin Agents] Allergy (Verified 09/06/16 12:27) rash ondansetron HCl [From Zofran] Allergy (Verified 09/06/16 12:27) Hives Past Medical History - General Information source: Patient - Social History Smoking Status: Current Every Day Smoker Drug Abuse: Marijuana Family History: Arthritis, CAD, DM, Hyperlipidemia, Hypertension, Malignancy, Thyroid Disfunction Patient has suicidal ideation: Yes Patient has homicidal ideation: Yes - Past Medical History Cardiac Medical History: Reports: Hx Hypercholesterolemia, Hx Pulmonary Embolism - History of same. Denies: Hx Congestive Heart Failure, Hx Coronary Artery Disease, Hx DVT, Hx Heart Attack, Hx Hypertension Pulmonary Medical History: Reports: Hx Asthma, Hx Pneumonia Denies: Hx Bronchitis, Hx COPD Neurological Medical History: Reports: Hx Seizures - DUE RITALIN Endocrine Medical History: Reports: Hx Diabetes Mellitus Type 1, Hx Hypothyroidism. Denies: Hx Diabetes Mellitus Type 2, Hx Hyperthyroidism Renal/ Medical History: Reports: Hx Ovarian Cysts. Denies: Hx Peritoneal Dialysis GI Medical History: Reports: Hx Gastroesophageal Reflux Disease. Denies: Hx Cirrhosis, Hx Hepatitis Musculoskeltal Medical History: Denies Hx Arthritis, Reports Hx Musculoskeletal Trauma - foot fracture Skin Medical History: Denies Hx Eczema, Denies Hx Psoriasis Psychiatric Medical History: Reports: Hx Bipolar Disorder, Hx Depression, Hx Schizophrenia Traumatic Medical History: Reports: Hx Fractures - left foot Infectious Medical History: Denies: Hx Hepatitis Past Surgical History: Reports: Hx Dilation and Curettage, Hx Oral Surgery - wisdom tooth, Other - D&C. Multiple dental extractions. - Immunizations Immunizations up to date: Yes Hx Diphtheria, Pertussis, Tetanus Vaccination: No Hx Pneumococcal Vaccination: 04/16/08 Review of Systems - Review of Systems Constitutional: No symptoms reported EENT: No symptoms reported Cardiovascular: No symptoms reported Respiratory: No symptoms reported Gastrointestinal: No symptoms reported Genitourinary: No symptoms reported Female Genitourinary: No symptoms reported Musculoskeletal: No symptoms reported Skin: No symptoms reported Hematologic/Lymphatic: No symptoms reported Neurological/Psychological: Suicidal ideation -: Yes All other systems reviewed and negative Physical Exam - Vital signs Vitals: Temp Pulse Resp BP Pulse Ox 98.5 F 111 H 16 107/69 97 09/06/16 12:27 09/06/16 12:27 09/06/16 12:27 09/06/16 12:27 09/06/16 12:27 Interpretation: Normal - General General appearance: Appears well, Alert - HEENT Head: Normocephalic, Atraumatic Eyes: Normal Pupils: PERRL - Respiratory Respiratory status: No respiratory distress Chest status: Nontender Breath sounds: Normal Chest palpation: Normal - Cardiovascular Rhythm: Regular Heart sounds: Normal auscultation Murmur: No - Abdominal Inspection: Normal Distension: No distension Bowel sounds: Normal Tenderness: Nontender Organomegaly: No organomegaly - Back Back: Normal, Nontender - Extremities General upper extremity: Normal inspection, Nontender, Normal color, Normal ROM , Normal temperature General lower extremity: Normal inspection, Nontender, Normal color, Normal ROM , Normal temperature, Normal weight bearing. No: Donna's sign - Neurological Neuro grossly intact: Yes Cognition: Normal Orientation: AAOx4 Graford Coma Scale Eye Opening: Spontaneous Michael Coma Scale Verbal: Oriented Graford Coma Scale Motor: Obeys Commands Graford Coma Scale Total: 15 Speech: Normal Motor strength normal: LUE, RUE, LLE, RLE Sensory: Normal - Psychological Associated symptoms: Other - Suicidal thoughts aggressive behavior - Skin Skin Temperature: Warm Skin Moisture: Dry Skin Color: Normal Course - Re-evaluation Re-evalutation: 09/06/16 15:40 Year ago is lying patient is reported to the nursing staff into the [employer] provider thatWhitneye took 2 Klonopin's and an attempt to overdosePatient diabetic with hyperglycemia no signs of DKA. Patient was placed on insulin sliding scale while she was here patient will be medically cleared - Vital Signs Vital signs: Temp Pulse Resp BP Pulse Ox 98.5 F 111 H 16 107/69 97 09/06/16 12:27 09/06/16 12:27 09/06/16 12:27 09/06/16 12:27 09/06/16 12:27 - Laboratory Result Diagrams: 09/06/16 12:50 09/06/16 12:50 Laboratory results interpreted by me: 09/06/16 09/06/16 12:50 12:50 Est GFR (Non-Af Amer) 59 L Glucose 415 H* AST 13 L Urine Protein 100 H Urine Glucose (UA) >=500 H Urine Ketones TRACE H Salicylates < 1.0 L Acetaminophen < 10 L Discharge - Discharge Clinical Impression: Suicidal ideation, Hyperglycemia Condition: Fair Disposition: PSYCH HOSP/UNIT
[2016-09-06] MEDS ORDERED: BENZTROPINE MESYLATE 1 MG TABLET PO ONE (18:36)
[2016-09-06] MEDS ORDERED: OLANZAPINE INJ/PF 10 MG SDV IM ONE (18:36)
--- NOTE | 2016-09-06 22:42 | EKG REPORT ---
SEVERITY:- NORMAL ECG - SINUS RHYTHM : Confirmed by: Keyonna Cunningham 06-Sep-2016 22:41:55
--- NOTE | 2016-09-07 10:07 | ER Document Report ---
Doctor's Note Notes: 09/07/16 10:06 30-year-old female who presented with suicidal and possibly homicidal ideations. Patient denies any such homicidal or suicidal ideations. She denies any auditory or visual hallucinations. She denies any pain, nausea, or vomiting. Patient is very calm and cooperative this morning. Repeat Accu-Chek and vital signs as recorded. Psychiatric services has seen and evaluated the patient and they would like the patient set up for discharge today.
[2016-09-07 11:41] VITALS: BP 104/75
--- NOTE | 2016-09-07 11:59 | ER Document Report ---
ED Psych Disorder / Suicide - General Chief Complaint: Suicidal Ideation Stated Complaint: PSYCH EVAL Time Seen by Provider: 09/06/16 12:40 Information source: Patient, DrBlanca Office - Zohra Newby @[facility] called in report , [facility] Records TRAVEL OUTSIDE OF THE [place] IN LAST 30 DAYS: No - HPI Patient complains to provider of: Agitated, Homicidal ideation, Suicidal ideation Onset: Other Onset was: Cannot confirm Suicide Risk Factors: Bipolar, Depressed, Frightened friends/family, Prior suicide attempt, Substance abuse Situational problems related to: Parent, Significant other Normal mood: No Associated symptoms: Agitated, Angry, Anxious, Labile, Restlessness, Tearful Similar symptoms previously: Yes Recently seen / treated by doctor: Yes - today, [facility] Notes: Patient is a 30 year old female who presented via POV, accompanied by family who have since left, due to SI. HI. Patient was reportedly seen at her psychiatric provider, [facility] earlier today and instructed to present to the ED. Patient did so, and also packed her bag. Patient is observed irritable and at times yelling and or crying. Patient this afternoon states she is here because her mother and [id number] (ANIKA) told lies and wouldn't let her talk at her appointment. Patient states all she said was that she would come to the ER. Patient denies the reports by her mother and ANIKA that she threatened to run into traffic, or cut her wrists. Patient states she did make comments about hurting her mother, but did not mean it. Patient' has a friend bedside, and patient provides verbal consent to speak with her. Patient adamant that she went to [facility] to see Rani to tell her the Bipolar Medication was not working, and that she needed a different one. Patient states she has tried numerous medications in the past; however, most of them cannot be taken due to her diabetes and or not working. Patient listed numerous medications, to include Depakote, Seroquel, Welbutrin, etc. Friend reports she was informed by patient's ANIKA and mother that she was making threatening statements. Friend had no further infomation to report. Patient is A&O. Mood is manic/labile with congruent affects. Patient denies SI /HI; however, patient was reportedly sent here due to SI and HI by her provider. Patient denies A/V H; delusions not noted. Thought processes were guarded. Conversational speech was labile for prosody. Intellectual abilities were estimated within low average range. Attention and focus were poor. Insight , judgment, and impulse control were poor. Unspecified Bipolar Disorder, per history Cannabis Use Disorder, per history Discussed plan of care with ED MD who will petition the patient for IVC. Patient will be reevaluated at a later time, likely in the morning for further evaluation and disposition due to the discrepancy in reports. I consulted with Dr. Armendariz in regards to the care and management of this patient. 09/07/2016 @ 0934 Conducted check in with patient who is a 30 year old female under IVC at [facility]. Patient today is calm and cooperative. Patient maintains she is not suicidal. Patient states she does not need to be here. Patient has been observed sitting in her bed, coloring and appropriately interacting with staff. Patient denies SI/HI. Patient states she would like her mother to pick her up and accompany her to her provider's office, [facility]. Patient made aware that her medications were discontinued here in the department and she was only administered a one time dose of Zyprexa to help her remain calm. Patient was observed calling her mother and requesting she present. Will talk with mother and patient once mother presents. Patient's mother did present bedside and express concerns and frustrations with the overall cycle of going to her provider, being sent here, and the medication changes. etc. Discussed with mother the need to break that cycle and assess for eligibility for enhanced services. During the discussion, patient acknowledged that she was scheduled for evaluation today. Mother states she is in agreement and will get her to [facility] either Tuesday or . Patient is A&O. Mood is euthymic with smiling affect. Patient denies SI/HI. Patent denies A/VH; delusions not noted. Thought processes were organized and linear. Intellectual abilities were estimated within low average range. Attention and focus were good. Insight, judgment, and impulse control were fair. Unspecified Bipolar Disorder, per history Cannabis Use Disorder, per history Patient is psychiatrically cleared for discharge. Patient is recommended for rescind IVC and discharge to her mother who states she is in agreement with exploring [facility] services, to include clinical assessment and hopeful Community Support Team. Patient acknowledges that she could benefit from a higher level of care ([facility] TECHNICIAN) and had in fact already discussed this with A and current provider. I consulted with Dr. Armendariz in regards to the care and management of this patient. ED MD is in agreement with disposition and recommendations. - Related Data Allergies/Adverse Reactions: amoxicillin trihydrate [From Augmentin] Allergy (Severe, Verified 09/06/16 12:27 ) rash methylphenidate HCl [From Ritalin] Allergy (Severe, Verified 09/06/16 12:27) seizure Penicillins Allergy (Severe, Verified 09/06/16 12:27) rash Potassium Clavulanate * [From Augmentin] Allergy (Severe, Verified 09/06/16 12: 27) rash Sulfa (Sulfonamide Antibiotics) Allergy (Severe, Verified 09/06/16 12:27) rash amoxicillin [Amoxicillin] Allergy (Verified 09/06/16 12:27) Hives buspirone HCl [From BuSpar] Allergy (Verified 09/06/16 12:27) Psychosis enoxaparin sodium [From Lovenox] Allergy (Verified 09/06/16 12:27) rash Estrogens Allergy (Verified 09/06/16 12:27) Hives fondaparinux [From Arixtra] Allergy (Verified 09/06/16 12:27) rash Heparin Analogues [Heparin Agents] Allergy (Verified 09/06/16 12:27) rash ondansetron HCl [From Zofran] Allergy (Verified 09/06/16 12:27) Hives Past Medical History - General Information source: Patient, Parent - mother to presents bedside, Office - [facility], [facility] Records - Social History Smoking Status: Current Every Day Smoker Cigarette use (# per day): Yes Smoking Education Provided: Yes Drug Abuse: Marijuana Family History: Arthritis, CAD, DM, Hyperlipidemia, Hypertension, Malignancy, Thyroid Disfunction Patient has suicidal ideation: No Patient has homicidal ideation: No - Past Medical History Cardiac Medical History: Reports: Hx Hypercholesterolemia, Hx Pulmonary Embolism - History of same. Denies: Hx Congestive Heart Failure, Hx Coronary Artery Disease, Hx DVT, Hx Heart Attack, Hx Hypertension Pulmonary Medical History: Reports: Hx Asthma, Hx Pneumonia Denies: Hx Bronchitis, Hx COPD Neurological Medical History: Reports: Hx Seizures - DUE RITALIN Endocrine Medical History: Reports: Hx Diabetes Mellitus Type 1, Hx Hypothyroidism. Denies: Hx Diabetes Mellitus Type 2, Hx Hyperthyroidism Renal/ Medical History: Reports: Hx Ovarian Cysts. Denies: Hx Peritoneal Dialysis GI Medical History: Reports: Hx Gastroesophageal Reflux Disease. Denies: Hx Cirrhosis, Hx Hepatitis Musculoskeltal Medical History: Denies Hx Arthritis, Reports Hx Musculoskeletal Trauma - foot fracture Skin Medical History: Denies Hx Eczema, Denies Hx Psoriasis Psychiatric Medical History: Reports: Hx Bipolar Disorder, Hx Depression, Hx Schizophrenia Traumatic Medical History: Reports: Hx Fractures - left foot Infectious Medical History: Denies: Hx Hepatitis Past Surgical History: Reports: Hx Dilation and Curettage, Hx Oral Surgery - wisdom tooth, Other - D&C. Multiple dental extractions. - Immunizations Immunizations up to date: Yes Hx Diphtheria, Pertussis, Tetanus Vaccination: No Hx Pneumococcal Vaccination: 04/16/08 Physical Exam - Vital signs Vitals: Temp Pulse Resp BP Pulse Ox 98.5 F 111 H 16 107/69 97 09/06/16 12:27 09/06/16 12:27 09/06/16 12:27 09/06/16 12:27 09/06/16 12:27 Course - Vital Signs Vital signs: Temp Pulse Resp BP Pulse Ox 97.7 F 102 H 16 104/75 97 09/07/16 11:40 09/07/16 11:40 09/07/16 11:40 09/07/16 11:40 09/07/16 11:40 - Laboratory Result Diagrams: 09/06/16 12:50 09/06/16 12:50 Laboratory results interpreted by me: 09/06/16 09/06/16 09/07/16 12:50 12:50 07:47 Est GFR (Non-Af Amer) 59 L Glucose 415 H* POC Glucose 114 H AST 13 L Urine Protein 100 H Urine Glucose (UA) >=500 H Urine Ketones TRACE H Salicylates < 1.0 L Acetaminophen < 10 L Discharge - Discharge Clinical Impression: Suicidal ideation, Hyperglycemia Bipolar disorder Qualifiers: Active/Remission status: remission status unspecified Qualified Code(s): F31.9 - Bipolar disorder, unspecified Condition: Stable Disposition: HOME, SELF-CARE Instructions: Bipolar Disorder (OM) Additional Instructions: Bipolar Disorder Bipolar disorder is also called manic-depressive disorder. Depression alternates with brain hyperactivity called vi. Each phase lasts from several days to a few weeks. We don't know exactly what causes bipolar disorder , but it's treatable. During the "manic phase," you may feel elated and energetic. You may have racing thoughts, rapid speech, increased activity, and grandiose ideas. During this time, you may not realize how poor your judgement is. Inappropriate spending, drug abuse, excessive alcohol use, marriage problems, and irresponsible sexual behavior are common during the manic phase. During the "depressive phase," you might feel depressed, guilty, worthless , fatigued, and unable to concentrate. You might have thoughts of suicide. Good treatments are available for bipolar disorder. Milliken is a classic drug for bipolar disorder, and is still often useful. If the manic phase is very mild, an antidepressant alone can be prescribed. If the manic phase is very severe, an antipsychotic medicine (such as Haldol) may be needed. The treatment must be matched to your symptoms, so it's important to work closely with your psychiatric care provider. Contact your physician, the hospital emergency center, crisis line, or your counsellor if you are losing control or having self-destructive thoughts. Please follow up with your provider to discuss medication management for your Bipolar Disorder. Please do not use drugs. Please return if your symptoms worsen. Referrals: [facility] [Provider Group] - Follow up in 3-5 days [facility] [Provider Group] - Follow up tomorrow (Please walk in tomorrow for evaluation for enhanced services.)
== END 2016-09-07 12:25 | disposition home or self-care (01) ==
LOC: ER 12:19
DX: R45.851 Suicidal ideations (principal); E10.65 Type 1 diabetes mellitus with hyperglycemia; F31.9 Bipolar disorder, unspecified; E78.00 Pure hypercholesterolemia, unspecified; F17.210 Nicotine dependence, cigarettes, uncomplicated; F12.99 Cannabis use, unspecified with unspecified cannabis-induced disorder; E03.9 Hypothyroidism, unspecified; Z88.0 Allergy status to penicillin; Z88.2 Allergy status to sulfonamides; Z86.711 Personal history of pulmonary embolism
CPT/HCPCS: 93005; 99285; 96372; 36415; 82962; 80307 ×4; 84703; 85025; 80053; 81001; 93010; J3490; J1815

== ENCOUNTER 2016-09-26 02:19 | Emergency (ER) | payer MEDICAID ==
--- NOTE | 2016-09-26 04:43 | ER Document Report ---
ED Psych Disorder / Suicide - General Mode of Arrival: Ambulatory Information source: Patient TRAVEL OUTSIDE OF THE [place] IN LAST 30 DAYS: No - HPI Patient complains to provider of: Suicidal ideation Similar symptoms previously: Yes Recently seen / treated by doctor: Yes <DRISS HUDSON - Last Filed: 09/26/16 05:50> <ANAT VIEYRA - Last Filed: 09/26/16 06:20> - General Chief Complaint: Suicidal Ideation Stated Complaint: SUICIDAL THOUGHTS Time Seen by Provider: 09/26/16 04:08 Notes: Patient is a 30-year-old female who presents to the emergency department today with complaints of suicidal ideation. Patient states she was recently at [facility] but she "lied to them because she wanted to go home". Patient states she does not believe she was ready but she told them what she needed to so that she could go home. Patient states she recently just got out of a relationship so she is suicidal again. Patient states that her last previous suicidal attempt was in July 2015. Patient states if she committed suicide, she would do so by not taking her insulin. (DRISS HUDSON) - Related Data Allergies/Adverse Reactions: amoxicillin trihydrate [From Augmentin] Allergy (Severe, Verified 09/26/16 02:31 ) rash methylphenidate HCl [From Ritalin] Allergy (Severe, Verified 09/26/16 02:31) seizure Penicillins Allergy (Severe, Verified 09/26/16 02:31) rash Potassium Clavulanate * [From Augmentin] Allergy (Severe, Verified 09/26/16 02: 31) rash Sulfa (Sulfonamide Antibiotics) Allergy (Severe, Verified 09/26/16 02:31) rash amoxicillin [Amoxicillin] Allergy (Verified 09/26/16 02:31) Hives buspirone HCl [From BuSpar] Allergy (Verified 09/26/16 02:31) Psychosis enoxaparin sodium [From Lovenox] Allergy (Verified 09/26/16 02:31) rash Estrogens Allergy (Verified 09/26/16 02:31) Hives fondaparinux [From Arixtra] Allergy (Verified 09/26/16 02:31) rash Heparin Analogues [Heparin Agents] Allergy (Verified 09/26/16 02:31) rash ondansetron HCl [From Zofran] Allergy (Verified 09/26/16 02:31) Hives Tide Soap Powder Allergy (Uncoded 09/26/16 02:31) Past Medical History - General Information source: Patient - Social History Smoking Status: Current Every Day Smoker Cigarette use (# per day): Yes Frequency of alcohol use: None Drug Abuse: None Lives with: Family Family History: Arthritis, CAD, DM, Hyperlipidemia, Hypertension, Malignancy, Thyroid Disfunction Patient has suicidal ideation: Yes - Past Medical History Cardiac Medical History: Reports: Hx Hypercholesterolemia, Hx Pulmonary Embolism - History of same. Pulmonary Medical History: Reports: Hx Asthma, Hx Pneumonia Neurological Medical History: Reports: Hx Seizures - DUE RITALIN Endocrine Medical History: Reports: Hx Diabetes Mellitus Type 1, Hx Hypothyroidism Renal/ Medical History: Reports: Hx Ovarian Cysts GI Medical History: Reports: Hx Gastroesophageal Reflux Disease Musculoskeltal Medical History: Reports Hx Musculoskeletal Trauma - foot fracture Psychiatric Medical History: Reports: Hx Bipolar Disorder, Hx Depression, Hx Schizophrenia Traumatic Medical History: Reports: Hx Fractures - left foot Past Surgical History: Reports: Hx Dilation and Curettage, Hx Oral Surgery - wisdom tooth, Other - D&C. Multiple dental extractions. - Immunizations Immunizations up to date: Yes Hx Diphtheria, Pertussis, Tetanus Vaccination: No Hx Pneumococcal Vaccination: 04/16/08 <DRISS HUDSON - Last Filed: 09/26/16 05:50> Review of Systems - Review of Systems Constitutional: No symptoms reported EENT: No symptoms reported Cardiovascular: No symptoms reported Respiratory: No symptoms reported Gastrointestinal: No symptoms reported Genitourinary: No symptoms reported Female Genitourinary: No symptoms reported Musculoskeletal: No symptoms reported Skin: No symptoms reported Hematologic/Lymphatic: No symptoms reported Neurological/Psychological: See HPI, Suicidal ideation -: Yes All other systems reviewed and negative <DRISS HUDSON - Last Filed: 09/26/16 05:50> Physical Exam <DRISS HUDSON - Last Filed: 09/26/16 05:50> <ANAT VIEYRA - Last Filed: 09/26/16 06:20> - Vital signs Vitals: Temp Pulse Resp BP Pulse Ox 97.9 F 104 H 12 112/72 99 09/26/16 02:33 09/26/16 02:33 09/26/16 02:33 09/26/16 02:33 09/26/16 02:33 - Notes Notes: PHYSICAL EXAM GENERAL: Somnolent but interacts appropriately once awake. No acute distress. HEAD: Normocephalic, atraumatic. EYES: Pupils equal, round, and reactive to light. Extraocular movements intact. ENT: Oral mucosa moist, tongue midline. NECK: Full range of motion. Supple. Trachea midline. LUNGS: Clear to auscultation bilaterally, no wheezes, rales, or rhonchi. No respiratory distress. HEART: Regular rate and rhythm. No murmurs, gallops, or rubs. ABDOMEN: Soft, ecchymosis and tenderness with palpation over site of insulin injections. Non-distended. Bowel sounds present in all 4 quadrants. EXTREMITIES: Moves all 4 extremities spontaneously. No edema, radial and dorsalis pedis pulses 2/4 bilaterally. No cyanosis. NEUROLOGICAL: Alert and oriented x3. Normal speech. Biceps and patellar DTRs 2+ bilaterally. PSYCH: Normal affect, normal mood. SKIN: Warm, dry, normal turgor. Diffuse erythematous rash with urticaria. ( DRISS HUDSON) Course - Laboratory Result Diagrams: 09/26/16 04:57 09/26/16 04:57 <DRISS HUDSON - Last Filed: 09/26/16 05:50> - Laboratory Result Diagrams: 09/26/16 04:57 09/26/16 04:57 <ANAT VIEYRA - Last Filed: 09/26/16 06:20> - Re-evaluation Re-evalutation: 09/26/16 06:17 CBC shows mild anemia with hemoglobin 11.8, CMP shows elevated glucose at 376, urinalysis does not show any ketones, no evidence of DKA, test negative, urine drug screen shows benzodiazepines and marijuana, salicylates, acetaminophen and alcohol are all undetectable. Patient is referred to our mental health team for further evaluation, she is medically cleared at this point. We are still going through her home medications to be able to order her chronic home medications. As the patient was just discharged from inpatient psychiatric facility on I do not feel that she likely meets IVC criteria at this point, she is a voluntary patient at this time, patient will be evaluated by ourr mental health team. (ANAT VIEYRA) - Vital Signs Vital signs: Temp Pulse Resp BP Pulse Ox 97.9 F 104 H 12 112/72 99 09/26/16 02:33 09/26/16 02:33 09/26/16 02:33 09/26/16 02:33 09/26/16 02:33 - Laboratory Laboratory results interpreted by me: 09/26/16 09/26/16 09/26/16 04:32 04:57 04:57 RBC 3.69 L Hgb 11.8 L Hct 34.7 L Est GFR (Non-Af Amer) 56 L Glucose 376 H Urine Protein 100 H Urine Glucose (UA) >=500 H Salicylates < 1.0 L Acetaminophen < 10 L - EKG Interpretation by Me Additional EKG results interpreted by me: 09/26/16 06:16 EKG shows sinus rhythm at a rate of 91, normal axis, normal intervals, no ST segment elevations or depressions, no T-wave inversions per my interpretation. ( ANAT VIEYRA) Discharge <DRISS HUDSON - Last Filed: 09/26/16 05:50> <ANAT VIEYRA - Last Filed: 09/26/16 06:20> - Discharge Clinical Impression: Suicidal ideation, Type 1 diabetes mellitus with hyperglycemia Condition: Stable Disposition: PSYCH HOSP/UNIT Scribe Attestation: 09/26/16 06:20 I personally performed the services described in the documentation, reviewed and edited the documentation which was dictated to the scribe in my presence, and it accurately records my words and actions. (ANAT VIEYRA) Scribe Documentation - Scribe Written by Gibran:: Gibran George, 09/26/2016 0555 acting as scribe for :: Rachid <DRISS HUDSON - Last Filed: 09/26/16 05:50>
[2016-09-26 05:04] LABS: APPEARANCE,URINE CLEAR; BILIRUBIN,URINE NEGATIVE (NEGATIVE); GLUCOSE, URINE >=500 mg/dL (NEGATIVE); KETONES,URINE NEGATIVE (NEGATIVE); LEUKOCYTE ESTERASE,URINE NEGATIVE (NEGATIVE); NITRITE,URINE NEGATIVE (NEGATIVE); PROTEIN,URINE 100 mg/dL (NEGATIVE); UROBILINOGEN,URINE NEGATIVE mg/dL (<2.0)
[2016-09-26 05:13] LABS: ABSOLUTE BASOPHILS # (AUTO) 0.1 10^3/uL (0.0-0.2); ABSOLUTE EOSINOPHILS # (AUTO) 0.1 10^3/uL (0.0-0.6); ABSOLUTE LYMPHOCYTES (AUTO) 2.2 10^3/uL (0.5-4.7); ABSOLUTE MONOCYTES (AUTO) 0.3 10^3/uL (0.1-1.4); ABSOLUTE NEUT (AUTO) 4.8 10^3/uL (1.7-8.2); HEMATOCRIT 34.7 % (36.0-47.0); HEMOGLOBIN 11.8 g/dL (12.0-15.5); HGB HCT DIFFERENCE 0.7; LYMPHOCYTES % (AUTO) 29.3 % (13-45); MEAN CORPUSCULAR HGB CONC 34.1 g/dL (32.0-36.0); MEAN CORPUSCULAR VOLUME 94 fl (80-97); MONOCYTES % (AUTO) 4.5 % (3-13); RED BLOOD COUNT 3.69 10^6/uL (3.72-5.28); RED CELL DISTRIBUTION WIDTH 13.1 % (11.5-14.0); SEGMENTED NEUTROPHILS % (AUTO) 64.2 % (42-78); WHITE BLOOD COUNT 7.4 10^3/uL (4.0-10.5)
[2016-09-26 05:15] LABS: URINE BARBITURATES SCREEN NEGATIVE; URINE METHADONE SCREEN NEGATIVE; URINE OPIATES LOW NEGATIVE
[2016-09-26 05:21] LABS: ALANINE AMINOTRANSFERASE 32 U/L (9-52); ALBUMIN 3.9 g/dL (3.5-5.0); ALKALINE PHOSPHATASE 76 U/L (38-126); ANION GAP 11 (5-19); ASPARTATE AMINO TRANSFERASE 24 U/L (14-36); BILIRUBIN,DIRECT 0.3 mg/dL (0.0-0.4); BILIRUBIN,TOTAL 0.3 mg/dL (0.2-1.3); BLOOD UREA NITROGEN 20 mg/dL (7-20); CALCIUM 9.2 mg/dL (8.4-10.2); CARBON DIOXIDE 26 mmol/L (22-30); CHLORIDE 100 mmol/L (98-107); CREATININE RESULT 1.14 mg/dL (0.52-1.25); GLUCOSE 376 mg/dL (75-110); SODIUM 137.1 mmol/L (137-145); TOTAL PROTEIN 7.3 g/dL (6.3-8.2)
[2016-09-26 05:27] LABS: ALCOHOL < 10 mg/dL (NONE DETECTED)
[2016-09-26 05:54] LABS: URINE PHENCYCLIDINE SCREEN NEGATIVE
--- NOTE | 2016-09-26 08:01 | EKG REPORT ---
SEVERITY:- BORDERLINE ECG - SINUS RHYTHM NONSPECIFIC ST-T CHANGES V2 : Confirmed by: Eleuterio Stratton MD 26-Sep-2016 08:01:03
[2016-09-26] MEDS: INSULIN REG, HUMAN 100 UNIT/ML 3 ML VIAL (PYX) SUBCUT SCH ×2 (08:52→11:32)
[2016-09-26] MEDS ORDERED: INSULIN DETEMIR 100 UNIT/ML 3 ML PEN SUBCUT SCH ×2 (10:00→22:00)
[2016-09-26] MEDS ORDERED: FERROUS SULFATE 325 MG TABLET PO SCH (10:00)
[2016-09-26] MEDS ORDERED: LANSOPRAZOLE 30 MG TAB.RAP.DR PO SCH (10:00)
[2016-09-26] MEDS ORDERED: ZIPRASIDONE HCL 40 MG CAPSULE PO SCH (10:00)
[2016-09-26] MEDS ORDERED: LEVOTHYROXINE SODIUM 0.15 MG TABLET PO SCH (10:00)
[2016-09-26] MEDS ORDERED: GABAPENTIN 300 MG CAPSULE PO SCH (10:00)
[2016-09-26 12:42] VITALS: BP 132/76
--- NOTE | 2016-09-26 12:45 | ER Document Report ---
ED Psych Disorder / Suicide - General Chief Complaint: Suicidal Ideation Stated Complaint: SUICIDAL THOUGHTS Time Seen by Provider: 09/26/16 04:08 Mode of Arrival: Ambulatory Information source: Patient, Parent, [facility] Records TRAVEL OUTSIDE OF THE [place] IN LAST 30 DAYS: No - HPI Patient complains to provider of: Suicidal ideation Onset: Just prior to arrival Onset was: Sudden Suicide Risk Factors: Bipolar, Depressed, Frightened friends/family, No spouse, Organized plan - via her insulin, Prior suicide attempt, Substance abuse, Other mental health dx. Situational problems related to: Significant other - break up with boyfriend, Other - chronic ideations Similar symptoms previously: Yes Recently seen / treated by doctor: Yes - [facility] Notes: Patient is a 30 year old female who presented overnight with c/o suicidal ideations, who reports she was just released from [facility] where she was receiving inpatient psychiatric help, likely sent directly from her provider [facility]. Patient is well known to this clinician as well as this department for numerous prior episodes of similar etiology. Patient is also known to abuse drugs, to include cocaine and marijuana. Patient this morning states she was drunk and high last night and has no idea what happened. Patient states she does not remember making statements of SI. Patient states she was at [facility] for 2 weeks "because they couldn't get my blood." Patient maintains she does not remember making SI type statements because she was under the influence. Patient states she wanted a night where she could relax, so she wanted to drink and smoke marijuana. Patient states she does not want to . Patient's mother presented bedside and states she does not know what is going on , but to her knowledge the patient is not suicidal. In this clinician's presence , the mother called patient's sister who denied patient was suicidal and instead stated she drank a [employer] Ice and smoked marijuana. Mother additionally called patient's boyfriend who states the patient was high and drunk, denies they broke up, and states out of the blue she stated she needed to get help. Patient is A&O. Mood is irritable with tearful affect. Patient denies suicidal/ homicidal ideations, intent, plan, or means. Patient denies A/V H; delusions not noted. Thought processes were guarded and focused on discharging home. Conversational speech was labile for prosody. Intellectual abilities were estimated within average range. Attention and focus were fair. Insight, judgment , impulse control were poor Unspecified Bipolar Disorder, per history Cannabis Use Disorder, per history Patient is psychiatrically cleared for discharge. Mother is bedside, and corroborates patient's denial of SI, as well as 2 additional collateral individuals. It appears this episode occurred within the context of her alcohol and drug abuse last night. Family is agreeable to watch the patient and assist her in following up with her provider. I consulted with Dr. Armendariz in regards to the care and management of this patient. - Related Data Allergies/Adverse Reactions: amoxicillin trihydrate [From Augmentin] Allergy (Severe, Verified 09/26/16 02:31 ) rash methylphenidate HCl [From Ritalin] Allergy (Severe, Verified 09/26/16 02:31) seizure Penicillins Allergy (Severe, Verified 09/26/16 02:31) rash Potassium Clavulanate * [From Augmentin] Allergy (Severe, Verified 09/26/16 02: 31) rash Sulfa (Sulfonamide Antibiotics) Allergy (Severe, Verified 09/26/16 02:31) rash amoxicillin [Amoxicillin] Allergy (Verified 09/26/16 02:31) Hives buspirone HCl [From BuSpar] Allergy (Verified 09/26/16 02:31) Psychosis enoxaparin sodium [From Lovenox] Allergy (Verified 09/26/16 02:31) rash Estrogens Allergy (Verified 09/26/16 02:31) Hives fondaparinux [From Arixtra] Allergy (Verified 09/26/16 02:31) rash Heparin Analogues [Heparin Agents] Allergy (Verified 09/26/16 02:31) rash ondansetron HCl [From Zofran] Allergy (Verified 09/26/16 02:31) Hives Tide Soap Powder Allergy (Uncoded 09/26/16 02:31) Past Medical History - General Information source: Patient, Parent, Relative, [facility] Records - Social History Smoking Status: Current Every Day Smoker Cigarette use (# per day): Yes Chew tobacco use (# tins/day): No Frequency of alcohol use: Social Drug Abuse: Marijuana, Prescription drugs Lives with: Family Family History: Arthritis, CAD, DM, Hyperlipidemia, Hypertension, Malignancy, Thyroid Disfunction Patient has suicidal ideation: No - now denies - Past Medical History Cardiac Medical History: Reports: Hx Hypercholesterolemia, Hx Pulmonary Embolism - History of same. Denies: Hx Congestive Heart Failure, Hx Coronary Artery Disease, Hx DVT, Hx Heart Attack, Hx Hypertension Pulmonary Medical History: Reports: Hx Asthma, Hx Pneumonia Denies: Hx Bronchitis, Hx COPD Neurological Medical History: Reports: Hx Seizures - DUE RITALIN Endocrine Medical History: Reports: Hx Diabetes Mellitus Type 1, Hx Hypothyroidism. Denies: Hx Diabetes Mellitus Type 2, Hx Hyperthyroidism Renal/ Medical History: Reports: Hx Ovarian Cysts. Denies: Hx Peritoneal Dialysis GI Medical History: Reports: Hx Gastroesophageal Reflux Disease. Denies: Hx Cirrhosis, Hx Hepatitis Musculoskeltal Medical History: Denies Hx Arthritis, Reports Hx Musculoskeletal Trauma - foot fracture Skin Medical History: Denies Hx Eczema, Denies Hx Psoriasis Psychiatric Medical History: Reports: Hx Bipolar Disorder, Hx Depression, Hx Schizophrenia Traumatic Medical History: Reports: Hx Fractures - left foot Infectious Medical History: Denies: Hx Hepatitis Past Surgical History: Reports: Hx Dilation and Curettage, Hx Oral Surgery - wisdom tooth, Other - D&C. Multiple dental extractions. - Immunizations Immunizations up to date: Yes Hx Diphtheria, Pertussis, Tetanus Vaccination: No Hx Pneumococcal Vaccination: 04/16/08 Physical Exam - Vital signs Vitals: Temp Pulse Resp BP Pulse Ox 97.9 F 104 H 12 112/72 99 09/26/16 02:33 09/26/16 02:33 09/26/16 02:33 09/26/16 02:33 09/26/16 02:33 Course - Vital Signs Vital signs: Temp Pulse Resp BP Pulse Ox 97.1 F 88 14 117/85 100 09/26/16 07:38 09/26/16 07:38 09/26/16 07:38 09/26/16 07:38 09/26/16 07:38 - Laboratory Result Diagrams: 09/26/16 04:57 09/26/16 04:57 Laboratory results interpreted by me: 09/26/16 09/26/16 09/26/16 04:32 04:57 04:57 RBC 3.69 L Hgb 11.8 L Hct 34.7 L Est GFR (Non-Af Amer) 56 L Glucose 376 H POC Glucose Urine Protein 100 H Urine Glucose (UA) >=500 H Salicylates < 1.0 L Acetaminophen < 10 L 09/26/16 11:22 RBC Hgb Hct Est GFR (Non-Af Amer) Glucose POC Glucose 241 H Urine Protein Urine Glucose (UA) Salicylates Acetaminophen Discharge - Discharge Clinical Impression: Suicidal ideation, Hyperglycemia due to type 1 diabetes mellitus Condition: Stable Disposition: HOME, SELF-CARE Additional Instructions: Bipolar Disorder Bipolar disorder is also called manic-depressive disorder. Depression alternates with brain hyperactivity called vi. Each phase lasts from several days to a few weeks. We don't know exactly what causes bipolar disorder , but it's treatable. During the "manic phase," you may feel elated and energetic. You may have racing thoughts, rapid speech, increased activity, and grandiose ideas. During this time, you may not realize how poor your judgement is. Inappropriate spending, drug abuse, excessive alcohol use, marriage problems, and irresponsible sexual behavior are common during the manic phase. During the "depressive phase," you might feel depressed, guilty, worthless , fatigued, and unable to concentrate. You might have thoughts of suicide. Good treatments are available for bipolar disorder. [place] is a classic drug for bipolar disorder, and is still often useful. If the manic phase is very mild, an antidepressant alone can be prescribed. If the manic phase is very severe, an antipsychotic medicine (such as Haldol) may be needed. The treatment must be matched to your symptoms, so it's important to work closely with your psychiatric care provider. Contact your physician, the hospital emergency center, crisis line, or your counsellor if you are losing control or having self-destructive thoughts. Acute Alcohol Intoxication Your evaluation revealed very high levels of alcohol. You can from drinking a large amount of alcohol rapidly! Further, there's the risk of falls , traffic accidents, and fights. A high portion (about 50 percent) of the serious injuries seen in hospital emergency rooms are caused by alcohol. Alcohol overdosage is usually due to an underlying emotional or psychiatric problem. You may benefit from counselling. If "binge" drinking is an ongoing problem for you, or if you drink ANY AMOUNT of alcohol EVERY day, you most likely have a tendency to alcoholism. You should avoid alcohol totally. We can refer you for treatment. Persons with alcohol problems are often also prone to other addictions -- you should discuss any use of medications or drugs with the doctor. You should be watched at home for the next several hours by someone who has not been drinking. Get extra fluids for the next 24 hours. Call the doctor if there is repeated vomiting, increasing headache, decreasing level of alertness, or any other worsening. Please follow up with your provider for continued medication management as well as outpatient therapy. Therapy will assist you in identifying coping skills to manage your stressors. Please return if your symptoms worsen. Referrals: [facility] [Provider Group] - Follow up in 3-5 days Scribe Attestation: 09/26/16 06:20 I personally performed the services described in the documentation, reviewed and edited the documentation which was dictated to the scribe in my presence, and it accurately records my words and actions.
[2016-09-26] MEDS ORDERED: CLONAZEPAM 1 MG TABLET PO SCH (22:00)
[2016-09-26] MEDS ORDERED: TRAZODONE HCL 50 MG TABLET PO SCH (22:00)
== END 2016-09-26 12:50 | disposition home or self-care (01) ==
LOC: ER 02:19
DX: F31.9 Bipolar disorder, unspecified (principal); F12.90 Cannabis use, unspecified, uncomplicated; R45.851 Suicidal ideations; E10.65 Type 1 diabetes mellitus with hyperglycemia; L50.9 Urticaria, unspecified; D64.9 Anemia, unspecified; F17.210 Nicotine dependence, cigarettes, uncomplicated; J45.909 Unspecified asthma, uncomplicated; Z91.5 Personal history of self-harm; Z88.0 Allergy status to penicillin; Z88.8 Allergy status to other drugs, medicaments and biological substances; Z88.2 Allergy status to sulfonamides; Z86.711 Personal history of pulmonary embolism; Z79.899 Other long term (current) drug therapy
CPT/HCPCS: 99285; 36415; 82962; 80307 ×4; 84703; 85025; 80053; 81001; 93005; 93010; J1815 ×2; J3490 ×3

== ENCOUNTER 2016-10-13 19:02 | Emergency (ER) | payer OTHER, MEDICAID | END 2016-10-13 19:45 | disposition left against medical advice (07) | LOC: ER 19:02 | DX: Z53.21 Procedure and treatment not carried out due to patient leaving prior to being seen by health care provider (principal) ==

== ENCOUNTER 2016-10-19 01:42 | Emergency (ER) | payer MEDICAID, OTHER ==
[2016-10-19] MEDS ORDERED: IPRATROPIUM/ALBUTEROL 0.5-2.5 MG/3 ML AMPUL NEB ONE (02:48)
--- NOTE | 2016-10-19 02:51 | ER Document Report ---
ED General - General Chief Complaint: Chest Congestion Stated Complaint: SHORTNESS OF BREATH Time Seen by Provider: 10/19/16 02:39 Notes: Patient is a 30-year-old female presents with complaint of cough. She has been coughing now for over a week. She does have history of asthma. She does smoke. She says her inhaler is not helping. She says she feels as if she has little mucus in her lungs. She is diabetic. She does take insulin. She says her blood sugars have been fluctuating. She said her blood sugar was 330 at home before she came to the ER. She did not take any insulin after checking her blood sugar. She has has had subjective fevers at home. No other complaints at this time. TRAVEL OUTSIDE OF THE [place] IN LAST 30 DAYS: No - Related Data Allergies/Adverse Reactions: amoxicillin trihydrate [From Augmentin] Allergy (Severe, Verified 09/26/16 02:31 ) rash methylphenidate HCl [From Ritalin] Allergy (Severe, Verified 09/26/16 02:31) seizure Penicillins Allergy (Severe, Verified 09/26/16 02:31) rash Potassium Clavulanate * [From Augmentin] Allergy (Severe, Verified 09/26/16 02: 31) rash Sulfa (Sulfonamide Antibiotics) Allergy (Severe, Verified 09/26/16 02:31) rash amoxicillin [Amoxicillin] Allergy (Verified 09/26/16 02:31) Hives buspirone HCl [From BuSpar] Allergy (Verified 09/26/16 02:31) Psychosis enoxaparin sodium [From Lovenox] Allergy (Verified 09/26/16 02:31) rash Estrogens Allergy (Verified 09/26/16 02:31) Hives fondaparinux [From Arixtra] Allergy (Verified 09/26/16 02:31) rash Heparin Analogues [Heparin Agents] Allergy (Verified 09/26/16 02:31) rash ondansetron HCl [From Zofran] Allergy (Verified 09/26/16 02:31) Hives Tide Soap Powder Allergy (Uncoded 09/26/16 02:31) Past Medical History - Social History Smoking Status: Current Every Day Smoker Frequency of alcohol use: None Drug Abuse: None Family History: Arthritis, CAD, DM, Hyperlipidemia, Hypertension, Malignancy, Thyroid Disfunction Patient has suicidal ideation: No Patient has homicidal ideation: No - Past Medical History Cardiac Medical History: Reports: Hx Hypercholesterolemia, Hx Pulmonary Embolism - History of same. Denies: Hx Congestive Heart Failure, Hx Coronary Artery Disease, Hx DVT, Hx Heart Attack, Hx Hypertension Pulmonary Medical History: Reports: Hx Asthma, Hx Pneumonia Denies: Hx Bronchitis, Hx COPD Neurological Medical History: Reports: Hx Seizures - DUE RITALIN Endocrine Medical History: Reports: Hx Diabetes Mellitus Type 1, Hx Hypothyroidism. Denies: Hx Diabetes Mellitus Type 2, Hx Hyperthyroidism Renal/ Medical History: Reports: Hx Ovarian Cysts. Denies: Hx Peritoneal Dialysis GI Medical History: Reports: Hx Gastroesophageal Reflux Disease. Denies: Hx Cirrhosis, Hx Hepatitis Musculoskeltal Medical History: Denies Hx Arthritis, Reports Hx Musculoskeletal Trauma - foot fracture Skin Medical History: Denies Hx Eczema, Denies Hx Psoriasis Psychiatric Medical History: Reports: Hx Bipolar Disorder, Hx Depression, Hx Schizophrenia Traumatic Medical History: Reports: Hx Fractures - left foot Infectious Medical History: Denies: Hx Hepatitis Past Surgical History: Reports: Hx Dilation and Curettage, Hx Oral Surgery - wisdom tooth, Other - D&C. Multiple dental extractions. - Immunizations Immunizations up to date: Yes Hx Diphtheria, Pertussis, Tetanus Vaccination: No Hx Pneumococcal Vaccination: 04/16/08 Review of Systems - Review of Systems Notes: My Normal Review Basic REVIEW OF SYSTEMS: CONSTITUTIONAL : subjective fevers EENT: Denies eye, ear, throat, or mouth pain or symptoms. Denies nasal or sinus congestion. CARDIOVASCULAR: Denies chest pain. RESPIRATORY: Recurrent cough GASTROINTESTINAL: Denies abdominal pain. Denies nausea, vomiting, or diarrhea. MUSCULOSKELETAL: Denies neck or back pain or joint pain or swelling. SKIN: Denies rash or skin lesions. NEUROLOGICAL: Denies altered mental status or loss of consciousness. Denies headache. Denies weakness or paralysis or loss of use of either side. Denies problems with gait or speech. Denies sensory or motor loss. ALL OTHER SYSTEMS REVIEWED AND NEGATIVE. Physical Exam - Vital signs Vitals: Temp Pulse Resp BP Pulse Ox 98.0 F 87 16 116/73 95 10/19/16 01:53 10/19/16 01:53 10/19/16 01:53 10/19/16 01:53 10/19/16 01:53 - Notes Notes: General Appearance: Well nourished, alert, cooperative, no acute distress, no obvious discomfort. Well-appearing. Wet cough on exam. Vitals: reviewed, See vital signs table. Head: no swelling or tenderness to the head Eyes: PERRL, EOMI, Conjuctiva clear Mouth: No decreasd moisture Throat: No tonsillar inflammation, No airway obstruction, No lymphadenopathy Ears: Normal-appearing tympanic membranes bilaterally. Neck: Supple, no neck tenderness, No thyromegaly Lungs: No wheezing, No rales, No rhonci, No accessory muscle use, good air exchange bilaterally. Heart: Normal rate, Regular rythm, No murmur, no rub Extremities: strength 5/5 in all extremities, good pulses in all extremities, no swelling or tenderness in the extremities, no edema. Skin: warm, dry, appropriate color, no rash Neuro: speech clear, oriented x 3, normal affect, responds appropriately to questions. Course - Vital Signs Vital signs: Temp Pulse Resp BP Pulse Ox 98.0 F 87 16 116/73 95 10/19/16 01:53 10/19/16 01:53 10/19/16 01:53 10/19/16 01:53 10/19/16 01:53 Discharge - Discharge Referrals: LION LOPEZ DO [Primary Care Provider] - Follow up as needed
--- NOTE | 2016-10-19 03:45 | RADIOLOGY REPORT (SQ) ---
EXAM DESCRIPTION: CHEST PA/LAT COMPLETED DATE/TIME: 10/19/2016 3:22 am REASON FOR STUDY: cough COMPARISON: 4.23.16 EXAM PARAMETERS: NUMBER OF VIEWS: two views TECHNIQUE: Digital Frontal and Lateral radiographic views of the chest acquired. RADIATION DOSE: NA LIMITATIONS: none FINDINGS: LUNGS AND PLEURA: No opacities, masses or pneumothorax. No pleural effusion. MEDIASTINUM AND HILAR STRUCTURES: No masses or contour abnormalities. HEART AND VASCULAR STRUCTURES: Heart normal size. No evidence for failure. BONES: No acute findings. HARDWARE: None in the chest. OTHER: No other significant finding. IMPRESSION: NO SIGNIFICANT RADIOGRAPHIC FINDING IN THE CHEST. TECHNICAL DOCUMENTATION: JOB ID: [id number] [employer]- All Rights Reserved
[2016-10-19] MEDS ORDERED: INSULIN REG, HUMAN 100 UNIT/ML 3 ML VIAL (PYX) SUBCUT ONE (03:53)
[2016-10-19] MEDS ORDERED: NORMAL SALINE 1000 ML 1,000 ML IV PRN (03:53)
[2016-10-19 04:31] LABS: ABSOLUTE EOSINOPHILS # (AUTO) 0.2 10^3/uL (0.0-0.6); ABSOLUTE LYMPHOCYTES (AUTO) 3.9 10^3/uL (0.5-4.7); ABSOLUTE MONOCYTES (AUTO) 0.4 10^3/uL (0.1-1.4); ABSOLUTE NEUT (AUTO) 3.4 10^3/uL (1.7-8.2); BASOPHILS % (AUTO) 0.5 % (0-2); EOSINOPHILS % (AUTO) 2.9 % (0-6); HEMATOCRIT 35.3 % (36.0-47.0); HEMOGLOBIN 12.4 g/dL (12.0-15.5); HGB HCT DIFFERENCE 1.9; LYMPHOCYTES % (AUTO) 49.2 % (13-45); MEAN CORPUSCULAR HEMOGLOBIN 33.1 pg (27.0-33.4); MEAN CORPUSCULAR HGB CONC 35.1 g/dL (32.0-36.0); MEAN CORPUSCULAR VOLUME 94 fl (80-97); MONOCYTES % (AUTO) 5.1 % (3-13); RED BLOOD COUNT 3.75 10^6/uL (3.72-5.28); RED CELL DISTRIBUTION WIDTH 12.8 % (11.5-14.0); SEGMENTED NEUTROPHILS % (AUTO) 42.3 % (42-78); WHITE BLOOD COUNT 7.9 10^3/uL (4.0-10.5)
[2016-10-19 04:39] LABS: ANION GAP 13 (5-19); BLOOD UREA NITROGEN 16 mg/dL (7-20); CARBON DIOXIDE 23 mmol/L (22-30); CHLORIDE 99 mmol/L (98-107); CREATININE RESULT 1.03 mg/dL (0.52-1.25); POTASSIUM 4.6 mmol/L (3.6-5.0); SODIUM 134.9 mmol/L (137-145)
[2016-10-19 04:47] LABS: GLUCOSE 460 mg/dL (75-110)
[2016-10-19] MEDS ORDERED: AZITHROMYCIN 250 MG TABLET PO ONE (04:58)
[2016-10-19 05:33] VITALS: BP 120/82
== END 2016-10-19 05:31 | disposition home or self-care (01) ==
LOC: ER 01:42
DX: J45.909 Unspecified asthma, uncomplicated (principal); E10.65 Type 1 diabetes mellitus with hyperglycemia; F17.200 Nicotine dependence, unspecified, uncomplicated; R05 Cough; Z87.01 Personal history of pneumonia (recurrent); Z88.0 Allergy status to penicillin; Z88.8 Allergy status to other drugs, medicaments and biological substances; Z88.2 Allergy status to sulfonamides; Z91.048 Other nonmedicinal substance allergy status
CPT/HCPCS: 94640; 99284; 36415; 82962; 85025; 80048; 71020; Q0144; J1815; J7620

== ENCOUNTER 2016-11-03 13:32 | Emergency (ER) | payer MEDICAID ==
[2016-11-03 14:38] LABS: APPEARANCE,URINE CLEAR; BILIRUBIN,URINE NEGATIVE (NEGATIVE); GLUCOSE, URINE 150 mg/dL (NEGATIVE); KETONES,URINE NEGATIVE (NEGATIVE); LEUKOCYTE ESTERASE,URINE NEGATIVE (NEGATIVE); NITRITE,URINE NEGATIVE (NEGATIVE); PROTEIN,URINE 100 mg/dL (NEGATIVE); URINE SPECIFIC GRAVITY 1.012; UROBILINOGEN,URINE NEGATIVE mg/dL (<2.0)
[2016-11-03 14:55] LABS: URINE BARBITURATES SCREEN NEGATIVE; URINE METHADONE SCREEN NEGATIVE; URINE OPIATES LOW NEGATIVE; URINE PHENCYCLIDINE SCREEN NEGATIVE
--- NOTE | 2016-11-03 15:14 | RADIOLOGY REPORT (SQ) ---
EXAM DESCRIPTION: FOOT RIGHT COMPLETE COMPLETED DATE/TIME: 11/03/2016 2:59 pm REASON FOR STUDY: pain and injury COMPARISON: 07/04/2016 NUMBER OF VIEWS: Three views. TECHNIQUE: AP, lateral and oblique radiographic images acquired of the right foot. LIMITATIONS: None. FINDINGS: MINERALIZATION: Normal. BONES: No acute fracture or dislocation. 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 No articular surface collapse. JOINTS: No effusions. SOFT TISSUES: No soft tissue swelling. No foreign body. OTHER: No other significant finding. IMPRESSION: No acute fracture. 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
[2016-11-03 16:10] LABS: ABSOLUTE EOSINOPHILS # (AUTO) 0.1 10^3/uL (0.0-0.6); ABSOLUTE LYMPHOCYTES (AUTO) 2.5 10^3/uL (0.5-4.7); ABSOLUTE MONOCYTES (AUTO) 0.3 10^3/uL (0.1-1.4); ABSOLUTE NEUT (AUTO) 5.8 10^3/uL (1.7-8.2); BASOPHILS % (AUTO) 0.3 % (0-2); EOSINOPHILS % (AUTO) 0.7 % (0-6); HEMATOCRIT 36.1 % (36.0-47.0); HEMOGLOBIN 12.4 g/dL (12.0-15.5); HGB HCT DIFFERENCE 1.1; LYMPHOCYTES % (AUTO) 28.4 % (13-45); MEAN CORPUSCULAR HEMOGLOBIN 32.4 pg (27.0-33.4); MEAN CORPUSCULAR HGB CONC 34.5 g/dL (32.0-36.0); MEAN CORPUSCULAR VOLUME 94 fl (80-97); MONOCYTES % (AUTO) 3.6 % (3-13); RED BLOOD COUNT 3.85 10^6/uL (3.72-5.28); RED CELL DISTRIBUTION WIDTH 13.4 % (11.5-14.0); WHITE BLOOD COUNT 8.7 10^3/uL (4.0-10.5)
--- NOTE | 2016-11-03 16:12 | ER Document Report ---
ED Extremity Problem, Lower - General Chief Complaint: Foot Pain Stated Complaint: FALL/RIGHT FOOT PAIN Time Seen by Provider: 11/03/16 14:09 Mode of Arrival: Ambulatory Information source: Patient Notes: 30-year-old female presented to ED for pain in her right foot since she fell twice today. She states she was unsure if she was . She states she took her insulin as prescribed this morning and her blood sugar was 31 she became confused and fell. She states she then ate a lot and took 10 units of NovoLog for blood sugar of 328. She states that now her foot hurts across the top and at the arch of the foot. TRAVEL OUTSIDE OF THE [place] IN LAST 30 DAYS: No - HPI Patient complains to provider of: Injury, Pain Location: Foot Occurred: This morning Where: Home, Indoors Onset/Duration: Sudden, Persistent Quality of pain: Achy, Sharp Severity: Moderate Pain Level: 3 Context: Fell Recent injury: Possibly Associated symptoms: Painful ambulation Exacerbated by: Movement, Walking Relieved by: Elevation, Ice, Rest - Related Data Allergies/Adverse Reactions: amoxicillin trihydrate [From Augmentin] Allergy (Severe, Verified 11/03/16 13:41 ) rash methylphenidate HCl [From Ritalin] Allergy (Severe, Verified 11/03/16 13:41) seizure Penicillins Allergy (Severe, Verified 11/03/16 13:41) rash Potassium Clavulanate * [From Augmentin] Allergy (Severe, Verified 11/03/16 13: 41) rash Sulfa (Sulfonamide Antibiotics) Allergy (Severe, Verified 11/03/16 13:41) rash amoxicillin [Amoxicillin] Allergy (Verified 11/03/16 13:41) Hives buspirone HCl [From BuSpar] Allergy (Verified 11/03/16 13:41) Psychosis enoxaparin sodium [From Lovenox] Allergy (Verified 11/03/16 13:41) rash Estrogens Allergy (Verified 11/03/16 13:41) Hives fondaparinux [From Arixtra] Allergy (Verified 11/03/16 13:41) rash Heparin Analogues [Heparin Agents] Allergy (Verified 11/03/16 13:41) rash ondansetron HCl [From Zofran] Allergy (Verified 11/03/16 13:41) Hives Tide Soap Powder Allergy (Uncoded 11/03/16 13:41) Past Medical History - General Information source: Patient - Social History Smoking Status: Current Every Day Smoker Cigarette use (# per day): Yes Chew tobacco use (# tins/day): No Smoking Education Provided: Yes - Less than 2 minute Frequency of alcohol use: None Drug Abuse: None Lives with: Family Family History: Arthritis, CAD, DM, Hyperlipidemia, Hypertension, Malignancy, Thyroid Disfunction Patient has suicidal ideation: No Patient has homicidal ideation: No - Past Medical History Cardiac Medical History: Reports: Hx Hypercholesterolemia, Hx Pulmonary Embolism - History of same. Pulmonary Medical History: Reports: Hx Asthma, Hx Pneumonia EENT Medical History: Reports: None Neurological Medical History: Reports: Hx Seizures - DUE RITALIN Endocrine Medical History: Reports: Hx Diabetes Mellitus Type 1, Hx Hypothyroidism Renal/ Medical History: Reports: Hx Ovarian Cysts Malignancy Medical History: Reports: None GI Medical History: Reports: Hx Gastroesophageal Reflux Disease Musculoskeltal Medical History: Reports Hx Musculoskeletal Trauma - foot fracture Skin Medical History: Reports None Psychiatric Medical History: Reports: Hx Bipolar Disorder, Hx Depression, Hx Schizophrenia Traumatic Medical History: Reports: Hx Fractures - left foot Infectious Medical History: Reports: None Past Surgical History: Reports: Hx Dilation and Curettage, Hx Oral Surgery - wisdom tooth, Other - D&C. Multiple dental extractions. - Immunizations Immunizations up to date: Yes Hx Diphtheria, Pertussis, Tetanus Vaccination: No Hx Pneumococcal Vaccination: 04/16/08 Review of Systems - Review of Systems Constitutional: No symptoms reported EENT: No symptoms reported Cardiovascular: No symptoms reported Respiratory: No symptoms reported Gastrointestinal: No symptoms reported Genitourinary: No symptoms reported Female Genitourinary: No symptoms reported Musculoskeletal: Other - Right foot pain Skin: No symptoms reported Hematologic/Lymphatic: No symptoms reported Neurological/Psychological: No symptoms reported Physical Exam - Vital signs Vitals: Temp Pulse Resp BP Pulse Ox 98.3 F 94 16 124/87 H 97 11/03/16 13:41 11/03/16 13:41 11/03/16 13:41 11/03/16 13:41 11/03/16 13:41 Interpretation: Normal - General General appearance: Appears well, Alert - HEENT Head: Normocephalic, Atraumatic Eyes: Normal Pupils: PERRL - Respiratory Respiratory status: No respiratory distress Chest status: Nontender Breath sounds: Normal Chest palpation: Normal - Cardiovascular Rhythm: Regular Heart sounds: Normal auscultation Murmur: No - Abdominal Inspection: Normal Distension: No distension Bowel sounds: Normal Tenderness: Nontender Organomegaly: No organomegaly - Back Back: Normal, Nontender - Extremities General upper extremity: Normal inspection, Nontender, Normal color, Normal ROM , Normal temperature General lower extremity: Normal color, Normal ROM, Normal temperature. No: Donna's sign Foot: Tender, Edema, Metatarsal compress. pain, No evidence of FB. No: Abrasion , Deformity, Ecchymosis, Instability, Laceration, Nail injury, Navicular tenderness, Puncture wound, Tender 5th metatarsal, Unable to bear weight - For ambulation - Neurological Neuro grossly intact: Yes Cognition: Normal Orientation: AAOx4 Mumford Coma Scale Eye Opening: Spontaneous Michael Coma Scale Verbal: Oriented Mumford Coma Scale Motor: Obeys Commands Mumford Coma Scale Total: 15 Speech: Normal Motor strength normal: LUE, RUE, LLE, RLE Sensory: Normal - Psychological Associated symptoms: Normal affect, Normal mood - Skin Skin Temperature: Warm Skin Moisture: Dry Skin Color: Normal Course - Re-evaluation Re-evalutation: 11/03/16 22:09 She was alert and oriented throughout her stay in the emergency room. She had blood work urine and x-ray completed. The x-ray showed she had a avascular necrosis to the metacarpal. dr Young was consulted and he stated that the patient will need blood work and orthopedic will need to be consulted for possible surgery. Blood work was completed Dr. Diego was consulted he stated the patient could be sent home with a posterior splint crutches and follow-up with him in the office. - Vital Signs Vital signs: Temp Pulse Resp BP Pulse Ox 98.1 F 102 H 20 144/92 H 96 11/03/16 16:52 11/03/16 16:52 11/03/16 16:52 11/03/16 16:52 11/03/16 16:52 - Laboratory Result Diagrams: 11/03/16 15:50 11/03/16 15:50 Laboratory results interpreted by me: 11/03/16 11/03/16 11/03/16 14:10 14:21 15:50 Glucose 154 H POC Glucose 316 H Urine Protein 100 H Urine Glucose (UA) 150 H Urine Blood SMALL H - Diagnostic Test Radiology reviewed: Image reviewed, Reports reviewed Procedures - Immobilization Right Foot Immobilizer type: Crutches, Posterior ankle Performed by: PCT Post-Proc Neuro Vasc Exam: Normal Alignment checked and good: Yes Discharge - Discharge Clinical Impression: Pain in right foot, 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 I have consulted orthopedics and is spoken with Dr. Diego. He states that you can go home with a splint on your foot and call his office to schedule follow- up outpatient. SPLINT PRECAUTIONS: A splint has been placed. This will protect the area while healing begins. Your problem does NOT normally require a cast. It MUST, however, be held still! Keep the splint on ALL THE TIME until instructed to remove it by the doctor. As you begin to use the area, be careful. You shouldn't do anything which causes discomfort -- you may disturb the injury even with the splint in place. After the initial period of rest and elevation, if splint does not prevent pain when you move, come back. You may require placement of a different splint , or a cast. If there is unexpected severe pain, or numbness, discoloration, or swelling beyond the splint, you should return at once. If you feel that the splint has broken or become loose, come back. USE OF CRUTCHES: The doctor has recommended that you not bear weight at this time. You will need to use crutches. Adjust the crutches so the tops come to about two inches under the armpit while you are standing upright. Use your hands -- not your armpits -- to support your weight. To get into a chair, support yourself with one crutch on the injured side. Hold the chair with the other hand, then lower yourself while putting all your weight on the good leg. Going up stairs is `good leg up, step up, then bring up crutches and bad leg.' Down stairs is `bad leg and crutches down, then bring good leg down.' If you develop numbness or swelling in an arm or hand, you are using the crutches incorrectly. Return if you are having any problems with the crutches. ICE & ELEVATION: Apply ice packs frequently against the painful area. Many different schedules are recommended, such as "20 minutes on, 20 minutes off" or "one hour ice, two hours rest." If you need to work, you may need to go longer between ice treatments. You should plan to have the area ice packed AT LEAST one- fourth of the time. The ice should be applied over the wrap, tape, or splint, or over a layer of cloth -- not directly against the skin. Some ice bags have a built-in cloth and can be put directly on the skin. Your injured part should be elevated as much as possible over the next 48 hours. Try to keep the injury above the level of the heart. Avoid use of the injured area. Elevation and rest will decrease the swelling. USE OF [id number] IBUPROFEN: Ibuprofen (Advil, Nuprin, Medipren, Motrin IB) is a medication for fever and pain control. In addition, it has anti- inflammatory effects which may be beneficial, especially in the treatment of injuries. It's best to take ibuprofen with food. Persons with ulcer disease or allergy to aspirin should notify their physician of this before taking ibuprofen. Ibuprofen can be given every four to six hours, for a total of four doses daily. Age Pain or fever dose Antiinflammatory dose 6-8 yr 200 mg (1 tab) 200 mg (1 tab) 9-11 yr 200 mg (1 tab) 200-400 mg (1-2 tab) 11-14 yr 200-400 mg (1-2 tab) 400 mg (2 tab) 15-adult 400 mg (2 tab) 600 mg (3 tab) FOLLOW-UP CARE: If you have been referred to a physician for follow-up care, call the physician s office for an appointment as you were instructed or within the next two days. If you experience worsening or a significant change in your symptoms, notify the physician immediately or return to the Emergency Department at any time for re-evaluation. Forms: Elevated Blood Pressure, Smoking Cessation Education Referrals: KAYLEN DIEGO MD [ACTIVE STAFF] - Follow up as needed
[2016-11-03 16:20] LABS: ALANINE AMINOTRANSFERASE 27 U/L (9-52); ALKALINE PHOSPHATASE 77 U/L (38-126); ANION GAP 13 (5-19); ASPARTATE AMINO TRANSFERASE 20 U/L (14-36); BILIRUBIN,DIRECT 0.3 mg/dL (0.0-0.4); BILIRUBIN,TOTAL 0.3 mg/dL (0.2-1.3); BLOOD UREA NITROGEN 19 mg/dL (7-20); CALCIUM 9.5 mg/dL (8.4-10.2); CARBON DIOXIDE 27 mmol/L (22-30); CHLORIDE 99 mmol/L (98-107); CREATININE RESULT 0.93 mg/dL (0.52-1.25); GLUCOSE 154 mg/dL (75-110); POTASSIUM 3.8 mmol/L (3.6-5.0); SODIUM 139.2 mmol/L (137-145); TOTAL PROTEIN 7.2 g/dL (6.3-8.2)
[2016-11-03] MEDS ORDERED: DIPH/PERTUSS(ACELL)/TETANUS VAC/PF 0.5 ML SYR (>=10YO) IM ONE (16:29)
[2016-11-03 16:53] VITALS: BP 144/92
== END 2016-11-03 17:02 | disposition home or self-care (01) ==
LOC: ER 13:32
PROC: 2W3QX1Z Immobilization of Right Lower Leg using Splint (ICD-10-PCS; principal; 2016-11-03)
DX: M87.074 Idiopathic aseptic necrosis of right foot (principal); E10.8 Type 1 diabetes mellitus with unspecified complications; M79.671 Pain in right foot; W19.XXXA Unspecified fall, initial encounter; F17.210 Nicotine dependence, cigarettes, uncomplicated
CPT/HCPCS: 36415; 80053; 80307; 81001; 81025; 82962; 85025; 87040; 90471; 90715; 99284